=== PATIENT | female | born 1985 | race Caucasian/White ===

== ENCOUNTER 2018-04-07 15:03 | Emergency (ER) | END 2018-04-07 19:31 | disposition home or self-care (01) ==

== ENCOUNTER 2018-08-18 17:31 | Inpatient (IN) | payer MEDICAID ==
[~2018-08-18] VITALS: Ht 160 cm; Wt 130.1 kg
[~2018-08-18 17:31] MED LIST: ACET500C5 PO; CEPH-443 PO
[2018-08-18 17:46] VITALS: Ht 160 cm; Wt 130.1 kg
[2018-08-18 17:47] VITALS: BP 128/59; PULSE 72; RESP 18
--- NOTE | 2018-08-18 19:13 | TRIAGE ---
OB Triage Datetime Report Generated by CPN: 08/18/2018 19:13 Datetime: 08/18/2018 17:44 Assessment Type: Triage Maternal Assessment Level of Consciousness: Fully Conscious DTR's/Clonus: DTRs 2+; No Clonus Headache: Denies Blurred Vision: No Respiratory Effort: Unlabored; Regular Rhythm; Equal Expansion Breath Sounds, Left: Clear and Equal Breath Sounds, Right: Clear and Equal Nausea/Vomiting: Denies RUQ Epigastric Pain: Denies Lower Extremities Edema: None Degree: None Upper Extremities Edema: None Degree: None Facial Edema: None Fall Risk Assessment History of Falling: (0) No Secondary Diagnosis: (0) No Ambulatory Aid: (0) Bedrest/Nurse Assist IV Therapy: (0) No Gait: (0) Normal/Bedrest/Immobile Mental Status: (0) Oriented to Own Ability Fall Score: 0 Fall Risk Score Definition: No Risk: No action required Datetime: 08/18/2018 17:43 Time of Arrival: 08/18/2018 17:23 EGA: 26.2 Arrived By: Ambulatory Arrived From: Home Chief Complaint: pt here c/o ABD. PAIN Movement: Present Contractions: Denies/Absent Rupture of Membranes: Denies Vaginal Bleeding: None Vaginal Discharge: Denies Recent Sexual Intercouse: Denies Abdominal Trauma: Not Applicable Patient Complaints: None Time Provider Notified: 08/18/2018 18:00 Provider Notified: HADADIAN Initial Plan: UA/CVL/KAYCEE/FFN Datetime: 08/18/2018 17:40 Labor Evaluation Monitor Mode: External Heart Rate Monitor Mode: External US
[2018-08-18] MEDS ORDERED: ONDANSETRON 4 MG INJ IV PRN (19:30)
[2018-08-18] MEDS ORDERED: LACTATED RINGER'S 500 ML IV ONE (19:30)
[2018-08-18] MEDS ORDERED: MAGNESIUM SULFATE 4 GM/100 ML 100 ML IV ONE (19:30)
[2018-08-18] MEDS ORDERED: ACETAMINOPHEN 325 MG TAB PO PRN (19:30)
[2018-08-18] MEDS ORDERED: AMPICILLIN 2 GM/NS (PMX) 100 ML IV SCH (21:00)
[2018-08-18] MEDS: DOCUSATE SODIUM 100 MG CAP PO SCH (21:00)
[2018-08-18] MEDS: LACTATED RINGER'S 1,000 ML IV SCH (21:33)
[2018-08-18] MEDS: DEXAMETHASONE 4 MG/ML 5 ML INJ IM SCH (21:52)
[2018-08-18] MEDS: MAGNESIUM SULFATE 20 GM/500 ML 500 ML IV SCH (22:15)
[2018-08-19] MEDS: LACTATED RINGER'S 1,000 ML IV SCH ×2 (03:09→21:22)
[2018-08-19] MEDS: AMPICILLIN 2 GM/NS (PMX) 100 ML IVPB SCH ×2 (04:21→08:57)
[2018-08-19] MEDS: MAGNESIUM SULFATE 20 GM/500 ML 500 ML IV SCH ×3 (05:26→16:17)
[2018-08-19] MEDS: DOCUSATE SODIUM 100 MG CAP PO SCH ×2 (08:56→21:22)
[2018-08-19] MEDS: DEXAMETHASONE 4 MG/ML 5 ML INJ IM SCH ×2 (08:57→21:23)
[2018-08-20] MEDS: MAGNESIUM SULFATE 20 GM/500 ML 500 ML IV SCH ×2 (02:03→10:36)
[2018-08-20] MEDS: DOCUSATE SODIUM 100 MG CAP PO SCH ×2 (09:03→21:44)
[2018-08-20] MEDS: DEXAMETHASONE 4 MG/ML 5 ML INJ IM SCH (09:04)
[2018-08-20] MEDS: LACTATED RINGER'S 1,000 ML IV SCH ×2 (10:19→23:27)
--- NOTE | 2018-08-20 19:28 | HP ---
Date/Time of Note Date/Time of Note DATE: 08/20/18 TIME: 19:12 OB - History Hx of Present Free Text/Dictation Date of admission: 08/18/2018 Late Entry Note- Patient seen at 10:00 on 08/19/18 23 year-old 1 with single intrauterine at 26 weeks and 4 days with a ROXANN of 11/22/2018 admitted last night due to irregular uterine contractions and a cervical length of 1.4 cm. She states good movement. She denies nausea, vomiting, shortness of breath, chest pain, headache, visual changes, vaginal bleeding or LOF. Chief Complaint: Irregular uterine contractions Estimated Due Date: November 22, 2018 : 1 Care: Good Care Ultrasounds: Normal mid trimester US Obstetrical Complications: None Medical Complications: None Past Family/Social History * Past Medical, Surgical, Family and Obstetric Histories reviewed from chart. OB Admission Exam Vital Signs Vital Signs Vital Signs Date Temp Pulse Resp B/P (MAP) Pulse Ox O2 O2 Flow FiO2 Time Delivery Rate 08/18/18 98.2 72 18 128/59 Room Air 17:47 (82) Physical Exam HEENT: WNL Heart: Rhythm Normal Lungs: Clear Abdomen: WNL Extremities: Normal Membranes: Intact Heart Rate: 140's Accelerations: Accelerations Present Decelerations: No Decelerations Varibility: Moderate Contractions on Admission: >10 Minutes Apart Intensity: Mild Last 72 hours Lab Results CBC & BMP 08/18/18 20:34 Liver Function Test 08/18/18 20:34 Alanine Aminotransferase (ALT/SGPT) 26 Albumin 3.9 Alkaline Phosphatase 89 Aspartate Amino Transf (AST/SGOT) 22 Direct Bilirubin 0.00 Total Protein 7.5 Magnesium Level Test 08/19/18 00:30 08/19/18 08:06 08/19/18 12:13 08/19/18 18:35 Magnesium Level 3.9 H 4.8 H 5.2 *H 5.6 *H Test 08/20/18 00:43 08/20/18 06:30 Magnesium Level 5.7 *H 5.6 *H OB Assessment/Plan Other plan: 33-year-old 1 with single intrauterine at 26 weeks and 3 days with obesity and short cervix 1) care: - FHR: No sign of metabolic acidosis- Category I - Continuous EFM, toco - CBC, blood type and screen - vitamin, ferrous sulfate 325 mg daily p.o. - SCD - Weight on admission and then weekly - Per patient 1 hour GCT done which was abnormal, 3-hour GTT done at the clinic. Result is pending 2) Short cervix-1.4 cm - Dexamethasone 6 mg every 12 hours for 4 doses, she received first dose at 2200 on 08/18/2018 - Magnesium sulfate for 24 hours after 4thdose of dexamethasone - Ampicillin for GBS prophylaxis - Please see the orders - Perinatology and neonatology consult 3) obesity-III: Risks including but not limited to gestational diabetes, preeclampsia, macrosomia, stillbirth, complication with delivery and : infection, DVT, pulmonary edema discussed in detail with patient. She expressed understanding. Diet and exercise and significance of losing weight discussed. Consult with clinical geneticist MERA Nation Aug 20, 2018 19:27
--- NOTE | 2018-08-20 19:32 | PN ---
Date/Time of Note Date/Time of Note DATE: 08/20/18 TIME: 19:28 OB Subjective Subjective Subjective Patient seen and examined. She states good movement. She denies nausea, vomiting, shortness of breath, chest pain, abdominal pain, headache, visual changes, vaginal bleeding or LOF. OB Objective Objective Objective General: Patient appears well, alert and oriented, NAD, appropriate mood and affect ABD: gravid, soft, non-tender. Back: No CVA tenderness (B/L) LE: Mild edema. No clubbing, cyanosis, edema, thigh or calf tenderness bilaterally FHT: 130 bpm , moderate variability with acceleration, no deceleration-category I Contractions: None OB Assessment/Plan Other plan: 33-year-old 1 with single intrauterine at 26 weeks and 4 days with obesity and short cervix 1) care: - FHR: No sign of metabolic acidosis- Category I - Continuous EFM, toco - Cont vitamin, ferrous sulfate 325 mg daily p.o. - SCDs - Weekly weight - Per patient 1 hour GCT done which was abnormal, 3-hour GTT done at the clinic. Result is pending 2) Short cervix-1.4 cm - Dexamethasone 6 mg every 12 hours for 4 doses. Last dose was at 10 AM today - Magnesium sulfate for 12 hours after 4th dose of dexamethasone - She has no uterine contraction, ampicillin discontinued - Please see the orders - Perinatology and neonatology consult 3) obesity-III: Risks including but not limited to gestational diabetes, preeclampsia, macrosomia, stillbirth, complication with delivery and : infection, DVT, pulmonary edema discussed in detail with patient. She expressed understanding. Diet and exercise and significance of losing weight discussed. Consult with line repairer tower MERA Nation Aug 20, 2018 19:32
--- NOTE | 2018-08-21 01:03 | CONS ---
DATE OF ADMISSION: 08/18/2018 DATE OF CONSULTATION: 08/20/2018 TYPE OF CONSULTATION: Perinatology consult. HISTORY OF PRESENT ILLNESS: The patient is a 33-year-old G1 at currently 26 weeks and 4 days, presen zac with contraction. Her cervical length was found to be 1.4 cm, was placed on magnesium, given dex amethasone. Her medical history is not significant. The result of her glucose test that was done on Saturday came back and apparently it was normal. She does have her urinalysis showed 100,000 of mixed gram-positive. She received overall 24 hours of antibiotics. PHYSICAL EXAMINATION: VITAL SIGNS: Stable. PHYSICAL EXAMINATION: Deferred. HEART TONES: Reassuring. Currently, now reassuring for gestational age. No contraction. IMPRESSION: Intrauterine at 26 weeks and 4 days with labor and very short cervix, on magnesium sulfate, receiving dexamethasone. 100,000 of mixed gram-positive and organism which essentially is mentioned as contaminant. However, given the 100,000, it is concerning, but she did receive 24-hour ____ worth of ampicillin. RECOMMENDATIONS: I do recommend in-house management until 28 weeks. Please refrain from transvagina l cervical ____ unless it is necessary or at the time of discharge. Magnesium sulfate should be continued until 24 hours after the last dose of dexamethasone. At 28 weeks, if cervical length has not changed and she is not jocelyne, then we may consider send ing the patient home with labor precaution. In one week, I do recommend repeating a urinalys is with probably cast UA just to make sure that there is no evidence of urinary tract infection. Dictated By: SAKSHI ASHLEY MD ST/NTS Conf#: [id number] DID#: [id number] CC: MERA RICO MD;*EndCC*
[2018-08-21] MEDS: MAGNESIUM SULFATE 20 GM/500 ML 500 ML IV SCH (04:06)
--- NOTE | 2018-08-21 09:24 | PN ---
Date/Time of Note Date/Time of Note DATE: 08/21/18 TIME: 09:19 OB Subjective Subjective Subjective Patient denies any vaginal bleeding, contractions or decreased movement. Reports have small amounts of leaking with cough that she had a prior to admission to the hospital. Thinks that it is urine. Reports calf pain in the RT . Denies any chest pain shortness of breath OB Objective Objective Objective General: Patient appears well, alert and oriented, NAD, appropriate mood and affect ABD: gravid, soft, non-tender. Back: No CVA tenderness (B/L) LE: . No clubbing, cyanosis, + 2 symmetric edema, thigh or calf tenderness bilaterally FHT: 130 bpm , moderate variability with acceleration, no deceleration-category I Contractions: None Sterile speculum examination: Negative pooling, negative nitrazine, R OM test was obtained and is pending. KAYCEE requested VS - Last 72 Hours, by Label Date Temp Pulse Resp B/P (MAP) Pulse Ox O2 O2 Flow FiO2 Time Delivery Rate 08/18/18 98.2 72 18 128/59 Room Air 17:47 (82) Laboratory Tests Test 08/21/18 06:26 Lab Scanned Report REFERENCE LAB OB Assessment/Plan Other Assessment: Admitted for short cervix Stable, asymptomatic, Leaking of fluid, likely urine, sterile speculum examination negative, R OM test obtained and was sent KAYCEE requested Likely leaking of urine with coughing On magnesium, for neuroprophylaxis and for tocolysis no evidence of MAC toxicity Consider tapering magnesium, repeat CL and UA, if remain stable, might discharge per perinatologist recommendation with follow up in 2-3 days after DC home with her own OB office. Status post dexamethasone for lung maturity, more than 48 hours past last dose Follow-up with R OM test and KAYCEE Plan of care discussed with the patient and with PATSY CLARKE MD Aug 21, 2018 09:24
[2018-08-21] MEDS: DOCUSATE SODIUM 100 MG CAP PO SCH ×2 (10:55→21:07)
[2018-08-21] MEDS: LACTATED RINGER'S 1,000 ML IV SCH (13:53)
[2018-08-22] MEDS: DOCUSATE SODIUM 100 MG CAP PO SCH ×2 (09:00→21:47)
[2018-08-23] MEDS: DOCUSATE SODIUM 100 MG CAP PO SCH ×2 (08:53→21:10)
--- NOTE | 2018-08-23 12:50 | PN ---
Date/Time of Note Date/Time of Note DATE: 08/23/18 TIME: 12:45 OB Subjective Subjective Subjective Late entry note is seen on 08/22/2018 Patient seen and examined. She states good movement. She denies nausea, vomiting, shortness of breath, chest pain, abdominal pain, headache, visual changes, vaginal bleeding or LOF. OB Objective Objective Objective General: Patient appears well, alert and oriented, NAD, appropriate mood and affect ABD: gravid, soft, non-tender. Back: No CVA tenderness (B/L) LE: Mild edema. No clubbing, cyanosis, edema, thigh or calf tenderness bilaterally FHT: 125 bpm , moderate variability with acceleration, no deceleration-category I Contractions: None OB Assessment/Plan Other plan: 33-year-old 1 with single intrauterine at 26 weeks and 6 days with obesity and short cervix 1) care: - FHR: No sign of metabolic acidosis- Category I - NST every shift - Cont vitamin, ferrous sulfate 325 mg daily p.o. - SCDs - Weekly weight - She was complaining of possible leakage of fluid yesterday, speculum exam, Nitrazine test and ROM plus were negative. Ultrasound performed KAYCEE 12.4 - One of her GTT early in and at 24+ weeks was normal 2) Short cervix-1.4 cm - She is currently on rest with bathroom privileges - s/p receiving dexamethasone for 2 days, currently is steroid benefited - She received magnesium sulfate for neuro protection - She has no uterine contraction - Perinatology consult appreciated 3) obesity-III: Risks including but not limited to gestational diabetes, preeclampsia, macrosomia, stillbirth, complication with delivery and : infection, DVT, pulmonary edema discussed in detail with patient. She expressed understanding. Diet and exercise and significance of losing weight discussed. Consult with principal programmer done. MERA RICO Aug 23, 2018 12:50
--- NOTE | 2018-08-23 12:52 | PN ---
Date/Time of Note Date/Time of Note DATE: 08/23/18 TIME: 12:50 OB Subjective Subjective Subjective Patient seen and examined. She states good movement. She denies nausea, vomiting, shortness of breath, chest pain, abdominal pain, headache, visual changes, vaginal bleeding or LOF. OB Objective Objective Objective General: Patient appears well, alert and oriented, NAD, appropriate mood and affect ABD: gravid, soft, non-tender. Back: No CVA tenderness (B/L) LE: Mild edema. No clubbing, cyanosis, edema, thigh or calf tenderness bilaterally FHT: 130 bpm , moderate variability with acceleration, no deceleration-category I Contractions: None OB Assessment/Plan Other plan: 33-year-old 1 with single intrauterine at 26 weeks and 6 days with obesity and short cervix 1) care: - FHR: No sign of metabolic acidosis- Category I - NST every shift - Cont vitamin, ferrous sulfate 325 mg daily p.o. - SCDs - Weekly weight - One of her GTT early in and at 24+ weeks was normal 2) Short cervix-1.4 cm - She is currently on rest with bathroom privileges - s/p receiving dexamethasone for 2 days, currently is steroid benefited - She received magnesium sulfate for neuro protection - She has no uterine contraction - Perinatology consult appreciated - Bessy CL at 28 wks 3) obesity-III: Risks including but not limited to gestational diabetes, preeclampsia, macrosomia, stillbirth, complication with delivery and : infection, DVT, pulmonary edema discussed in detail with patient. She expressed understanding. Diet and exercise and significance of losing weight discussed. Consult with cyber security systems engineer done. MERA RICO Aug 23, 2018 12:52
[2018-08-24] MEDS: DOCUSATE SODIUM 100 MG CAP PO SCH ×2 (09:33→21:00)
--- NOTE | 2018-08-25 00:56 | PN ---
Date/Time of Note Date/Time of Note DATE: 08/25/18 TIME: 00:51 OB Subjective Subjective Subjective Patient seen and examined. She states good movement. She denies nausea, vomiting, shortness of breath, chest pain, abdominal pain, headache, visual changes, vaginal bleeding or LOF. OB Objective Objective Objective General: Patient appears well, alert and oriented, NAD, appropriate mood and affect ABD: gravid, soft, non-tender. Back: No CVA tenderness (B/L) LE: Mild edema. No clubbing, cyanosis, edema, thigh or calf tenderness bilaterally FHT: 135 bpm , moderate variability with acceleration, no deceleration-category I Contractions: None OB Assessment/Plan Other plan: 33-year-old 1 with single intrauterine at 27 weeks with obesity and short cervix 1) care: - FHR: No sign of metabolic acidosis- Category I - NST every shift - Cont vitamin, ferrous sulfate 325 mg daily p.o. - SCDs - Weekly weight - One of her GTT early in and at 24+ weeks was normal 2) Short cervix-1.4 cm - She is currently on rest with bathroom privileges - She has no uterine contraction - s/p receiving dexamethasone and magnesium sulfate - Perinatology consult appreciated - Repeat CL at 28 wks 3) obesity-III: Risks including but not limited to gestational diabetes, preeclampsia, macrosomia, stillbirth, complication with delivery and : infection, DVT, pulmonary edema discussed in detail with patient. She expressed understanding. Diet and exercise and significance of losing weight discussed. Consult with drywall mechanic done. 4) +U/C > 100,000 with mixed G+ due to contamination, repeat U/A tomorrow MERA RICO Aug 25, 2018 00:56
[2018-08-25] MEDS: DOCUSATE SODIUM 100 MG CAP PO SCH ×2 (09:42→21:00)
--- NOTE | 2018-08-26 01:22 | PN ---
Date/Time of Note Date/Time of Note DATE: 08/26/18 TIME: : OB Subjective Subjective Subjective Late entry note. Patient seen at 0 730 on 08/25/2018 Patient seen and examined. She states good movement. She denies nausea, vomiting, shortness of breath, chest pain, abdominal pain, headache, visual changes, vaginal bleeding or LOF. OB Objective Objective Objective General: Patient appears well, alert and oriented, NAD, appropriate mood and affect ABD: gravid, soft, non-tender. Back: No CVA tenderness (B/L) LE: Mild edema. No clubbing, cyanosis, edema, thigh or calf tenderness bilaterally FHT: 140 bpm , moderate variability with acceleration, no deceleration-category I Contractions: None OB Assessment/Plan Other plan: 33-year-old 1 with single intrauterine at 27 2/7 weeks with obesity and short cervix 1) care: - FHR: No sign of metabolic acidosis- Category I - NST every shift - Cont vitamin, ferrous sulfate 325 mg daily p.o. - SCDs - Weekly weight - One of her GTT early in and at 24+ weeks was normal 2) Short cervix-1.4 cm - She is currently on rest with bathroom privileges - She has no uterine contraction - s/p receiving dexamethasone and magnesium sulfate - Perinatology consult appreciated - Repeat CL at 28 wks 3) obesity-III: Risks including but not limited to gestational diabetes, preeclampsia, macrosomia, stillbirth, complication with delivery and : infection, DVT, pulmonary edema discussed in detail with patient. She expressed understanding. Diet and exercise and significance of losing weight discussed. Consult with field artillery crewmember done. 4) +U/C > 100,000 with mixed G+ due to contamination, repeat U/A tomorrow MERA RICO Aug 26, 2018 01:22
[2018-08-26] MEDS: DOCUSATE SODIUM 100 MG CAP PO SCH (08:48)
[2018-08-26] MEDS ORDERED: DIPHTH/TET/ACEL PERTUSS (ADULT) 0.5 ML VIAL IM* ONE (19:00)
--- NOTE | 2018-08-26 19:41 | PN ---
Date/Time of Note Date/Time of Note DATE: 08/26/18 TIME: 19:38 OB Subjective Subjective Subjective Patient seen and examined. She states good movement. She denies nausea, vomiting, shortness of breath, chest pain, abdominal pain, headache, visual changes, vaginal bleeding or LOF. OB Objective Objective Objective General: Patient appears well, alert and oriented, NAD, appropriate mood and affect ABD: gravid, soft, non-tender. Back: No CVA tenderness (B/L) LE: Mild edema. No clubbing, cyanosis, edema, thigh or calf tenderness bilaterally FHT: 130 bpm , moderate variability with acceleration, no deceleration-category I Contractions: None OB Assessment/Plan Other plan: 33-year-old 1 with single intrauterine at 27 2/7 weeks with obesity and short cervix 1) care: - FHR: No sign of metabolic acidosis- Category I - NST every shift - Cont vitamin, ferrous sulfate 325 mg daily p.o. - SCDs - Weekly weight - One of her GTT early in and at 24+ weeks was normal - Tdap vaccine tomorrow 2) Short cervix-1.4 cm - She is currently on rest with bathroom privileges - She has no uterine contraction - s/p receiving dexamethasone and magnesium sulfate - Perinatology consult appreciated - Repeat CL at 28 wks 3) obesity-III: Risks including but not limited to gestational diabetes, preeclampsia, macrosomia, stillbirth, complication with delivery and : infection, DVT, pulmonary edema discussed in detail with patient. She expressed understanding. Diet and exercise and significance of losing weight discussed. Consult with flower stripper done. MERA RICO Aug 26, 2018 19:41
[2018-08-27] MEDS: DOCUSATE SODIUM 100 MG CAP PO SCH ×2 (09:00→21:33)
--- NOTE | 2018-08-27 15:01 | PN ---
Date/Time of Note Date/Time of Note DATE: 08/27/18 TIME: 14:57 OB Subjective Subjective Subjective Patient seen and examined. She states good movement. She denies nausea, vomiting, shortness of breath, chest pain, abdominal pain, headache, visual changes, vaginal bleeding or LOF. OB Objective Objective Objective General: Patient appears well, alert and oriented, NAD, appropriate mood and affect ABD: gravid, soft, non-tender. Back: No CVA tenderness (B/L) LE: Mild edema. No clubbing, cyanosis, edema, thigh or calf tenderness bilaterally FHT: 135 bpm , moderate variability with acceleration, no deceleration-category I Contractions: None OB Assessment/Plan Other plan: 33-year-old 1 with single intrauterine at 27 4/7 weeks with obesity and short cervix 1) care: - FHR: No sign of metabolic acidosis- Category I - NST every shift - Cont vitamin, ferrous sulfate 325 mg daily p.o. - SCDs - Weekly weight - One of her GTT early in and at 24+ weeks was normal - She received Tdap vaccine today 2) Short cervix-1.4 cm - She is currently on rest with bathroom privileges - She has no uterine contraction - s/p receiving dexamethasone and magnesium sulfate - Perinatology consult appreciated - Repeat CL at 28 wks 3) obesity-III: Risks including but not limited to gestational diabetes, preeclampsia, macrosomia, stillbirth, complication with delivery and : infection, DVT, pulmonary edema discussed in detail with patient. She expressed understanding. Diet and exercise and significance of losing weight discussed. Consult with driver lifter of sanitation truck done. MERA RICO Aug 27, 2018 15:01
[2018-08-28] MEDS: DOCUSATE SODIUM 100 MG CAP PO SCH ×2 (09:41→21:10)
--- NOTE | 2018-08-28 16:51 | PN ---
Date/Time of Note Date/Time of Note DATE: 08/28/18 TIME: 16:49 OB Subjective Subjective Subjective Patient is comfortable. Denies any leaking of fluid, vaginal bleeding decreased movement. Denies any complaint. OB Objective Objective Objective General appearance: Alert and oriented x4 does not appear to be in any acute distress Abdomen: Soft, gravid, fundal height consider gestational age NST: No contraction of the monitor. heart tracing appropriate for gestational age Extremities: No calf tenderness, no click no cord palpable OB Assessment/Plan Other Assessment: 27 weeks and 5 days Admitted for short cervix. No evidence of labor. Status post a full course of steroid and magnesium about a week ago when she was admitted. Currently off of magnesium. She is a stable. No evidence of labor. No evidence of PPROM. Continue routine antepartum care Consider repeat cervical length tomorrow Follow-up with perinatologist PATSY DEVI MD Aug 28, 2018 16:51
[2018-08-28] MEDS ORDERED: DIPHTH/TET/ACEL PERTUSS (ADULT) 0.5 ML VIAL IM* ONE (19:00)
[2018-08-29] MEDS: DOCUSATE SODIUM 100 MG CAP PO SCH ×2 (09:35→21:00)
[2018-08-29] MEDS: PRENATAL VITAMIN PO SCH (21:50)
[2018-08-29] MEDS: FERROUS SULFATE (EC) 325 MG TAB PO SCH (21:50)
--- NOTE | 2018-08-29 22:45 | PN ---
Date/Time of Note Date/Time of Note DATE: 08/29/18 TIME: 22:42 OB Subjective Subjective Subjective Patient seen and examined. She states good movement. She denies nausea, vomiting, shortness of breath, chest pain, abdominal pain, headache, visual changes, vaginal bleeding or LOF. OB Objective Objective Objective General: Patient appears well, alert and oriented, NAD, appropriate mood and affect ABD: gravid, soft, non-tender. Back: No CVA tenderness (B/L) LE: Mild edema. No clubbing, cyanosis, edema, thigh or calf tenderness bilaterally FHT: 14 bpm , moderate variability with acceleration, no deceleration-category I Contractions: None OB Assessment/Plan Other plan: 33-year-old 1 with single intrauterine at 27 6/7 weeks with obesity and short cervix 1) care: - FHR: No sign of metabolic acidosis- Category I - NST every shift - Cont vitamin, ferrous sulfate 325 mg daily p.o. - SCDs - Weekly weight - One of her GTT early in and at 24+ weeks was normal - She received Tdap vaccine in current admission 2) Short cervix-1.4 cm - She is currently on rest with bathroom privileges - She has no uterine contraction - s/p receiving dexamethasone and magnesium sulfate - Repeat CL at 28 wks MERA RICO Aug 29, 2018 22:44
--- NOTE | 2018-08-30 09:30 | PN ---
Date/Time of Note Date/Time of Note DATE: 08/30/18 TIME: 09:24 OB Subjective Subjective Subjective Patient seen and examined. She states good movement. She denies nausea, vomiting, shortness of breath, chest pain, abdominal pain, headache, visual changes, vaginal bleeding or LOF. OB Objective Objective Objective General: Patient appears well, alert and oriented, NAD, appropriate mood and affect ABD: gravid, soft, non-tender. Back: No CVA tenderness (B/L) LE: Mild edema. No clubbing, cyanosis, edema, thigh or calf tenderness bilaterally FHT: 135 bpm , moderate variability with acceleration, no deceleration-category I Contractions: None OB Assessment/Plan Other plan: 33-year-old 1 with single intrauterine at 28 weeks with obesity and short cervix 1) care: - FHR: No sign of metabolic acidosis- Category I - NST every shift - Cont vitamin, ferrous sulfate 325 mg daily p.o. - SCDs - Weekly weight - One of her GTT early in and at 24+ weeks was normal - She received Tdap vaccine in current admission 2) Short cervix: - She is currently on rest with bathroom privileges - She has no uterine contraction - s/p receiving dexamethasone and magnesium sulfate - Repeat CL at 28 wks - 1.4 cm CL on admission, repeat us today 1.1 cm, int os is dilated to 3.6 cm. EFW: 951 gram, 5.9%, breech presentation - Cont current management MERA RICO Aug 30, 2018 09:30
[2018-08-30] MEDS: DOCUSATE SODIUM 100 MG CAP PO SCH ×2 (11:37→20:32)
[2018-08-30] MEDS: FERROUS SULFATE (EC) 325 MG TAB PO SCH (20:32)
[2018-08-30] MEDS: PRENATAL VITAMIN PO SCH (20:32)
[2018-08-31] MEDS: DOCUSATE SODIUM 100 MG CAP PO SCH ×2 (09:00→21:00)
[2018-08-31] MEDS: FERROUS SULFATE (EC) 325 MG TAB PO SCH (21:03)
[2018-08-31] MEDS: PRENATAL VITAMIN PO SCH (21:03)
[2018-09-01] MEDS: PRENATAL VITAMIN PO SCH (21:54)
[2018-09-01] MEDS: FERROUS SULFATE (EC) 325 MG TAB PO SCH (21:54)
[2018-09-01] MEDS: DOCUSATE SODIUM 100 MG CAP PO SCH (21:55)
--- NOTE | 2018-09-02 12:46 | CONS ---
DATE OF ADMISSION: 08/18/2018 DATE OF CONSULTATION: 09/01/2018 HISTORY OF PRESENT ILLNESS: The patient was originally admitted 2 weeks ago with cervical length of 1.1 cm. Cervical length was again done around 28 weeks, which was 2 days ago, it showed the internal os to be 3 cm dilated. Fetus to be Transverse position. RECOMMENDATIONS: I explained to her the changes and recommended lengthier stay, at least for 2 weeks . We can check the cervical length in 2 weeks. If there is no change, possibly she can go home. Ho wever, I would like her to stay longer, given the cervical internal os reported to be 3 cm open with the fetus in transverse position, which increases the risk of cord prolapse in case that internal os starts to open. Talked to her about 15 minutes in the presence of Yanni, the nurse. Dictated By: SAKSHI ASHLEY MD ST/NTS Conf#: [id number] DID#: [id number] CC: MERA RICO MD;*EndCC*
[2018-09-02] MEDS: PRENATAL VITAMIN PO SCH (21:12)
[2018-09-02] MEDS: FERROUS SULFATE (EC) 325 MG TAB PO SCH (21:12)
[2018-09-02] MEDS: DOCUSATE SODIUM 100 MG CAP PO SCH (21:13)
[2018-09-03] MEDS: PRENATAL VITAMIN PO SCH (20:57)
[2018-09-03] MEDS: FERROUS SULFATE (EC) 325 MG TAB PO SCH (20:57)
[2018-09-03] MEDS: DOCUSATE SODIUM 100 MG CAP PO SCH (20:57)
--- NOTE | 2018-09-03 23:31 | QN ---
Documentation Comment 33-year-old 1 with single intrauterine at 28 weeks 2/ with obesity and short cervix 1) care: - FHR: No sign of metabolic acidosis- Category I - NST every shift - Cont vitamin, ferrous sulfate 325 mg daily p.o. - SCDs - Weekly weight - One of her GTT early in and at 24+ weeks was normal - She received Tdap vaccine in current admission 2) Short cervix: - She is currently on rest with bathroom privileges - She has no uterine contraction - s/p receiving dexamethasone and magnesium sulfate - Repeat CL at 28 wks - 1.4 cm CL on admission, repeat us today CL 1.1 cm, int os is dilated to 3.6 cm. EFW: 951 gram, 5.9%, breech presentation - Cont current management until 30 weeks then reevaluate MERA RICO Sep 03, 2018 23:31
--- NOTE | 2018-09-04 14:42 | PN ---
Date/Time of Note Date/Time of Note DATE: 09/04/18 TIME: 14:40 OB Subjective Subjective Subjective Patient denies any contraction. Denies any vaginal bleeding leaking of fluid or uterine contraction. Denies any urinary symptoms. Denies any pelvic pressure. OB Objective Objective Objective Appearance: Alert and oriented x4 does not appear to be in any acute distress. Comfortable at bed Abdomen: Soft, gravid, fundal height consider gestational age NST: Category 1 [place] no contraction noted on the monitor Extremities: No calf tenderness, 1+ bilateral symmetric edema, negative Homans sign, no cord palpable CLINICAL INDICATION: Pain TECHNIQUE: Multiple transverse and longitudinal grayscale images of the pelvis were obtained transabdominally and transvaginally.. COMPARISON: US 08/29/2018 FINDINGS: The cervix is short with a length of 1.1 cm. The internal os is dilated to 3.6 cm. There is a single live intrauterine gestation. Cardiac activity is present with 148 beats per minute. There is a transverse maternal left presentation. The placenta is anterior. There is no evidence for an abruption or placenta previa. RPTAT: AA IMPRESSION: Incompetent cervix with the internal os dilated 3.6 cm. Cervix is short measuring 1.1 cm in length. OB Assessment/Plan Other Assessment: IUP at 28 weeks and 5 days Admitted for short cervix Status post full course of steroid, completed about 3 weeks ago Status post magnesium for neuro prophylaxis, about 3 weeks ago Recent cervical length 1.1 with funneling No active contraction, Consider starting progesterone vaginally , Continue bedrest DVT prophylaxis PATSY DEVI MD Sep 04, 2018 14:42
[2018-09-04] MEDS: DOCUSATE SODIUM 100 MG CAP PO SCH (22:00)
[2018-09-04] MEDS: FERROUS SULFATE (EC) 325 MG TAB PO SCH (22:00)
[2018-09-04] MEDS: PRENATAL VITAMIN PO SCH (22:00)
[2018-09-04] MEDS: PROGESTERONE 100 MG CAP VAG SCH (22:01)
[2018-09-05] MEDS: DOCUSATE SODIUM 100 MG CAP PO SCH (21:06)
[2018-09-05] MEDS: PRENATAL VITAMIN PO SCH (21:07)
[2018-09-05] MEDS: PROGESTERONE 100 MG CAP VAG SCH (21:07)
[2018-09-05] MEDS: FERROUS SULFATE (EC) 325 MG TAB PO SCH (21:07)
--- NOTE | 2018-09-06 | QN ---
Documentation Comment IUP at 28 weeks and 6 days Admitted for short cervix Status post full course of steroid, completed about 3 weeks ago Status post magnesium for neuro prophylaxis, about 3 weeks ago Recent cervical length 1.1 with funneling No active contraction, Consider starting progesterone vaginally , Continue bedrest DVT prophylaxis MERA RICO Sep 05, 2018 23:59
--- NOTE | 2018-09-06 08:23 | PN ---
Date/Time of Note Date/Time of Note DATE: 09/06/18 TIME: 08:16 OB Subjective Subjective Subjective Patient seen and examined. She states good movement. She denies nausea, vomiting, shortness of breath, chest pain, abdominal pain, headache, visual changes, vaginal bleeding or LOF. OB Objective Objective Objective General: Patient appears well, alert and oriented, NAD, appropriate mood and affect ABD: gravid, soft, non-tender. Back: No CVA tenderness (B/L) LE: Mild edema. No clubbing, cyanosis, edema, thigh or calf tenderness bilaterally FHT: 130 bpm , moderate variability with acceleration, no deceleration-category I Contractions: None OB Assessment/Plan Other plan: 33-year-old 1 with single intrauterine at 29 weeks with obesity and short cervix 1) care: - FHR: No sign of metabolic acidosis- Category I - NST every shift - Cont vitamin, ferrous sulfate 325 mg daily p.o. - SCDs - Weekly weight - She received Tdap vaccine in current admission 2) Short cervix: - She is currently on rest with bathroom privileges - She has no uterine contraction - s/p receiving dexamethasone and magnesium sulfate - Repeat CL at 30 wks - 1.4 cm CL on admission, repeat us at 28 wks: 1.1 cm, int os is dilated to 3.6 cm. EFW: 951 gram, 5.9%, breech presentation - She has an appointment with Dr. Rouse next week, recommended keep her appointment - Cont current management MERA RICO Sep 06, 2018 08:23
[2018-09-06] MEDS: DOCUSATE SODIUM 100 MG CAP PO SCH (21:20)
[2018-09-06] MEDS: FERROUS SULFATE (EC) 325 MG TAB PO SCH (21:20)
[2018-09-06] MEDS: PROGESTERONE 100 MG CAP VAG SCH (21:20)
[2018-09-06] MEDS: PRENATAL VITAMIN PO SCH (21:20)
--- NOTE | 2018-09-07 12:03 | PN ---
Date/Time of Note Date/Time of Note DATE: 09/07/18 TIME: 12:01 OB Subjective Subjective Subjective Patient seen and examined. She states good movement. She denies nausea, vomiting, shortness of breath, chest pain, abdominal pain, headache, visual changes, vaginal bleeding or LOF. OB Objective Objective Objective General: Patient appears well, alert and oriented, NAD, appropriate mood and affect ABD: gravid, soft, non-tender. Back: No CVA tenderness (B/L) LE: Mild edema. No clubbing, cyanosis, edema, thigh or calf tenderness bilaterally FHT: 140 bpm , moderate variability with acceleration, no deceleration-category I Contractions: None 33-year-old 1 with single intrauterine at 29 1/7 weeks with obesity and short cervix OB Assessment/Plan Other plan: 1) care: - FHR: No sign of metabolic acidosis- Category I - NST every shift - Cont vitamin, ferrous sulfate 325 mg daily p.o. - SCDs - Weekly weight - She received Tdap vaccine in current admission 2) Short cervix: - She is currently on rest with bathroom privileges - She has no uterine contraction - s/p receiving dexamethasone and magnesium sulfate - Repeat CL at 30 wks - 1.4 cm CL on admission, repeat us at 28 wks: 1.1 cm, int os is dilated to 3.6 cm. EFW: 951 gram, 5.9%, breech presentation - She has an appointment with Dr. Rouse on 09/11/18, recommended keep her appointment - Cont current management MERA RICO Sep 07, 2018 12:03
[2018-09-07] MEDS: FERROUS SULFATE (EC) 325 MG TAB PO SCH (20:58)
[2018-09-07] MEDS: PRENATAL VITAMIN PO SCH (20:58)
[2018-09-07] MEDS: DOCUSATE SODIUM 100 MG CAP PO SCH (20:58)
[2018-09-07] MEDS: PROGESTERONE 100 MG CAP VAG SCH (20:59)
[2018-09-08] MEDS: FERROUS SULFATE (EC) 325 MG TAB PO SCH (21:06)
[2018-09-08] MEDS: DOCUSATE SODIUM 100 MG CAP PO SCH (21:06)
[2018-09-08] MEDS: PROGESTERONE 100 MG CAP VAG SCH (21:06)
[2018-09-08] MEDS: PRENATAL VITAMIN PO SCH (21:06)
--- NOTE | 2018-09-08 23:07 | PN ---
Date/Time of Note Date/Time of Note DATE: 09/08/18 TIME: 23:03 OB Subjective Subjective Subjective Patient seen and examined. She states good movement. She denies nausea, vomiting, shortness of breath, chest pain, abdominal pain, headache, visual changes, vaginal bleeding or LOF. OB Objective Objective Objective General: Patient appears well, alert and oriented, NAD, appropriate mood and affect ABD: gravid, soft, non-tender. Back: No CVA tenderness (B/L) LE: Mild edema. No clubbing, cyanosis, edema, thigh or calf tenderness bilaterally FHT: 135 bpm , moderate variability with acceleration, no deceleration-category I Contractions: None OB Assessment/Plan Other plan: 33-year-old 1 with single intrauterine at 29 2/7 weeks with obesity and short cervix 1) care: - FHR: No sign of metabolic acidosis- Category I - NST every shift - Cont vitamin, ferrous sulfate 325 mg daily p.o. - SCDs - Weekly weight - She received Tdap vaccine in current admission 2) Short cervix: - She is currently on rest with bathroom privileges - She has no uterine contraction - s/p receiving dexamethasone and magnesium sulfate - Repeat CL at 30 wks - 1.4 cm CL on admission, repeat us at 28 wks: 1.1 cm, int os is dilated to 3.6 cm. EFW: 951 gram, 5.9%, breech presentation - She has an appointment with Dr. Rouse on 09/11/18, recommended keep her appointment - Cont current management MERA RICO Sep 08, 2018 23:07
--- NOTE | 2018-09-09 00:25 | QN ---
Documentation Comment 33-year-old 1 with single intrauterine at 29 3/7 weeks with obesity and short cervix. She is currently doing well and has no uterine contractions. heart rate is category 1. She has received the dexamethasone and magnesium sulfate early after admission. Cervical length on admission was 1.4 cm repeat ultrasound 28 with cervical length of 1.1 cm, int os is dilated to 3.6 cm. EFW: 951 gram, 5.9%, breech presentation Is currently on 200 mg vaginal progesterone. She has an appointment with Dr. Rouse on 09/11/18, recommended keep her appointment MERA RICO Sep 09, 2018 00:25
--- NOTE | 2018-09-09 15:44 | QN ---
Documentation Comment 29+3 wks GA with shor cervix No complaints Last NST reassuring [place] No CTXs --->management as per Perinatology DEACON SALINAS M.D. Sep 09, 2018 15:44
[2018-09-09] MEDS: DOCUSATE SODIUM 100 MG CAP PO SCH (21:09)
[2018-09-09] MEDS: PROGESTERONE 100 MG CAP VAG SCH (21:09)
[2018-09-09] MEDS: PRENATAL VITAMIN PO SCH (21:09)
[2018-09-09] MEDS: FERROUS SULFATE (EC) 325 MG TAB PO SCH (21:09)
--- NOTE | 2018-09-10 15:16 | PN ---
Date/Time of Note Date/Time of Note DATE: 09/10/18 TIME: 15:10 OB Subjective Subjective Subjective Date of admission: 08/18/2018 Patient seen and examined. She states good movement. She denies nausea, vomiting, shortness of breath, chest pain, abdominal pain, headache, visual changes, vaginal bleeding or LOF. OB Objective Objective Objective General: Patient appears well, alert and oriented, NAD, appropriate mood and affect ABD: gravid, soft, non-tender Back: No CVA tenderness (B/L) LE: Mild edema. No clubbing, cyanosis, edema, thigh or calf tenderness bilaterally FHT: 130 bpm , moderate variability with acceleration, no deceleration-category I Contractions: None OB Assessment/Plan Other plan: 33-year-old 1 with single intrauterine at 29 4/7 weeks with obesity and short cervix 1) care: - FHR: No sign of metabolic acidosis- Category I - NST every shift - Cont vitamin, ferrous sulfate 325 mg daily p.o. - SCDs - Weekly weight - She received Tdap vaccine in current admission 2) Short cervix: - She is currently on rest with bathroom privileges - She has no uterine contraction - s/p receiving dexamethasone (received on 08/18 and )and magnesium sulfate - US for growth and CL on this coming Saturday - 1.4 cm CL on admission, repeat us at 28 wks: 1.1 cm, int os is dilated to 3.6 cm. EFW: 951 gram, 5.9%, breech presentation - She is currently on vaginal progesterone 200 mg every night, continue same dose - Cont current management - I have discussed patient over the phone with Dr. Rouse who has agreed with above plan MERA RICO Sep 10, 2018 15:16
[2018-09-10] MEDS: DOCUSATE SODIUM 100 MG CAP PO SCH (20:50)
[2018-09-10] MEDS: FERROUS SULFATE (EC) 325 MG TAB PO SCH (20:50)
[2018-09-10] MEDS: PROGESTERONE 100 MG CAP VAG SCH (20:50)
[2018-09-10] MEDS: PRENATAL VITAMIN PO SCH (20:50)
--- NOTE | 2018-09-11 18:16 | PN ---
Date/Time of Note Date/Time of Note DATE: 09/11/18 TIME: 18:10 OB Subjective Subjective Subjective 09/11/2018 Denies any leaking of fluid, vaginal bleeding decreased movement or contractions OB Objective Objective Objective GA: A&O, NAD. Abdomen: soft, non tender, size consistent with date NST,.Appropraite for GA No contractions on the monitor on toco noted OB Assessment/Plan Other Assessment: IUP at 29 weeks and 5 days Admited for short cervix Asymptomatic s/p Steriods full course and Magnesium on admission Currently asymptomatic On vaginal progesterone suppository PLan to repeat TVCL tomorrow follow up with perinatologist. If stable might be able to discharge home at the discretion of primary OB attending and perinatologist Continue inpatient management DVT prophylaxis, has SCDs on PATSY DEVI MD Sep 11, 2018 18:16
[2018-09-11] MEDS: FERROUS SULFATE (EC) 325 MG TAB PO SCH (21:18)
[2018-09-11] MEDS: PRENATAL VITAMIN PO SCH (21:18)
[2018-09-11] MEDS: PROGESTERONE 100 MG CAP VAG SCH (21:18)
[2018-09-11] MEDS: DOCUSATE SODIUM 100 MG CAP PO SCH (21:18)
[2018-09-12] MEDS: DEXAMETHASONE 4 MG/ML 1 ML INJ IV SCH ×2 (01:47→13:46)
--- NOTE | 2018-09-12 15:15 | QN ---
Documentation Comment I was requested to discharge patient by her OB who spoke to MFM who rec to discharge patient 's been here since 08/18/18 ,who is anxious to go home and ready to leave even AMA when I arrived. because she was told she could be discharged by her OB if repeated CVL on u/s in stable U/s internal os open to 2.8cm with 0.9cm in length from CVL 1.4 cm with funneling on 08/18/18 patient only received one course of dexamethasone on admission no rescue dose been given explained to patient regarding condition she is and risk to PTB patient agree to stay at least for rescue dose of dexamethasone Tx REBEKAH POSADAS MD Sep 12, 2018 15:14
[2018-09-12] MEDS: FERROUS SULFATE (EC) 325 MG TAB PO SCH (21:17)
[2018-09-12] MEDS: DOCUSATE SODIUM 100 MG CAP PO SCH (21:17)
[2018-09-12] MEDS: PROGESTERONE 100 MG CAP VAG SCH (21:18)
[2018-09-12] MEDS: PRENATAL VITAMIN PO SCH (21:18)
[2018-09-13] MEDS: DEXAMETHASONE 4 MG/ML 1 ML INJ IV SCH ×2 (01:47→14:28)
--- NOTE | 2018-09-13 11:25 | PN ---
Date/Time of Note Date/Time of Note DATE: 09/13/18 TIME: 11:19 OB Subjective Subjective Subjective Denies any complaint, Denies any pelvic pain, pressure, abdominal pain. LOF, Decreased movemetn OB Objective Objective Objective GA: A&O, NAD Abdomen: Soft, non tender, Gravid. Size consistent with date NST: Cat 1 No contractions noted on the monitor PROCEDURE: US OB AND ULTRASOUND CERVIX. CLINICAL INDICATION: Size and dates , short cervix TECHNIQUE: Multiple sonographic images of the pelvis and gravid uterus were obtained. The images were reviewed on a PACS workstation. Transvaginal images of the cervix were also obtained. COMPARISON: US 08/30/2018 FINDINGS: Cervix: Length: 0.9 cm. Internal os dilated up to 2.8 cm. Gestation: Single live intrauterine gestation. Cardiac activity: 137 beats per minute. Presentation: Vertex. Placenta: Location: Anterior. Appearance: No previa or abruption. Measurements: BPD = 7.6 cm, 30 weeks and 3 days HC = 28.5 cm, 31 weeks and 2 days AC = 24.9 cm, 29 weeks and 1 day FL = 5.4 cm, 28 weeks and 4 days Gestational Age: AUA estimated gestational age: 29 weeks 6 days LMP estimated gestational age: 29 weeks 6 days AUA estimated date of delivery: 11/22/18 The EFW = 1360 g, 18.7%ile based on LMP age. RPTAT: AA IMPRESSION: Single live intrauterine gestation of approximately 29 weeks and 6 days based on ultrasound measurements. Short cervix measures 0.9 cm in length. Dilated internal os up to 2.8 cm. OB Assessment/Plan Other Assessment: IUP at 30 weeks and 4 days Admited for labor S/p one full course of steroid and Magnesum Cervix now shorter with internal os opened to 2. 6 cm On vaginal progesterone suppository Rescue steroid started Patient asymptomatic Continue Completion second course of steroid Discussed with the patient continue inpatient management Follow up with perinatologist PATSY DEVI MD Sep 13, 2018 11:25
[2018-09-13] MEDS: PRENATAL VITAMIN PO SCH (21:11)
[2018-09-13] MEDS: FERROUS SULFATE (EC) 325 MG TAB PO SCH (21:11)
[2018-09-13] MEDS: DOCUSATE SODIUM 100 MG CAP PO SCH (21:11)
[2018-09-13] MEDS: PROGESTERONE 100 MG CAP VAG SCH (21:13)
[2018-09-14] MEDS ORDERED: DEXAMETHASONE 10 MG/ML 1 ML INJ IM ONE (03:00)
--- NOTE | 2018-09-14 13:53 | DS ---
Date/Time of Note Date/Time of Note DATE: 09/14/18 TIME: 13:45 Obstetrical Discharge Record Final Diagnosis Final Diagnosis: not delivered Other Final Diagnosis Date of admission: 08/18/2018 33-year-old 1 with single intrauterine at 30 2/7 weeks with obesity and short cervix. She has received magnesium sulfate for neuro protection. She received dexamethasone for lung maturity on 08/18 and with rescue dose on 09/12 and now. Cervical length on admission was 1.4 cm, repeat at 28 weeks 1.1 cm with the 3.6 cm dilation of internal loss. Repeat ultrasound at 30 weeks again revealed short cervix.she was seen by Dr. Rouse at 30 weeks. The patient states is living 5 minutes for from hospital and would like to be discharged home. She signed AMA. She will have follow-up with Dr. Rouse and me in [facility] [place] weekly. Risk of labor discussed in detail with patient. She expressed understanding. All of her questions answered. Sign and symptom of labor, preeclampsia, kick count discussed with patient in detail. Strongly recommend come back to triage with any concern. Condition on Discharge Physical Assessment Voiding: Yes Bowel Movement: Yes Calf Tenderness: No Patient Condition: Stable MERA RICO Sep 14, 2018 13:53
== END 2018-09-14 12:53 | disposition left against medical advice (07) | DRG 833 ==
LOC: OBT 17:31 → L-D 17:33 → OBT 18:50 → PP1 18:57 → L-D 20:16 → PP1 08-19 03:28
PROVIDERS: ADMIT Obstetrics & Gynecology; ATTEND Obstetrics & Gynecology
DX: O26.873 Cervical shortening, third trimester (principal); O99.212 Obesity complicating pregnancy, second trimester
CPT/HCPCS: 76815; 76817; 76818; 80053; 81001; 81003; 82731; 83735; 84112; 85025; 85610; 85730; 86592; 86850; 86900; 86901; 87086; G0463; J0290; J1100; J3475; J7120

== ENCOUNTER 2018-10-21 15:51 | Inpatient (IN) | payer MEDICAID ==
[~2018-10-21] VITALS: Ht 160 cm; Wt 132.3 kg
[2018-10-21 16:02] VITALS: BP 150/80; PULSE 99; RESP 18
[2018-10-21 16:03] VITALS: Ht 160 cm; Wt 132.3 kg
--- NOTE | 2018-10-21 18:19 | TRIAGE ---
OB Triage Datetime Report Generated by CPN: 10/21/2018 18:09 Datetime: 10/21/2018 17:49 Labor Evaluation Frequency: occ Monitor Mode: External Duration (sec)2399: 50 Quality: Mild Pattern: Normal: <= 5 Contractions in 10 Minutes Resting Tone [place]: Relaxed Heart Rate FHR Baseline Rate: 135 Monitor Mode: External US Variability: Moderate 6-25 bpm Accelerations: 15X15 Decelerations: None Category: Category I Datetime: 10/21/2018 17:00 Labor Evaluation Frequency: OCC Monitor Mode: External Duration (sec)2399: 60-80 Quality: Mild Pattern: Normal: <= 5 Contractions in 10 Minutes Resting Tone [place]: Relaxed Heart Rate FHR Baseline Rate: 135 Monitor Mode: External US Variability: Moderate 6-25 bpm Accelerations: 15X15 Decelerations: None Category: Category I Pain Presence: None/Denies Pain Type: N/A Datetime: 10/21/2018 16:01 Assessment Type: Triage Maternal Assessment Level of Consciousness: Fully Conscious DTR's/Clonus: DTRs 2+; No Clonus Headache: Denies Blurred Vision: No Respiratory Effort: Unlabored; Regular Rhythm; Equal Expansion Breath Sounds, Left: Clear and Equal Breath Sounds, Right: Clear and Equal Nausea/Vomiting: Denies RUQ Epigastric Pain: Denies Lower Extremities Edema: None Degree: None Upper Extremities Edema: None Facial Edema: None Fall Risk Assessment History of Falling: (0) No Secondary Diagnosis: (0) No Ambulatory Aid: (0) Bedrest/Nurse Assist IV Therapy: (0) No Gait: (0) Normal/Bedrest/Immobile Mental Status: (0) Oriented to Own Ability Fall Score: 0 Fall Risk Score Definition: No Risk: No action required Datetime: 10/21/2018 15:59 Time of Arrival: 10/21/2018 15:42 EGA: 35.3 Arrived By: Ambulatory Arrived From: Dr. Byrd Chief Complaint: pt. to ob triage from md office with referral form for pi lab work due to bp 156/ 85 @ office Movement: Present Contractions: Denies/Absent Rupture of Membranes: Denies Vaginal Bleeding: None Vaginal Discharge: Denies Recent Sexual Intercouse: Denies Abdominal Trauma: Not Applicable Patient Complaints: None Time Provider Notified: 10/21/2018 17:34 Provider Notified: Initial Plan: cbc, cmp, ua, uric acid Datetime: 09/14/2018 11:32 Labor Evaluation Frequency: 0 Monitor Mode: External Pattern: Normal: <= 5 Contractions in 10 Minutes Resting Tone [place]: Relaxed Datetime: 09/14/2018 10:51 Labor Evaluation Frequency: 0 Monitor Mode: External Pattern: Normal: <= 5 Contractions in 10 Minutes Resting Tone [place]: Relaxed Contraction Comments: NO UCS NOTED OR FELT BY PT Heart Rate FHR Baseline Rate: 140 Monitor Mode: External US Variability: Moderate 6-25 bpm Accelerations: 15X15 Decelerations: None Category: Category I Comments: NST REACTIVE, U/S REMOVED Datetime: 09/14/2018 10:00 Labor Evaluation Frequency: 0 Monitor Mode: External Pattern: Normal: <= 5 Contractions in 10 Minutes Resting Tone [place]: Relaxed Datetime: 09/14/2018 09:59 Comments: NST STARTED Datetime: 09/14/2018 09:00 Maternal Assessment Level of Consciousness: Fully Conscious Labor Evaluation Frequency: 0 Monitor Mode: External Datetime: 09/14/2018 08:03 Assessment Type: Ongoing Assessment Maternal Assessment Level of Consciousness: Fully Conscious Maternal Assessment Level of Consciousness: Fully Conscious DTR's/Clonus: No Clonus DTR's/Clonus: DTRs 2+; No Clonus Headache: Denies Headache: Denies Blurred Vision: No Blurred Vision: No Respiratory Effort: Unlabored; Regular Rhythm; Equal Expansion Breath Sounds, Left: Clear and Equal Breath Sounds, Right: Clear and Equal Nausea/Vomiting: Denies Nausea/Vomiting: Denies RUQ Epigastric Pain: Denies RUQ Epigastric Pain: Denies Lower Extremities Edema: None Upper Extremities Edema: None Facial Edema: None Fall Risk Assessment History of Falling: (0) No Secondary Diagnosis: (0) No Ambulatory Aid: (0) Bedrest/Nurse Assist IV Therapy: (0) No Gait: (0) Normal/Bedrest/Immobile Mental Status: (0) Oriented to Own Ability Fall Score: 0 Fall Risk Score Definition: No Risk: No action required Labor Evaluation Frequency: 0 Monitor Mode: External Comments: pt states positive movement Pain Presence: None/Denies Pain Type: N/A Datetime: 09/14/2018 07:00 Labor Evaluation Frequency: NONE Monitor Mode: External Pattern: Normal: <= 5 Contractions in 10 Minutes Resting Tone [place]: Relaxed Datetime: 09/14/2018 06:00 Labor Evaluation Frequency: NONE Monitor Mode: External Pattern: Normal: <= 5 Contractions in 10 Minutes Resting Tone [place]: Relaxed Datetime: 09/14/2018 05:00 Labor Evaluation Frequency: NONE Monitor Mode: External Pattern: Normal: <= 5 Contractions in 10 Minutes Resting Tone [place]: Relaxed Datetime: 09/14/2018 04:00 Labor Evaluation Frequency: NONE Monitor Mode: External Pattern: Normal: <= 5 Contractions in 10 Minutes Resting Tone [place]: Relaxed Datetime: 09/14/2018 03:00 Labor Evaluation Frequency: NONE Monitor Mode: External Pattern: Normal: <= 5 Contractions in 10 Minutes Resting Tone [place]: Relaxed Datetime: 09/14/2018 02:00 Labor Evaluation Frequency: NONE Monitor Mode: External Pattern: Normal: <= 5 Contractions in 10 Minutes Resting Tone [place]: Relaxed Datetime: 09/14/2018 01:00 Labor Evaluation Frequency: NONE Monitor Mode: External Pattern: Normal: <= 5 Contractions in 10 Minutes Resting Tone [place]: Relaxed Datetime: 09/14/2018 00:00 Labor Evaluation Frequency: NONE Monitor Mode: External Pattern: Normal: <= 5 Contractions in 10 Minutes Resting Tone [place]: Relaxed Datetime: 09/13/2018 23:00 Labor Evaluation Frequency: 1/HR Monitor Mode: External Duration (sec)2399: 50 Quality: Mild Pattern: Normal: <= 5 Contractions in 10 Minutes Resting Tone [place]: Relaxed Datetime: 09/13/2018 21:57 Labor Evaluation Frequency: NONE Monitor Mode: External Pattern: Normal: <= 5 Contractions in 10 Minutes Resting Tone [place]: Relaxed Heart Rate FHR Baseline Rate: 140 Monitor Mode: External US FHR Baseline Changes: No Baseline Change Variability: Moderate 6-25 bpm Accelerations: 15X15 Decelerations: None Category: Category I Comments: NST COMPLETED. FHR TRANSDUCER OFF. TOCO ONLY CONTINUED. Datetime: 09/13/2018 21:22 Assessment Type: Ongoing Assessment Maternal Assessment Level of Consciousness: Fully Conscious DTR's/Clonus: DTRs 2+; No Clonus Headache: Denies Blurred Vision: No Respiratory Effort: Unlabored; Regular Rhythm; Equal Expansion Nausea/Vomiting: Denies RUQ Epigastric Pain: Denies Lower Extremities Edema: None Degree: None Upper Extremities Edema: None Degree: None Facial Edema: None Fall Risk Assessment History of Falling: (0) No Secondary Diagnosis: (0) No Ambulatory Aid: (0) Bedrest/Nurse Assist IV Therapy: (0) No Gait: (0) Normal/Bedrest/Immobile Mental Status: (0) Oriented to Own Ability Fall Score: 0 Fall Risk Score Definition: No Risk: No action required Pain Presence: None/Denies Datetime: 09/13/2018 21:20 Comments: FHR TRANSDUCER APPLIED FOR NST. Datetime: 09/13/2018 21:00 Labor Evaluation Frequency: NONE Monitor Mode: External Pattern: Normal: <= 5 Contractions in 10 Minutes Resting Tone [place]: Relaxed Datetime: 09/13/2018 20:00 Labor Evaluation Frequency: NONE Monitor Mode: External Pattern: Normal: <= 5 Contractions in 10 Minutes Resting Tone [place]: Relaxed Datetime: 09/13/2018 18:30 Labor Evaluation Frequency: 0 Monitor Mode: External Pattern: Normal: <= 5 Contractions in 10 Minutes Resting Tone [place]: Relaxed Comments: REMOVED PER ORDER Pain Assessment Pain Scale: 0 Pain Presence: None/Denies Pain Type: N/A Pain Goal: 3 Pain Relief Measures: Comfort Measures Datetime: 09/13/2018 17:28 Labor Evaluation Frequency: 0 Monitor Mode: External Pattern: Normal: <= 5 Contractions in 10 Minutes Resting Tone [place]: Relaxed Comments: REMOVED PER ORDER Pain Assessment Pain Scale: 0 Pain Presence: None/Denies Pain Type: N/A Pain Goal: 3 Pain Relief Measures: Comfort Measures Datetime: 09/13/2018 16:30 Labor Evaluation Frequency: 0 Monitor Mode: External Pattern: Normal: <= 5 Contractions in 10 Minutes Resting Tone [place]: Relaxed Comments: REMOVED PER ORDER Pain Assessment Pain Scale: 0 Pain Presence: None/Denies Pain Type: N/A Pain Goal: 3 Pain Relief Measures: Comfort Measures Datetime: 09/13/2018 15:32 Labor Evaluation Frequency: 0 Monitor Mode: External Pattern: Normal: <= 5 Contractions in 10 Minutes Resting Tone [place]: Relaxed Comments: REMOVED PER ORDER Pain Assessment Pain Scale: 0 Pain Presence: None/Denies Pain Type: N/A Pain Goal: 3 Pain Relief Measures: Comfort Measures Datetime: 09/13/2018 14:31 Labor Evaluation Frequency: 0 Monitor Mode: External Pattern: Normal: <= 5 Contractions in 10 Minutes Resting Tone [place]: Relaxed Comments: REMOVED PER ORDER Pain Assessment Pain Scale: 0 Pain Presence: None/Denies Pain Type: N/A Pain Goal: 3 Pain Relief Measures: Comfort Measures Datetime: 09/13/2018 13:28 Labor Evaluation Frequency: 0 Monitor Mode: External Pattern: Normal: <= 5 Contractions in 10 Minutes Resting Tone [place]: Relaxed Comments: REMOVED PER ORDER Pain Assessment Pain Scale: 0 Pain Presence: None/Denies Pain Type: N/A Pain Goal: 3 Pain Relief Measures: Comfort Measures Datetime: 09/13/2018 12:29 Labor Evaluation Frequency: 0 Monitor Mode: External Pattern: Normal: <= 5 Contractions in 10 Minutes Resting Tone [place]: Relaxed Comments: REMOVED PER ORDER Pain Assessment Pain Scale: 0 Pain Presence: None/Denies Pain Type: N/A Pain Goal: 3 Pain Relief Measures: Comfort Measures Datetime: 09/13/2018 11:30 Labor Evaluation Frequency: 0 Monitor Mode: External Pattern: Normal: <= 5 Contractions in 10 Minutes Resting Tone [place]: Relaxed Comments: REMOVED PER ORDER Pain Assessment Pain Scale: 0 Pain Presence: None/Denies Pain Type: N/A Pain Goal: 3 Pain Relief Measures: Comfort Measures Datetime: 09/13/2018 10:30 Labor Evaluation Frequency: 0 Monitor Mode: External Heart Rate FHR Baseline Rate: 125 Monitor Mode: External US FHR Baseline Changes: No Baseline Change Variability: Moderate 6-25 bpm Accelerations: 15X15 Decelerations: None Category: Category I Datetime: 09/13/2018 09:56 Stage of : Antepartum Datetime: 09/13/2018 09:30 Labor Evaluation Frequency: 0 Monitor Mode: External Interventions: Side to Side Heart Rate FHR Baseline Rate: 125 Monitor Mode: External US FHR Baseline Changes: No Baseline Change Variability: Moderate 6-25 bpm Accelerations: 15X15 Decelerations: None Category: Category I Comments: NST REACTIVE Pain Assessment Pain Scale: 0 Pain Presence: None/Denies Pain Type: N/A Datetime: 09/13/2018 09:11 Comments: PT ON MONITOR FOR NST Q SHIFT Datetime: 09/13/2018 08:32 Assessment Type: Ongoing Assessment Maternal Assessment Level of Consciousness: Fully Conscious DTR's/Clonus: DTRs 2+; No Clonus Headache: Denies Blurred Vision: No Respiratory Effort: Unlabored; Regular Rhythm; Equal Expansion Breath Sounds, Left: Clear and Equal Breath Sounds, Right: Clear and Equal Nausea/Vomiting: Denies RUQ Epigastric Pain: Denies Lower Extremities Edema: Bilateral Lower Extremities Degree: None Upper Extremities Edema: Bilateral Upper Extremities Degree: None Facial Edema: None Fall Risk Assessment History of Falling: (0) No Secondary Diagnosis: (0) No Ambulatory Aid: (0) Bedrest/Nurse Assist IV Therapy: (0) No Gait: (0) Normal/Bedrest/Immobile Mental Status: (0) Oriented to Own Ability Fall Score: 0 Fall Risk Score Definition: No Risk: No action required Datetime: 09/13/2018 08:30 Labor Evaluation Frequency: 0 Monitor Mode: External Pain Assessment Pain Scale: 0 Pain Presence: None/Denies Pain Type: N/A Datetime: 09/13/2018 07:41 Stage of : Antepartum Datetime: 09/13/2018 06:51 Stage of : Antepartum Maternal Assessment Level of Consciousness: Fully Conscious Labor Evaluation Frequency: 0/hr Monitor Mode: External Pain Assessment Pain Scale: 0 Pain Presence: None/Denies Vaginal Bleeding: None Datetime: 09/13/2018 05:56 Stage of : Antepartum Maternal Assessment Level of Consciousness: Fully Conscious Temperature Route: Oral Labor Evaluation Frequency: 0/hr Monitor Mode: External Pain Assessment Pain Scale: 0 Pain Presence: None/Denies Vaginal Bleeding: None Datetime: 09/13/2018 04:45 Stage of : Antepartum Maternal Assessment Level of Consciousness: Fully Conscious Labor Evaluation Frequency: 0/hr Monitor Mode: External Pain Assessment Pain Scale: 0 Pain Presence: None/Denies Vaginal Bleeding: None Datetime: 09/13/2018 03:45 Stage of : Antepartum Maternal Assessment Level of Consciousness: Fully Conscious Labor Evaluation Frequency: 0/hr Monitor Mode: External Pain Assessment Pain Scale: 0 Pain Presence: None/Denies Pain Assessment Comments: Pt sleeping moved slightly when I entered room but did not open eyes. Vaginal Bleeding: None Datetime: 09/13/2018 02:50 Stage of : Antepartum Maternal Assessment Level of Consciousness: Fully Conscious Labor Evaluation Frequency: 0/hr Monitor Mode: External Pain Assessment Pain Scale: 0 Pain Presence: None/Denies Pain Assessment Comments: Pt sleeping, did not awaken when entering room. Pt on right lateral side . Breathing unlabored, even bilateral. Vaginal Bleeding: None Datetime: 09/13/2018 01:47 Stage of : Antepartum Maternal Assessment Level of Consciousness: Fully Conscious Headache: Denies Nausea/Vomiting: Denies RUQ Epigastric Pain: Denies Labor Evaluation Frequency: 0/hr Monitor Mode: External Pain Assessment Pain Scale: 0 Pain Presence: None/Denies Vaginal Bleeding: None Datetime: 09/13/2018 00:50 Stage of : Antepartum Maternal Assessment Level of Consciousness: Fully Conscious Headache: Denies Nausea/Vomiting: Denies RUQ Epigastric Pain: Denies Labor Evaluation Frequency: 0/hr Monitor Mode: External Pain Assessment Pain Scale: 0 Pain Presence: None/Denies Vaginal Bleeding: None Datetime: 09/12/2018 23:50 Stage of : Antepartum Maternal Assessment Level of Consciousness: Fully Conscious DTR's/Clonus: DTRs 2+; No Clonus Headache: Denies Breath Sounds, Left: Clear and Equal Breath Sounds, Right: Clear and Equal Nausea/Vomiting: Denies RUQ Epigastric Pain: Denies Labor Evaluation Frequency: 0/hr Monitor Mode: External Comments: EFM off Pain Assessment Pain Scale: 0 Pain Presence: None/Denies Vaginal Bleeding: None Datetime: 09/12/2018 22:50 Stage of : Antepartum Maternal Assessment Level of Consciousness: Fully Conscious DTR's/Clonus: DTRs 2+; No Clonus Headache: Denies Breath Sounds, Left: Clear and Equal Breath Sounds, Right: Clear and Equal Nausea/Vomiting: Denies RUQ Epigastric Pain: Denies Labor Evaluation Frequency: 0/hr Monitor Mode: External Heart Rate FHR Baseline Rate: 125 Monitor Mode: External US FHR Baseline Changes: No Baseline Change Variability: Moderate 6-25 bpm Accelerations: 15X15 Pain Assessment Pain Scale: 0 Pain Presence: None/Denies Vaginal Bleeding: None Datetime: 09/12/2018 21:30 Stage of : Antepartum Maternal Assessment Level of Consciousness: Fully Conscious DTR's/Clonus: DTRs 2+; No Clonus Headache: Denies Breath Sounds, Left: Clear and Equal Breath Sounds, Right: Clear and Equal Nausea/Vomiting: Denies RUQ Epigastric Pain: Denies Labor Evaluation Frequency: 0/hr Monitor Mode: External Heart Rate FHR Baseline Rate: 125 Monitor Mode: External US FHR Baseline Changes: No Baseline Change Variability: Moderate 6-25 bpm Accelerations: 15X15 Category: Category I Comments: EFM on for NST Pain Assessment Pain Scale: 0 Pain Presence: None/Denies Vaginal Bleeding: None Datetime: 09/12/2018 20:30 Stage of : Antepartum Maternal Assessment Level of Consciousness: Fully Conscious DTR's/Clonus: DTRs 2+; No Clonus Headache: Denies Breath Sounds, Left: Clear and Equal Breath Sounds, Right: Clear and Equal Nausea/Vomiting: Denies RUQ Epigastric Pain: Denies Labor Evaluation Frequency: 0/hr Monitor Mode: External Pain Assessment Pain Scale: 0 Pain Presence: None/Denies Vaginal Bleeding: None Datetime: 09/12/2018 19:29 Stage of : Antepartum Assessment Type: Ongoing Assessment Maternal Assessment Level of Consciousness: Fully Conscious DTR's/Clonus: DTRs 2+; No Clonus Headache: Denies Blurred Vision: No Respiratory Effort: Unlabored; Regular Rhythm; Equal Expansion Breath Sounds, Left: Clear and Equal Breath Sounds, Right: Clear and Equal Nausea/Vomiting: Denies RUQ Epigastric Pain: Denies Lower Extremities Edema: None Degree: None Upper Extremities Edema: None Degree: None Facial Edema: None Temperature Route: Oral Fall Risk Assessment History of Falling: (0) No Secondary Diagnosis: (0) No Ambulatory Aid: (0) Bedrest/Nurse Assist IV Therapy: (0) No Gait: (0) Normal/Bedrest/Immobile Mental Status: (0) Oriented to Own Ability Fall Score: 0 Fall Risk Score Definition: No Risk: No action required Labor Evaluation Frequency: 0/hr Monitor Mode: External Pain Assessment Pain Scale: 0 Pain Presence: None/Denies Vaginal Bleeding: None Datetime: 09/12/2018 18:41 Pain Presence: None/Denies Datetime: 09/12/2018 18:00 Stage of : Antepartum Maternal Assessment Level of Consciousness: Fully Conscious Headache: Denies Nausea/Vomiting: Denies RUQ Epigastric Pain: Denies Labor Evaluation Frequency: 0/hr Monitor Mode: External Pain Assessment Pain Scale: 0 Pain Presence: None/Denies Vaginal Bleeding: None Datetime: 09/12/2018 17:00 Stage of : Antepartum Maternal Assessment Level of Consciousness: Fully Conscious Headache: Denies Nausea/Vomiting: Denies RUQ Epigastric Pain: Denies Labor Evaluation Frequency: 0/hr Monitor Mode: External Pain Assessment Pain Scale: 0 Pain Presence: None/Denies Vaginal Bleeding: None Datetime: 09/12/2018 16:49 Stage of : Antepartum Maternal Assessment Level of Consciousness: Fully Conscious Headache: Denies Nausea/Vomiting: Denies RUQ Epigastric Pain: Denies Resting Tone [place]: Relaxed Pain Assessment Pain Scale: 0 Pain Presence: None/Denies Vaginal Bleeding: None Datetime: 09/12/2018 16:48 Maternal Assessment Level of Consciousness: Fully Conscious Headache: Denies Blurred Vision: No Respiratory Effort: Unlabored Nausea/Vomiting: Denies Pain Presence: None/Denies Datetime: 09/12/2018 16:16 Stage of : Antepartum Maternal Assessment Level of Consciousness: Fully Conscious Headache: Denies Nausea/Vomiting: Denies RUQ Epigastric Pain: Denies Labor Evaluation Frequency: 0/hr Monitor Mode: External Pain Assessment Pain Scale: 0 Pain Presence: None/Denies Vaginal Bleeding: None Datetime: 09/12/2018 15:40 Respiratory Effort: Unlabored Datetime: 09/12/2018 15:00 Stage of : Antepartum Maternal Assessment Level of Consciousness: Fully Conscious Headache: Denies Nausea/Vomiting: Denies RUQ Epigastric Pain: Denies Labor Evaluation Frequency: 0/hr Monitor Mode: External Pain Assessment Pain Scale: 0 Pain Presence: None/Denies Vaginal Bleeding: None Datetime: 09/12/2018 13:46 Maternal Assessment Level of Consciousness: Fully Conscious Headache: Denies Blurred Vision: No Respiratory Effort: Unlabored Nausea/Vomiting: Denies RUQ Epigastric Pain: Denies Pain Presence: None/Denies Datetime: 09/12/2018 13:27 Stage of : Antepartum Maternal Assessment Level of Consciousness: Fully Conscious Headache: Denies Nausea/Vomiting: Denies RUQ Epigastric Pain: Denies Labor Evaluation Frequency: 0/hr Monitor Mode: External Pain Assessment Pain Scale: 0 Pain Presence: None/Denies Pain Type: N/A Datetime: 09/12/2018 12:38 Stage of : Antepartum Maternal Assessment Level of Consciousness: Fully Conscious Headache: Denies Nausea/Vomiting: Denies RUQ Epigastric Pain: Denies Labor Evaluation Frequency: 0/hr Monitor Mode: External Pain Assessment Pain Scale: 0 Pain Presence: None/Denies Pain Type: N/A Datetime: 09/12/2018 11:26 Stage of : Antepartum Maternal Assessment Level of Consciousness: Fully Conscious Headache: Denies Nausea/Vomiting: Denies RUQ Epigastric Pain: Denies Labor Evaluation Frequency: pt. denies uc's or cramping Monitor Mode: External Comments: fht's approp. for ega 29.6 Pain Assessment Pain Scale: 0 Pain Presence: None/Denies Pain Type: N/A Vaginal Exam Exam By: 0 Datetime: 09/12/2018 11:09 Labor Evaluation Frequency: 0/hr Monitor Mode: External Heart Rate FHR Baseline Rate: 140 Monitor Mode: External US Variability: Moderate 6-25 bpm Accelerations: 15X15 Decelerations: None Datetime: 09/12/2018 10:30 Labor Evaluation Frequency: 0/hr Monitor Mode: External Heart Rate FHR Baseline Rate: 145 Monitor Mode: External US Variability: Moderate 6-25 bpm Accelerations: 15X15 Decelerations: None Datetime: 09/12/2018 10:21 Monitor Mode: External Resting Tone [place]: Relaxed Monitor Mode: External US Pain Presence: None/Denies Datetime: 09/12/2018 09:33 Stage of : Antepartum Maternal Assessment Level of Consciousness: Fully Conscious Headache: Denies Nausea/Vomiting: Denies RUQ Epigastric Pain: Denies Resting Tone [place]: Relaxed Pain Assessment Pain Scale: 0 Pain Presence: None/Denies Vaginal Bleeding: None Datetime: 09/12/2018 08:15 Stage of : Antepartum Maternal Assessment Level of Consciousness: Fully Conscious Headache: Denies Nausea/Vomiting: Denies RUQ Epigastric Pain: Denies Temperature Route: Oral Resting Tone [place]: Relaxed Comments: ega 29.6 pt. acknowledgesfetal movements Pain Assessment Pain Scale: 0 Pain Presence: None/Denies Vaginal Bleeding: None Datetime: 09/12/2018 08:13 Maternal Assessment Level of Consciousness: Fully Conscious Headache: Denies Blurred Vision: No Respiratory Effort: Unlabored Nausea/Vomiting: Denies RUQ Epigastric Pain: Denies Pain Presence: None/Denies Datetime: 09/12/2018 07:17 Maternal Assessment Level of Consciousness: Fully Conscious Headache: Denies Blurred Vision: No Respiratory Effort: Unlabored Nausea/Vomiting: Denies RUQ Epigastric Pain: Denies Pain Presence: None/Denies Datetime: 09/12/2018 07:00 Stage of : Antepartum Labor Evaluation Frequency: NONE Monitor Mode: External Resting Tone [place]: Relaxed Pain Presence: None/Denies Pain Type: N/A Datetime: 09/12/2018 06:00 Labor Evaluation Frequency: NONE Monitor Mode: External Resting Tone [place]: Relaxed Pain Presence: None/Denies Pain Type: N/A Datetime: 09/12/2018 05:24 Stage of : Antepartum Temperature Route: Oral Contraction Comments: PT DENIES CRAMPNG Comments: PT STATES + FM Pain Presence: None/Denies Pain Type: N/A Membrane Status: Intact Vaginal Bleeding: None Datetime: 09/12/2018 05:00 Labor Evaluation Frequency: NONE Monitor Mode: External Resting Tone [place]: Relaxed Pain Presence: None/Denies Pain Type: N/A Pain Assessment Comments: PT SLEEPING BUT EASILY AROUSED Datetime: 09/12/2018 04:00 Labor Evaluation Frequency: NONE Monitor Mode: External Resting Tone [place]: Relaxed Pain Presence: None/Denies Pain Type: N/A Pain Assessment Comments: PT SLEEPING WITH EVEN UNLABORED BREATHING Datetime: 09/12/2018 03:00 Labor Evaluation Frequency: NONE Monitor Mode: External Resting Tone [place]: Relaxed Pain Presence: None/Denies Pain Type: N/A Pain Assessment Comments: PT SLEEPING WITH EVEN UNLABORED BREATHING Datetime: 09/12/2018 02:00 Labor Evaluation Frequency: NONE Monitor Mode: External Resting Tone [place]: Relaxed Pain Presence: None/Denies Pain Type: N/A Pain Assessment Comments: PT SLEEPING WITH EVEN UNLABORED BREATHING Datetime: 09/12/2018 01:00 Labor Evaluation Frequency: NONE Monitor Mode: External Resting Tone [place]: Relaxed Pain Presence: None/Denies Pain Type: N/A Datetime: 09/12/2018 00:00 Labor Evaluation Frequency: none Monitor Mode: External Resting Tone [place]: Relaxed Datetime: 09/11/2018 23:50 Stage of : Antepartum Datetime: 09/11/2018 23:00 Labor Evaluation Frequency: NONE Monitor Mode: External Resting Tone [place]: Relaxed Datetime: 09/11/2018 22:07 Labor Evaluation Frequency: NONE Monitor Mode: External Resting Tone [place]: Relaxed Heart Rate FHR Baseline Rate: 125 Monitor Mode: External US Variability: Moderate 6-25 bpm Accelerations: 15X15 Decelerations: None Category: Category I Pain Presence: None/Denies Pain Type: N/A Datetime: 09/11/2018 21:18 Stage of : Antepartum Datetime: 09/11/2018 21:00 Labor Evaluation Frequency: NONE Monitor Mode: External Resting Tone [place]: Relaxed Pain Presence: None/Denies Pain Type: N/A Datetime: 09/11/2018 20:09 Stage of : Antepartum Assessment Type: Ongoing Assessment Maternal Assessment Level of Consciousness: Fully Conscious DTR's/Clonus: DTRs 2+; No Clonus Headache: Denies Blurred Vision: No Respiratory Effort: Unlabored; Regular Rhythm; Equal Expansion Breath Sounds, Left: Clear and Equal Breath Sounds, Right: Clear and Equal Nausea/Vomiting: Denies RUQ Epigastric Pain: Denies Lower Extremities Edema: None Degree: None Upper Extremities Edema: None Degree: None Facial Edema: None Temperature Route: Oral Fall Risk Assessment History of Falling: (0) No Secondary Diagnosis: (0) No Ambulatory Aid: (0) Bedrest/Nurse Assist IV Therapy: (0) No Gait: (0) Normal/Bedrest/Immobile Mental Status: (0) Oriented to Own Ability Fall Score: 0 Fall Risk Score Definition: No Risk: No action required Monitor Mode: External Contraction Comments: PT STATES + FM Comments: PT STATES + FM Pain Presence: None/Denies Pain Type: N/A Membrane Status: Intact Vaginal Bleeding: None Datetime: 09/11/2018 20:00 Labor Evaluation Frequency: NONE Monitor Mode: External Resting Tone [place]: Relaxed Pain Presence: None/Denies Pain Type: N/A Datetime: 09/11/2018 18:00 Stage of : Antepartum Pain Assessment Pain Scale: 0 Pain Presence: None/Denies Pain Type: N/A Datetime: 09/11/2018 17:00 Stage of : Antepartum Pain Assessment Pain Scale: 0 Pain Presence: None/Denies Pain Type: N/A Datetime: 09/11/2018 16:40 Stage of : Antepartum Temperature Route: Oral Pain Assessment Pain Scale: 0 Pain Presence: None/Denies Pain Type: N/A Datetime: 09/11/2018 16:00 Stage of : Antepartum Pain Assessment Pain Scale: 0 Pain Presence: None/Denies Pain Type: N/A Datetime: 09/11/2018 15:00 Stage of : Antepartum Pain Assessment Pain Scale: 0 Pain Presence: None/Denies Pain Type: N/A Datetime: 09/11/2018 14:00 Stage of : Antepartum Pain Assessment Pain Scale: 0 Pain Presence: None/Denies Pain Type: N/A Datetime: 09/11/2018 13:00 Stage of : Antepartum Pain Assessment Pain Scale: 0 Pain Presence: None/Denies Pain Type: N/A Datetime: 09/11/2018 12:08 Stage of : Antepartum Datetime: 09/11/2018 12:05 Stage of : Antepartum Temperature Route: Oral Datetime: 09/11/2018 12:00 Stage of : Antepartum Pain Assessment Pain Scale: 0 Pain Presence: None/Denies Pain Type: N/A Datetime: 09/11/2018 11:22 Labor Evaluation Frequency: 0 Monitor Mode: External Resting Tone [place]: Relaxed Heart Rate FHR Baseline Rate: 135 Monitor Mode: External US FHR Baseline Changes: No Baseline Change Variability: Moderate 6-25 bpm Accelerations: 15X15 Decelerations: None Category: Category I Pain Assessment Pain Scale: 0 Pain Presence: None/Denies Pain Type: N/A Datetime: 09/11/2018 11:00 Stage of : Antepartum Pain Assessment Pain Scale: 0 Pain Presence: None/Denies Pain Type: N/A Datetime: 09/11/2018 10:56 Monitor Mode: External Monitor Mode: External US Comments: nst started Datetime: 09/11/2018 10:00 Stage of : Antepartum Pain Assessment Pain Scale: 0 Pain Presence: None/Denies Pain Type: N/A Datetime: 09/11/2018 09:14 Stage of : Antepartum Temperature Route: Oral Datetime: 09/11/2018 09:00 Stage of : Antepartum Labor Evaluation Frequency: none Monitor Mode: External Resting Tone [place]: Relaxed Datetime: 09/11/2018 08:45 Assessment Type: Ongoing Assessment Maternal Assessment Level of Consciousness: Fully Conscious DTR's/Clonus: DTRs 2+; No Clonus Headache: Denies Blurred Vision: No Respiratory Effort: Unlabored; Regular Rhythm; Equal Expansion Breath Sounds, Left: Clear and Equal Breath Sounds, Right: Clear and Equal Nausea/Vomiting: Denies RUQ Epigastric Pain: Denies Lower Extremities Edema: None Degree: None Upper Extremities Edema: None Degree: None Facial Edema: None Fall Risk Assessment History of Falling: (0) No Secondary Diagnosis: (0) No Ambulatory Aid: (0) Bedrest/Nurse Assist IV Therapy: (0) No Gait: (0) Normal/Bedrest/Immobile Mental Status: (0) Oriented to Own Ability Fall Score: 0 Fall Risk Score Definition: No Risk: No action required Datetime: 09/11/2018 08:00 Stage of : Antepartum Labor Evaluation Frequency: none Monitor Mode: External Resting Tone [place]: Relaxed Datetime: 09/11/2018 07:28 Stage of : Antepartum Datetime: 09/11/2018 07:00 Labor Evaluation Frequency: none Monitor Mode: External Resting Tone [place]: Relaxed Datetime: 09/11/2018 05:00 Labor Evaluation Frequency: none Monitor Mode: External Resting Tone [place]: Relaxed Datetime: 09/11/2018 04:00 Labor Evaluation Frequency: none Monitor Mode: External Resting Tone [place]: Relaxed Datetime: 09/11/2018 03:00 Labor Evaluation Frequency: none Monitor Mode: External Resting Tone [place]: Relaxed Datetime: 09/11/2018 02:00 Labor Evaluation Frequency: none Monitor Mode: External Resting Tone [place]: Relaxed Datetime: 09/11/2018 01:00 Labor Evaluation Frequency: none Monitor Mode: External Resting Tone [place]: Relaxed Datetime: 09/11/2018 00:31 Stage of : Antepartum Temperature Route: Oral Pain Assessment Pain Scale: 0 Pain Presence: None/Denies Pain Goal: 0 Datetime: 09/11/2018 00:00 Labor Evaluation Frequency: none Monitor Mode: External Resting Tone [place]: Relaxed Datetime: 09/10/2018 23:00 Labor Evaluation Frequency: none Monitor Mode: External Resting Tone [place]: Relaxed Datetime: 09/10/2018 22:28 Labor Evaluation Frequency: none Monitor Mode: External Resting Tone [place]: Relaxed Heart Rate FHR Baseline Rate: 135 Monitor Mode: External US FHR Baseline Changes: No Baseline Change Variability: Moderate 6-25 bpm Accelerations: 15X15 Decelerations: None Category: Category I Comments: NST reactive and reassuring. +FM noted per mom. EFM off. Datetime: 09/10/2018 22:00 Labor Evaluation Frequency: none Monitor Mode: External Resting Tone [place]: Relaxed Heart Rate FHR Baseline Rate: 140 Monitor Mode: External US FHR Baseline Changes: No Baseline Change Variability: Moderate 6-25 bpm Accelerations: 15X15 Decelerations: None Category: Category I Datetime: 09/10/2018 21:54 Comments: EFM on. +FM noted. Datetime: 09/10/2018 21:00 Labor Evaluation Frequency: none Monitor Mode: External Resting Tone [place]: Relaxed Datetime: 09/10/2018 20:38 Stage of : Antepartum Assessment Type: Ongoing Assessment Maternal Assessment Level of Consciousness: Fully Conscious DTR's/Clonus: DTRs 2+; No Clonus Headache: Denies Blurred Vision: No Respiratory Effort: Unlabored; Regular Rhythm; Equal Expansion Breath Sounds, Left: Clear and Equal Breath Sounds, Right: Clear and Equal Nausea/Vomiting: Denies RUQ Epigastric Pain: Denies Lower Extremities Edema: None Degree: None Upper Extremities Edema: None Degree: None Facial Edema: None Temperature Route: Oral Fall Risk Assessment History of Falling: (0) No Secondary Diagnosis: (0) No Ambulatory Aid: (0) Bedrest/Nurse Assist IV Therapy: (0) No Gait: (0) Normal/Bedrest/Immobile Mental Status: (0) Oriented to Own Ability Fall Score: 0 Fall Risk Score Definition: No Risk: No action required Pain Assessment Pain Scale: 0 Pain Presence: None/Denies Pain Goal: 0 Datetime: 09/10/2018 20:00 Labor Evaluation Frequency: none Monitor Mode: External Resting Tone [place]: Relaxed Datetime: 09/10/2018 17:06 Labor Evaluation Frequency: 0 Monitor Mode: External Datetime: 09/10/2018 17:04 Stage of : Antepartum Temperature Route: Oral Pain Assessment Pain Scale: 0 Pain Presence: None/Denies Pain Goal: 0 Datetime: 09/10/2018 17:00 Stage of : Antepartum Datetime: 09/10/2018 16:30 Labor Evaluation Frequency: 0 Monitor Mode: External Datetime: 09/10/2018 15:30 Labor Evaluation Frequency: 0 Monitor Mode: External Datetime: 09/10/2018 14:30 Labor Evaluation Frequency: 0 Monitor Mode: External Datetime: 09/10/2018 13:30 Labor Evaluation Frequency: 0 Monitor Mode: External Datetime: 09/10/2018 12:30 Stage of : Antepartum Labor Evaluation Frequency: 0 Monitor Mode: External Monitor Mode: PER PT BABY MOVING Datetime: 09/10/2018 11:38 Labor Evaluation Frequency: 0 Monitor Mode: External Datetime: 09/10/2018 11:35 Stage of : Antepartum Datetime: 09/10/2018 11:33 Stage of : Antepartum Datetime: 09/10/2018 10:30 Labor Evaluation Frequency: 0 Monitor Mode: External Datetime: 09/10/2018 09:30 Labor Evaluation Frequency: 0 Monitor Mode: External Datetime: 09/10/2018 08:30 Monitor Mode: External Pattern: Normal: <= 5 Contractions in 10 Minutes Resting Tone [place]: Relaxed Heart Rate FHR Baseline Rate: 130 Monitor Mode: External US FHR Baseline Changes: No Baseline Change Variability: Moderate 6-25 bpm Accelerations: 10X10 Decelerations: None Category: Category I Datetime: 09/10/2018 07:50 Labor Evaluation Frequency: 0 (Annotations: NONE PALPATED) Monitor Mode: External Resting Tone [place]: Relaxed Heart Rate FHR Baseline Rate: 135 Monitor Mode: External US FHR Baseline Changes: No Baseline Change Variability: Moderate 6-25 bpm Accelerations: 10X10 Decelerations: None Category: Category I Datetime: 09/10/2018 07:48 Stage of : Antepartum Temperature Route: Oral Pain Assessment Pain Scale: 0 Pain Presence: None/Denies Pain Goal: 0 Datetime: 09/10/2018 07:31 Stage of : Antepartum Datetime: 09/10/2018 06:10 Labor Evaluation Frequency: 0 Monitor Mode: External Resting Tone [place]: Relaxed Pain Presence: None/Denies Datetime: 09/10/2018 05:10 Labor Evaluation Frequency: 0 Monitor Mode: External Duration (sec)2399: DENIES Resting Tone [place]: Relaxed Pain Presence: None/Denies Datetime: 09/10/2018 04:10 Labor Evaluation Frequency: 0 Monitor Mode: External Resting Tone [place]: Relaxed Datetime: 09/10/2018 03:10 Labor Evaluation Frequency: 0 Monitor Mode: External Duration (sec)2399: denies Resting Tone [place]: Relaxed Datetime: 09/10/2018 02:10 Labor Evaluation Frequency: 0 Monitor Mode: External Resting Tone [place]: Relaxed Datetime: 09/10/2018 01:10 Labor Evaluation Frequency: 0 Monitor Mode: External Resting Tone [place]: Relaxed Pain Presence: None/Denies Datetime: 09/10/2018 00:10 Labor Evaluation Frequency: 0 Monitor Mode: External Resting Tone [place]: Relaxed Pain Presence: None/Denies Datetime: 09/09/2018 23:10 Labor Evaluation Frequency: 0 Monitor Mode: External Duration (sec)2399: denies Resting Tone [place]: Relaxed Pain Presence: None/Denies Datetime: 09/09/2018 22:13 Labor Evaluation Frequency: 0 Monitor Mode: External Resting Tone [place]: Relaxed Heart Rate FHR Baseline Rate: 135 Monitor Mode: External US Variability: Moderate 6-25 bpm Accelerations: 15X15 Decelerations: None Category: Category I Comments: nst done. Pain Presence: None/Denies Datetime: 09/09/2018 21:33 Monitor Mode: External US Comments: placed nst started. Datetime: 09/09/2018 21:00 Labor Evaluation Frequency: 0 Monitor Mode: External Duration (sec)2399: denies Resting Tone [place]: Relaxed Pain Presence: None/Denies Datetime: 09/09/2018 20:00 Labor Evaluation Frequency: 0 Monitor Mode: External Duration (sec)2399: denies Resting Tone [place]: Relaxed Pain Presence: None/Denies Datetime: 09/09/2018 19:43 Stage of : Antepartum Assessment Type: Ongoing Assessment Maternal Assessment Level of Consciousness: Fully Conscious DTR's/Clonus: DTRs 2+; No Clonus Headache: Denies Blurred Vision: No Respiratory Effort: Unlabored; Regular Rhythm; Equal Expansion Breath Sounds, Left: Clear and Equal Breath Sounds, Right: Clear and Equal Nausea/Vomiting: Denies RUQ Epigastric Pain: Denies Lower Extremities Edema: None Degree: None Upper Extremities Edema: None Degree: None Facial Edema: None Temperature Route: Oral Fall Risk Assessment History of Falling: (0) No Secondary Diagnosis: (0) No Ambulatory Aid: (0) Bedrest/Nurse Assist IV Therapy: (0) No Gait: (0) Normal/Bedrest/Immobile Mental Status: (0) Oriented to Own Ability Fall Score: 0 Fall Risk Score Definition: No Risk: No action required Pain Presence: None/Denies Datetime: 09/09/2018 19:00 Monitor Mode: External Datetime: 09/09/2018 18:00 Labor Evaluation Frequency: 0 Monitor Mode: External Pain Assessment Pain Scale: 0 Pain Presence: None/Denies Pain Type: N/A Pain Goal: 0 Datetime: 09/09/2018 17:00 Labor Evaluation Frequency: 0 Monitor Mode: External Pain Assessment Pain Scale: 0 Pain Presence: None/Denies Pain Type: N/A Pain Goal: 0 Datetime: 09/09/2018 16:00 Labor Evaluation Frequency: 0 Monitor Mode: External Pain Assessment Pain Scale: 0 Pain Presence: None/Denies Pain Type: N/A Pain Goal: 0 Datetime: 09/09/2018 15:00 Labor Evaluation Frequency: 0 Monitor Mode: External Pain Assessment Pain Scale: 0 Pain Presence: None/Denies Pain Type: N/A Pain Goal: 0 Membrane Status: Intact Datetime: 09/09/2018 14:00 Labor Evaluation Frequency: 0 Monitor Mode: External Pain Assessment Pain Scale: 0 Pain Presence: None/Denies Pain Type: N/A Pain Goal: 0 Datetime: 09/09/2018 13:00 Labor Evaluation Frequency: 0 Monitor Mode: External Pain Assessment Pain Scale: 0 Pain Presence: None/Denies Pain Type: N/A Pain Goal: 0 Datetime: 09/09/2018 12:07 Labor Evaluation Frequency: 0 Monitor Mode: External Pain Assessment Pain Scale: 0 Pain Presence: None/Denies Pain Type: N/A Pain Goal: 0 Datetime: 09/09/2018 11:00 Labor Evaluation Frequency: 0 Monitor Mode: External Pain Assessment Pain Scale: 0 Pain Presence: None/Denies Pain Type: N/A Pain Goal: 0 Datetime: 09/09/2018 10:27 Labor Evaluation Frequency: 0 Monitor Mode: External Heart Rate FHR Baseline Rate: 130 Monitor Mode: External US FHR Baseline Changes: No Baseline Change Variability: Moderate 6-25 bpm Accelerations: 15X15 Decelerations: None Category: Category I Pain Assessment Pain Scale: 0 Pain Presence: None/Denies Pain Type: N/A Pain Goal: 0 Datetime: 09/09/2018 09:39 Labor Evaluation Frequency: 0 Monitor Mode: External Pain Assessment Pain Scale: 0 Pain Presence: None/Denies Pain Type: N/A Pain Goal: 0 Membrane Status: Intact Datetime: 09/09/2018 08:47 Labor Evaluation Frequency: 0 Monitor Mode: External Pain Assessment Pain Scale: 0 Pain Presence: None/Denies Pain Type: N/A Pain Goal: 0 Membrane Status: Intact Datetime: 09/09/2018 08:00 Assessment Type: Ongoing Assessment Maternal Assessment Level of Consciousness: Fully Conscious DTR's/Clonus: DTRs 2+; No Clonus Headache: Denies Blurred Vision: No Respiratory Effort: Unlabored; Regular Rhythm; Equal Expansion Nausea/Vomiting: Denies RUQ Epigastric Pain: Denies Lower Extremities Edema: None Degree: None Upper Extremities Edema: None Degree: None Facial Edema: None Fall Risk Assessment History of Falling: (0) No Secondary Diagnosis: (0) No Ambulatory Aid: (0) Bedrest/Nurse Assist IV Therapy: (0) No Gait: (0) Normal/Bedrest/Immobile Mental Status: (0) Oriented to Own Ability Fall Score: 0 Fall Risk Score Definition: No Risk: No action required Labor Evaluation Frequency: 0 Monitor Mode: External Pain Assessment Pain Scale: 0 Pain Presence: None/Denies Pain Type: N/A Pain Goal: 0 Membrane Status: Intact Datetime: 09/09/2018 06:57 Labor Evaluation Frequency: NONE Monitor Mode: External Resting Tone [place]: Relaxed Comments: PT STATES + FM Datetime: 09/09/2018 06:00 Monitor Mode: Internal Resting Tone [place]: Relaxed Pain Presence: None/Denies Pain Type: N/A Datetime: 09/09/2018 04:58 Labor Evaluation Frequency: NONE Monitor Mode: External Resting Tone [place]: Relaxed Datetime: 09/09/2018 04:00 Labor Evaluation Frequency: NONE Monitor Mode: External Resting Tone [place]: Relaxed Pain Presence: None/Denies Pain Type: N/A Datetime: 09/09/2018 03:45 Stage of : Antepartum Temperature Route: Oral Pain Presence: None/Denies Pain Type: N/A Datetime: 09/09/2018 03:00 Labor Evaluation Frequency: NONE Monitor Mode: External Resting Tone [place]: Relaxed Pain Presence: None/Denies Pain Type: N/A Datetime: 09/09/2018 02:00 Labor Evaluation Frequency: NONE Monitor Mode: External Resting Tone [place]: Relaxed Pain Presence: None/Denies Pain Type: N/A Datetime: 09/09/2018 00:59 Labor Evaluation Frequency: NONE Monitor Mode: External Resting Tone [place]: Relaxed Pain Presence: None/Denies Pain Type: N/A Datetime: 09/09/2018 00:00 Labor Evaluation Frequency: NONE Monitor Mode: External Resting Tone [place]: Relaxed Pain Presence: None/Denies Pain Type: N/A Datetime: 09/08/2018 23:18 Stage of : Antepartum Temperature Route: Oral Datetime: 09/08/2018 23:15 Labor Evaluation Frequency: NONE Monitor Mode: External Resting Tone [place]: Relaxed Heart Rate FHR Baseline Rate: 130 Monitor Mode: External US Variability: Moderate 6-25 bpm Accelerations: 15X15 Decelerations: None Category: Category I Pain Presence: None/Denies Pain Type: N/A Datetime: 09/08/2018 21:55 Monitor Mode: External US Comments: APPLIED FOR NST Datetime: 09/08/2018 21:51 Labor Evaluation Frequency: NONE Monitor Mode: External Resting Tone [place]: Relaxed Pain Presence: None/Denies Pain Type: N/A Datetime: 09/08/2018 21:00 Labor Evaluation Frequency: NONE Monitor Mode: External Resting Tone [place]: Relaxed Pain Presence: None/Denies Pain Type: N/A Datetime: 09/08/2018 20:00 Labor Evaluation Frequency: NONE Monitor Mode: External Resting Tone [place]: Relaxed Datetime: 09/08/2018 19:33 Stage of : Antepartum Assessment Type: Ongoing Assessment Maternal Assessment Level of Consciousness: Fully Conscious DTR's/Clonus: DTRs 2+; No Clonus Headache: Denies Blurred Vision: No Respiratory Effort: Unlabored; Regular Rhythm; Equal Expansion Breath Sounds, Left: Clear and Equal Breath Sounds, Right: Clear and Equal Nausea/Vomiting: Denies RUQ Epigastric Pain: Denies Lower Extremities Edema: None Degree: None Upper Extremities Edema: None Degree: None Facial Edema: None Temperature Route: Oral Fall Risk Assessment History of Falling: (0) No Secondary Diagnosis: (0) No Ambulatory Aid: (0) Bedrest/Nurse Assist IV Therapy: (0) No Gait: (0) Normal/Bedrest/Immobile Mental Status: (0) Oriented to Own Ability Fall Score: 0 Fall Risk Score Definition: No Risk: No action required Monitor Mode: External Contraction Comments: PT DENIES CRAMPING Comments: PT STATES + FM Pain Presence: None/Denies Pain Type: N/A Membrane Status: Intact Vaginal Bleeding: None Datetime: 09/08/2018 18:07 Stage of : Antepartum Maternal Assessment Level of Consciousness: Fully Conscious Headache: Denies Nausea/Vomiting: Denies RUQ Epigastric Pain: Denies Resting Tone [place]: Relaxed Pain Assessment Pain Scale: 0 Pain Presence: None/Denies Vaginal Bleeding: None Datetime: 09/08/2018 17:57 Maternal Assessment Level of Consciousness: Fully Conscious Headache: Denies Blurred Vision: No Respiratory Effort: Unlabored Nausea/Vomiting: Denies RUQ Epigastric Pain: Denies Resting Tone [place]: Relaxed Pain Presence: None/Denies Datetime: 09/08/2018 16:02 Stage of : Antepartum Maternal Assessment Level of Consciousness: Fully Conscious Headache: Denies Nausea/Vomiting: Denies RUQ Epigastric Pain: Denies Resting Tone [place]: Relaxed Pain Assessment Pain Scale: 0 Pain Presence: None/Denies Vaginal Bleeding: None Datetime: 09/08/2018 15:14 Stage of : Antepartum Maternal Assessment Level of Consciousness: Fully Conscious Headache: Denies Nausea/Vomiting: Denies RUQ Epigastric Pain: Denies Resting Tone [place]: Relaxed Pain Assessment Pain Scale: 0 Pain Presence: None/Denies Vaginal Bleeding: None Datetime: 09/08/2018 14:00 Stage of : Antepartum Maternal Assessment Level of Consciousness: Fully Conscious Headache: Denies Nausea/Vomiting: Denies RUQ Epigastric Pain: Denies Resting Tone [place]: Relaxed Pain Assessment Pain Scale: 0 Pain Presence: None/Denies Vaginal Bleeding: None Datetime: 09/08/2018 13:15 Stage of : Antepartum Maternal Assessment Level of Consciousness: Fully Conscious Headache: Denies Nausea/Vomiting: Denies RUQ Epigastric Pain: Denies Resting Tone [place]: Relaxed Pain Assessment Pain Scale: 0 Pain Presence: None/Denies Vaginal Bleeding: None Datetime: 09/08/2018 12:32 Labor Evaluation Frequency: 0 Monitor Mode: External Resting Tone [place]: Relaxed Pain Presence: None/Denies Datetime: 09/08/2018 11:17 Stage of : Antepartum Maternal Assessment Level of Consciousness: Fully Conscious Headache: Denies Nausea/Vomiting: Denies RUQ Epigastric Pain: Denies Resting Tone [place]: Relaxed Pain Assessment Pain Scale: 0 Pain Presence: None/Denies Vaginal Bleeding: None Datetime: 09/08/2018 11:00 Stage of : Antepartum Maternal Assessment Level of Consciousness: Fully Conscious Headache: Denies Nausea/Vomiting: Denies RUQ Epigastric Pain: Denies Resting Tone [place]: Relaxed Pain Assessment Pain Scale: 0 Pain Presence: None/Denies Vaginal Bleeding: None Datetime: 09/08/2018 10:00 Stage of : Antepartum Maternal Assessment Level of Consciousness: Fully Conscious Headache: Denies Nausea/Vomiting: Denies RUQ Epigastric Pain: Denies Resting Tone [place]: Relaxed Pain Assessment Pain Scale: 0 Pain Presence: None/Denies Vaginal Bleeding: None Datetime: 09/08/2018 09:52 Labor Evaluation Frequency: 0/hr Monitor Mode: External Resting Tone [place]: Relaxed Heart Rate FHR Baseline Rate: 140 Monitor Mode: External US Variability: Moderate 6-25 bpm Comments: fht's approp. for ega of 29.2 Datetime: 09/08/2018 09:26 Maternal Assessment Level of Consciousness: Fully Conscious Headache: Denies Blurred Vision: No Respiratory Effort: Unlabored Nausea/Vomiting: Denies RUQ Epigastric Pain: Denies Monitor Mode: External Resting Tone [place]: Relaxed Monitor Mode: External US Comments: nst q shift. pt. reports movement Pain Presence: None/Denies Datetime: 09/08/2018 08:00 Stage of : Antepartum Maternal Assessment Level of Consciousness: Fully Conscious Headache: Denies Nausea/Vomiting: Denies RUQ Epigastric Pain: Denies Temperature Route: Oral Resting Tone [place]: Relaxed Pain Assessment Pain Scale: 0 Pain Presence: None/Denies Membrane Status: Intact (Annotations: pt. denies leaking or srom) Vaginal Bleeding: None (Annotations: pt. denies) Datetime: 09/08/2018 07:24 Assessment Type: Ongoing Assessment Datetime: 09/08/2018 07:06 Stage of : Antepartum Resting Tone [place]: Relaxed Contraction Comments: pt. denies any S_S of ptl Pain Presence: None/Denies Datetime: 09/08/2018 07:00 Labor Evaluation Frequency: 0 Monitor Mode: External Datetime: 09/08/2018 06:00 Labor Evaluation Frequency: 0 Monitor Mode: External Datetime: 09/08/2018 05:00 Labor Evaluation Frequency: 0 Monitor Mode: External Datetime: 09/08/2018 04:00 Labor Evaluation Frequency: 0 Monitor Mode: External Datetime: 09/08/2018 03:00 Labor Evaluation Frequency: 0 Monitor Mode: External Datetime: 09/08/2018 02:00 Labor Evaluation Frequency: 0 Monitor Mode: External Datetime: 09/08/2018 01:00 Labor Evaluation Frequency: 0 Monitor Mode: External Datetime: 09/08/2018 00:00 Labor Evaluation Frequency: 0 Monitor Mode: External Datetime: 09/07/2018 23:27 Temperature Route: Oral Pain Assessment Pain Scale: 0 Datetime: 09/07/2018 23:00 Labor Evaluation Frequency: 0 Monitor Mode: External Datetime: 09/07/2018 22:00 Labor Evaluation Frequency: 0 Monitor Mode: External Datetime: 09/07/2018 21:00 Labor Evaluation Frequency: 0 Monitor Mode: External Datetime: 09/07/2018 20:29 Contraction Comments: TOCO ONLY NOW Datetime: 09/07/2018 20:28 Labor Evaluation Frequency: 0 Monitor Mode: External Heart Rate FHR Baseline Rate: 130 Monitor Mode: External US FHR Baseline Changes: No Baseline Change Variability: Moderate 6-25 bpm Accelerations: 15X15 Decelerations: None Category: Category I Datetime: 09/07/2018 19:50 Assessment Type: Ongoing Assessment Maternal Assessment Level of Consciousness: Fully Conscious Headache: Denies Blurred Vision: No Respiratory Effort: Unlabored; Regular Rhythm; Equal Expansion Nausea/Vomiting: Denies RUQ Epigastric Pain: Denies Lower Extremities Edema: None Upper Extremities Edema: None Facial Edema: None Fall Risk Assessment History of Falling: (0) No Secondary Diagnosis: (0) No Ambulatory Aid: (0) Bedrest/Nurse Assist IV Therapy: (0) No Gait: (0) Normal/Bedrest/Immobile Mental Status: (0) Oriented to Own Ability Fall Score: 0 Fall Risk Score Definition: No Risk: No action required Comments: NST STARTED Datetime: 09/07/2018 19:47 Temperature Route: Oral Pain Assessment Pain Scale: 0 Pain Presence: None/Denies Datetime: 09/07/2018 18:00 Stage of : Antepartum Labor Evaluation Frequency: 0 Monitor Mode: External Resting Tone [place]: Relaxed Datetime: 09/07/2018 17:02 Stage of : Antepartum Labor Evaluation Frequency: 0 Monitor Mode: External Resting Tone [place]: Relaxed Datetime: 09/07/2018 16:39 Headache: Denies Blurred Vision: No Nausea/Vomiting: Denies RUQ Epigastric Pain: Denies Pain Presence: None/Denies Datetime: 09/07/2018 16:00 Stage of : Antepartum Labor Evaluation Frequency: 0 Monitor Mode: External Resting Tone [place]: Relaxed Datetime: 09/07/2018 15:39 Stage of : Antepartum Maternal Assessment Level of Consciousness: Fully Conscious Headache: Denies Blurred Vision: No Nausea/Vomiting: Denies RUQ Epigastric Pain: Denies Labor Evaluation Frequency: 0 Monitor Mode: External Resting Tone [place]: Relaxed Contraction Comments: pt. denies any S_S of ptl Pain Presence: None/Denies Membrane Status: Intact Vaginal Bleeding: None Datetime: 09/07/2018 15:00 Stage of : Antepartum Labor Evaluation Frequency: 0 Monitor Mode: External Pattern: Normal: <= 5 Contractions in 10 Minutes Resting Tone [place]: Relaxed Datetime: 09/07/2018 14:35 Stage of : Antepartum Datetime: 09/07/2018 14:00 Stage of : Antepartum Labor Evaluation Frequency: 0 Monitor Mode: External Pattern: Normal: <= 5 Contractions in 10 Minutes Resting Tone [place]: Relaxed Datetime: 09/07/2018 13:00 Stage of : Antepartum Labor Evaluation Frequency: 0 Monitor Mode: External Pattern: Normal: <= 5 Contractions in 10 Minutes Resting Tone [place]: Relaxed Datetime: 09/07/2018 12:05 Stage of : Antepartum Temperature Route: Oral Pain Assessment Pain Scale: 0 Pain Presence: None/Denies Pain Type: N/A Datetime: 09/07/2018 12:00 Stage of : Antepartum Labor Evaluation Frequency: 0 Monitor Mode: External Pattern: Normal: <= 5 Contractions in 10 Minutes Resting Tone [place]: Relaxed Datetime: 09/07/2018 11:00 Stage of : Antepartum Labor Evaluation Frequency: 0 Monitor Mode: External Pattern: Normal: <= 5 Contractions in 10 Minutes Resting Tone [place]: Relaxed Datetime: 09/07/2018 10:00 Stage of : Antepartum Labor Evaluation Frequency: 0 Monitor Mode: External Pattern: Normal: <= 5 Contractions in 10 Minutes Resting Tone [place]: Relaxed Datetime: 09/07/2018 09:00 Stage of : Antepartum Labor Evaluation Frequency: 0 Monitor Mode: External Pattern: Normal: <= 5 Contractions in 10 Minutes Resting Tone [place]: Relaxed Datetime: 09/07/2018 08:31 Stage of : Antepartum Labor Evaluation Frequency: 0 Monitor Mode: External Pattern: Normal: <= 5 Contractions in 10 Minutes Resting Tone [place]: Relaxed Heart Rate FHR Baseline Rate: 125 Monitor Mode: External US FHR Baseline Changes: No Baseline Change Variability: Moderate 6-25 bpm Accelerations: 10X10 Decelerations: None Datetime: 09/07/2018 08:08 Monitor Mode: External US Comments: NST started Datetime: 09/07/2018 08:06 Stage of : Antepartum Temperature Route: Oral Pain Assessment Pain Scale: 0 Pain Presence: None/Denies Pain Type: N/A Datetime: 09/07/2018 08:00 Stage of : Antepartum Assessment Type: Ongoing Assessment Maternal Assessment Level of Consciousness: Fully Conscious DTR's/Clonus: DTRs 2+; No Clonus Headache: Denies Blurred Vision: No Respiratory Effort: Unlabored; Regular Rhythm; Equal Expansion Breath Sounds, Left: Clear and Equal Breath Sounds, Right: Clear and Equal Nausea/Vomiting: Denies RUQ Epigastric Pain: Denies Lower Extremities Edema: None Degree: None Upper Extremities Edema: None Degree: None Facial Edema: None Fall Risk Assessment History of Falling: (0) No Secondary Diagnosis: (0) No Ambulatory Aid: (0) Bedrest/Nurse Assist IV Therapy: (0) No Gait: (0) Normal/Bedrest/Immobile Mental Status: (0) Oriented to Own Ability Fall Score: 0 Fall Risk Score Definition: No Risk: No action required Labor Evaluation Frequency: none Monitor Mode: External Resting Tone [place]: Relaxed Pain Assessment Pain Scale: 0 Pain Presence: None/Denies Pain Type: N/A Datetime: 09/07/2018 07:21 Stage of : Antepartum Datetime: 09/07/2018 07:00 Labor Evaluation Frequency: none Monitor Mode: External Resting Tone [place]: Relaxed Datetime: 09/07/2018 06:00 Labor Evaluation Frequency: none Monitor Mode: External Resting Tone [place]: Relaxed Datetime: 09/07/2018 05:00 Labor Evaluation Frequency: none Monitor Mode: External Resting Tone [place]: Relaxed Datetime: 09/07/2018 04:05 Stage of : Antepartum Temperature Route: Oral Pain Assessment Pain Scale: 0 Pain Presence: None/Denies Pain Goal: 0 Datetime: 09/07/2018 04:00 Labor Evaluation Frequency: none Monitor Mode: External Resting Tone [place]: Relaxed Datetime: 09/07/2018 03:00 Labor Evaluation Frequency: none Monitor Mode: External Resting Tone [place]: Relaxed Contraction Comments: time forward Datetime: 09/07/2018 01:59 Labor Evaluation Frequency: none Monitor Mode: External Resting Tone [place]: Relaxed Datetime: 09/07/2018 01:00 Labor Evaluation Frequency: none Monitor Mode: External Resting Tone [place]: Relaxed Datetime: 09/07/2018 00:00 Labor Evaluation Frequency: none Monitor Mode: External Resting Tone [place]: Relaxed Datetime: 09/06/2018 23:35 Stage of : Antepartum Temperature Route: Oral Pain Assessment Pain Scale: 0 Pain Presence: None/Denies Pain Goal: 0 Datetime: 09/06/2018 23:00 Labor Evaluation Frequency: none Monitor Mode: External Resting Tone [place]: Relaxed Datetime: 09/06/2018 22:00 Labor Evaluation Frequency: none Monitor Mode: External Resting Tone [place]: Relaxed Datetime: 09/06/2018 21:00 Labor Evaluation Frequency: none Monitor Mode: External Resting Tone [place]: Relaxed Datetime: 09/06/2018 20:18 Labor Evaluation Frequency: none Monitor Mode: External Resting Tone [place]: Relaxed Heart Rate FHR Baseline Rate: 140 Monitor Mode: External US FHR Baseline Changes: No Baseline Change Variability: Moderate 6-25 bpm Accelerations: 15X15 Decelerations: Variable Category: Category II Comments: NST reactive and reassuring. +FM per mom Datetime: 09/06/2018 20:00 Labor Evaluation Frequency: none Monitor Mode: External Resting Tone [place]: Relaxed Heart Rate FHR Baseline Rate: 140 Monitor Mode: External US FHR Baseline Changes: No Baseline Change Variability: Moderate 6-25 bpm Accelerations: 15X15 Decelerations: Variable Category: Category II Comments: NST continues. Datetime: 09/06/2018 19:53 Comments: EFM on. +FM noted per mom. Datetime: 09/06/2018 19:44 Stage of : Antepartum Assessment Type: Ongoing Assessment Maternal Assessment Level of Consciousness: Fully Conscious DTR's/Clonus: DTRs 2+; No Clonus Headache: Denies Blurred Vision: No Respiratory Effort: Unlabored; Regular Rhythm; Equal Expansion Breath Sounds, Left: Clear and Equal Breath Sounds, Right: Clear and Equal Nausea/Vomiting: Denies RUQ Epigastric Pain: Denies Lower Extremities Edema: None Degree: None Upper Extremities Edema: None Degree: None Facial Edema: None Temperature Route: Oral Fall Risk Assessment History of Falling: (0) No Secondary Diagnosis: (0) No Ambulatory Aid: (0) Bedrest/Nurse Assist IV Therapy: (0) No Gait: (0) Normal/Bedrest/Immobile Mental Status: (0) Oriented to Own Ability Fall Score: 0 Fall Risk Score Definition: No Risk: No action required Pain Assessment Pain Scale: 0 Pain Presence: None/Denies Pain Goal: 0 Datetime: 09/06/2018 18:07 Labor Evaluation Frequency: 0 Monitor Mode: External Monitor Mode: PT MOVING PER PT Datetime: 09/06/2018 17:00 Monitor Mode: External Datetime: 09/06/2018 16:59 Stage of : Antepartum Temperature Route: Oral Pain Assessment Pain Scale: 0 Pain Presence: None/Denies Pain Goal: 0 Datetime: 09/06/2018 16:00 Labor Evaluation Frequency: 0 Monitor Mode: External Monitor Mode: FELT FM PER PT Datetime: 09/06/2018 15:00 Labor Evaluation Frequency: 0 Monitor Mode: External Datetime: 09/06/2018 14:21 Labor Evaluation Frequency: 0 Monitor Mode: External Datetime: 09/06/2018 13:46 Stage of : Antepartum Temperature Route: Oral Pain Assessment Pain Scale: 0 Pain Presence: None/Denies Pain Goal: 0 Datetime: 09/06/2018 13:45 Stage of : Antepartum Pain Assessment Pain Scale: 0 Pain Presence: None/Denies Pain Goal: 0 Datetime: 09/06/2018 13:00 Labor Evaluation Frequency: 0 Monitor Mode: External Datetime: 09/06/2018 11:50 Labor Evaluation Frequency: 0 Monitor Mode: External Pattern: Normal: <= 5 Contractions in 10 Minutes Resting Tone [place]: Relaxed Heart Rate FHR Baseline Rate: 140 Monitor Mode: External US FHR Baseline Changes: No Baseline Change Variability: Moderate 6-25 bpm Accelerations: 10X10 Decelerations: None Category: Category I Datetime: 09/06/2018 11:45 Stage of : Antepartum Datetime: 09/06/2018 11:00 Labor Evaluation Frequency: 0 Monitor Mode: External Datetime: 09/06/2018 10:00 Stage of : Antepartum Labor Evaluation Frequency: 0 Monitor Mode: External Datetime: 09/06/2018 09:12 Assessment Type: Ongoing Assessment Maternal Assessment Level of Consciousness: Fully Conscious DTR's/Clonus: DTRs 2+; No Clonus Headache: Denies Blurred Vision: No Respiratory Effort: Unlabored; Regular Rhythm; Equal Expansion Breath Sounds, Left: Clear and Equal Breath Sounds, Right: Clear and Equal Nausea/Vomiting: Denies RUQ Epigastric Pain: Denies Lower Extremities Edema: None Degree: None Upper Extremities Edema: None Degree: None Facial Edema: None Temperature Route: Oral Fall Risk Assessment History of Falling: (0) No Secondary Diagnosis: (0) No Ambulatory Aid: (0) Bedrest/Nurse Assist IV Therapy: (0) No Gait: (0) Normal/Bedrest/Immobile Mental Status: (0) Oriented to Own Ability Fall Score: 0 Fall Risk Score Definition: No Risk: No action required Pain Assessment Pain Scale: 0 Pain Presence: None/Denies Pain Goal: 0 Datetime: 09/06/2018 09:10 Stage of : Antepartum Datetime: 09/06/2018 09:00 Monitor Mode: External (Annotations: NONE PALPATED) Monitor Mode: External US Datetime: 09/06/2018 08:02 Labor Evaluation Frequency: 0 Monitor Mode: External Datetime: 09/06/2018 07:20 Stage of : Antepartum Datetime: 09/06/2018 07:00 Monitor Mode: External Datetime: 09/06/2018 06:00 Labor Evaluation Frequency: 0 Monitor Mode: External Datetime: 09/06/2018 05:00 Labor Evaluation Frequency: 0 Monitor Mode: External Datetime: 09/06/2018 04:00 Labor Evaluation Frequency: 0 Monitor Mode: External Datetime: 09/06/2018 03:00 Labor Evaluation Frequency: 0 Monitor Mode: External Datetime: 09/06/2018 02:00 Labor Evaluation Frequency: 0 Monitor Mode: External Datetime: 09/06/2018 01:00 Labor Evaluation Frequency: 0 Monitor Mode: External Datetime: 09/06/2018 00:00 Labor Evaluation Frequency: X1 Monitor Mode: External Duration (sec)2399: 60 Quality: Mild Datetime: 09/05/2018 23:28 Temperature Route: Oral Pain Assessment Pain Scale: 0 Pain Presence: None/Denies Datetime: 09/05/2018 23:00 Labor Evaluation Frequency: 0 Monitor Mode: External Datetime: 09/05/2018 22:24 Comments: toco only now Datetime: 09/05/2018 22:23 Labor Evaluation Frequency: 0 Monitor Mode: External Heart Rate FHR Baseline Rate: 130 Monitor Mode: External US FHR Baseline Changes: No Baseline Change Variability: Moderate 6-25 bpm Accelerations: 15X15 Decelerations: None Category: Category I Datetime: 09/05/2018 21:41 Comments: NST STARTED Datetime: 09/05/2018 21:00 Labor Evaluation Frequency: 0 Monitor Mode: External Datetime: 09/05/2018 20:00 Labor Evaluation Frequency: 0 Monitor Mode: External Datetime: 09/05/2018 19:30 Assessment Type: Ongoing Assessment Maternal Assessment Level of Consciousness: Fully Conscious Headache: Denies Blurred Vision: No Respiratory Effort: Unlabored; Regular Rhythm; Equal Expansion Nausea/Vomiting: Denies RUQ Epigastric Pain: Denies Lower Extremities Edema: None Upper Extremities Edema: None Facial Edema: None Fall Risk Assessment History of Falling: (0) No Secondary Diagnosis: (0) No Ambulatory Aid: (0) Bedrest/Nurse Assist IV Therapy: (0) No Gait: (0) Normal/Bedrest/Immobile Mental Status: (0) Oriented to Own Ability Fall Score: 0 Fall Risk Score Definition: No Risk: No action required Datetime: 09/05/2018 19:27 Temperature Route: Oral Pain Assessment Pain Scale: 0 Pain Presence: None/Denies Datetime: 09/05/2018 18:30 Stage of : Antepartum Labor Evaluation Frequency: 0 Monitor Mode: External Resting Tone [place]: Relaxed Datetime: 09/05/2018 17:30 Stage of : Antepartum Labor Evaluation Frequency: 0 Monitor Mode: External Resting Tone [place]: Relaxed Datetime: 09/05/2018 16:30 Stage of : Antepartum Labor Evaluation Frequency: 0 Monitor Mode: External Resting Tone [place]: Relaxed Datetime: 09/05/2018 15:41 Stage of : Antepartum Temperature Route: Oral Datetime: 09/05/2018 15:30 Stage of : Antepartum Labor Evaluation Frequency: 0 Monitor Mode: External Resting Tone [place]: Relaxed Datetime: 09/05/2018 14:43 Labor Evaluation Frequency: 0 Monitor Mode: External Contraction Comments: DENIES FELING CONTRACTIONS Monitor Mode: External US Comments: NST COMPLETED Pain Assessment Pain Scale: 0 Pain Presence: None/Denies Pain Type: N/A Pain Goal: 0 Datetime: 09/05/2018 14:30 Stage of : Antepartum Labor Evaluation Frequency: 0 Monitor Mode: External Resting Tone [place]: Relaxed Datetime: 09/05/2018 14:14 Monitor Mode: External Monitor Mode: External US Comments: NST started Datetime: 09/05/2018 13:30 Stage of : Antepartum Labor Evaluation Frequency: 0 Monitor Mode: External Resting Tone [place]: Relaxed Datetime: 09/05/2018 12:30 Stage of : Antepartum Labor Evaluation Frequency: 0 Monitor Mode: External Resting Tone [place]: Relaxed Datetime: 09/05/2018 11:46 Stage of : Antepartum Temperature Route: Oral Pain Assessment Pain Scale: 0 Pain Presence: None/Denies Pain Type: N/A Datetime: 09/05/2018 11:30 Stage of : Antepartum Labor Evaluation Frequency: 0 Monitor Mode: External Resting Tone [place]: Relaxed Datetime: 09/05/2018 10:30 Stage of : Antepartum Labor Evaluation Frequency: 0 Monitor Mode: External Resting Tone [place]: Relaxed Datetime: 09/05/2018 09:30 Stage of : Antepartum Labor Evaluation Frequency: 0 Monitor Mode: External Resting Tone [place]: Relaxed Datetime: 09/05/2018 08:30 Stage of : Antepartum Labor Evaluation Frequency: 0 Monitor Mode: External Resting Tone [place]: Relaxed Datetime: 09/05/2018 07:43 Stage of : Antepartum Assessment Type: Ongoing Assessment Maternal Assessment Level of Consciousness: Fully Conscious DTR's/Clonus: DTRs 2+; No Clonus Headache: Denies Blurred Vision: No Respiratory Effort: Unlabored; Regular Rhythm; Equal Expansion Breath Sounds, Left: Clear and Equal Breath Sounds, Right: Clear and Equal Nausea/Vomiting: Denies RUQ Epigastric Pain: Denies Lower Extremities Edema: None Degree: None Upper Extremities Edema: None Degree: None Facial Edema: None Temperature Route: Oral Fall Risk Assessment History of Falling: (0) No Secondary Diagnosis: (0) No Ambulatory Aid: (0) Bedrest/Nurse Assist IV Therapy: (0) No Gait: (0) Normal/Bedrest/Immobile Mental Status: (0) Oriented to Own Ability Fall Score: 0 Fall Risk Score Definition: No Risk: No action required Pain Assessment Pain Scale: 0 Pain Presence: None/Denies Pain Type: N/A Datetime: 09/05/2018 07:30 Labor Evaluation Frequency: 0 Monitor Mode: External Resting Tone [place]: Relaxed Datetime: 09/05/2018 06:20 Labor Evaluation Frequency: 0 Monitor Mode: External Duration (sec)2399: DENIES Resting Tone [place]: Relaxed Pain Presence: None/Denies Datetime: 09/05/2018 05:20 Labor Evaluation Frequency: 0 Monitor Mode: External Duration (sec)2399: DENIES Resting Tone [place]: Relaxed Pain Presence: None/Denies Datetime: 09/05/2018 04:20 Labor Evaluation Frequency: 0 Monitor Mode: External Resting Tone [place]: Relaxed Datetime: 09/05/2018 03:20 Labor Evaluation Frequency: 0 Monitor Mode: External Resting Tone [place]: Relaxed Datetime: 09/05/2018 02:20 Labor Evaluation Frequency: 0 Monitor Mode: External Resting Tone [place]: Relaxed Datetime: 09/05/2018 01:20 Labor Evaluation Frequency: 0 Monitor Mode: External Duration (sec)2399: DENIES Resting Tone [place]: Relaxed Pain Presence: None/Denies Datetime: 09/05/2018 00:20 Labor Evaluation Frequency: 0 Monitor Mode: External Resting Tone [place]: Relaxed Pain Presence: None/Denies Datetime: 09/04/2018 23:22 Labor Evaluation Frequency: 0 Monitor Mode: External Resting Tone [place]: Relaxed Heart Rate FHR Baseline Rate: 140 Monitor Mode: External US Variability: Moderate 6-25 bpm Accelerations: 15X15 Decelerations: None Category: Category I Comments: NST DONE. Pain Presence: None/Denies Datetime: 09/04/2018 22:50 Labor Evaluation Frequency: 0 Monitor Mode: External Duration (sec)2399: DENIES Resting Tone [place]: Relaxed Monitor Mode: External US Comments: PLACED NST STARTED. Pain Presence: None/Denies Datetime: 09/04/2018 22:00 Labor Evaluation Frequency: 0 Monitor Mode: External Duration (sec)2399: DENIES Resting Tone [place]: Relaxed Pain Presence: None/Denies Datetime: 09/04/2018 21:00 Labor Evaluation Frequency: 0 Monitor Mode: External Duration (sec)2399: DENIES Resting Tone [place]: Relaxed Pain Presence: None/Denies Datetime: 09/04/2018 20:00 Labor Evaluation Frequency: 0 Monitor Mode: External Duration (sec)2399: DENIES Resting Tone [place]: Relaxed Pain Presence: None/Denies Datetime: 09/04/2018 19:21 Stage of : Antepartum Assessment Type: Ongoing Assessment Maternal Assessment Level of Consciousness: Fully Conscious DTR's/Clonus: DTRs 2+; No Clonus Headache: Denies Blurred Vision: No Respiratory Effort: Unlabored; Regular Rhythm; Equal Expansion Breath Sounds, Left: Clear and Equal Breath Sounds, Right: Clear and Equal Nausea/Vomiting: Denies RUQ Epigastric Pain: Denies Lower Extremities Edema: None Degree: None Upper Extremities Edema: None Degree: None Facial Edema: None Temperature Route: Oral Fall Risk Assessment History of Falling: (0) No Secondary Diagnosis: (0) No Ambulatory Aid: (0) Bedrest/Nurse Assist IV Therapy: (0) No Gait: (0) Normal/Bedrest/Immobile Mental Status: (0) Oriented to Own Ability Fall Score: 0 Fall Risk Score Definition: No Risk: No action required Pain Presence: None/Denies Membrane Status: Intact Datetime: 09/04/2018 19:00 Comments: ASSUMED CARE OF PT. Datetime: 09/04/2018 18:52 Labor Evaluation Frequency: 0 Monitor Mode: External Datetime: 09/04/2018 17:58 Labor Evaluation Frequency: 0 Monitor Mode: External Datetime: 09/04/2018 17:57 Labor Evaluation Frequency: 0 Monitor Mode: External Datetime: 09/04/2018 17:00 Labor Evaluation Frequency: 0 Monitor Mode: External Datetime: 09/04/2018 16:10 Stage of : Antepartum Temperature Route: Oral Pain Assessment Pain Scale: 0 Pain Presence: None/Denies Pain Goal: 0 Datetime: 09/04/2018 16:00 Labor Evaluation Frequency: 0 Monitor Mode: External Datetime: 09/04/2018 14:56 Labor Evaluation Frequency: 0 Monitor Mode: External Datetime: 09/04/2018 13:00 Monitor Mode: PT SITTIN BY THE WINDOW,MONITOR OFF Datetime: 09/04/2018 12:00 Labor Evaluation Frequency: 0 Monitor Mode: External Datetime: 09/04/2018 11:00 Labor Evaluation Frequency: 0 Monitor Mode: External Datetime: 09/04/2018 10:19 Labor Evaluation Frequency: 0 Monitor Mode: External Datetime: 09/04/2018 10:16 Stage of : Antepartum Datetime: 09/04/2018 09:00 Labor Evaluation Frequency: 0 Monitor Mode: External Datetime: 09/04/2018 08:12 Labor Evaluation Frequency: 0 Monitor Mode: External Resting Tone [place]: Relaxed Heart Rate FHR Baseline Rate: 140 Monitor Mode: External US FHR Baseline Changes: No Baseline Change Variability: Moderate 6-25 bpm Accelerations: 10X10 Decelerations: None Category: Category I Datetime: 09/04/2018 08:09 Assessment Type: Ongoing Assessment Maternal Assessment Level of Consciousness: Fully Conscious DTR's/Clonus: DTRs 2+; No Clonus Headache: Denies Blurred Vision: No Respiratory Effort: Unlabored; Regular Rhythm; Equal Expansion Breath Sounds, Left: Clear and Equal Breath Sounds, Right: Clear and Equal Nausea/Vomiting: Denies RUQ Epigastric Pain: Denies Lower Extremities Edema: None Degree: None Upper Extremities Edema: None Degree: None Facial Edema: None Fall Risk Assessment History of Falling: (0) No Secondary Diagnosis: (0) No Ambulatory Aid: (0) Bedrest/Nurse Assist IV Therapy: (0) No Gait: (0) Normal/Bedrest/Immobile Mental Status: (0) Oriented to Own Ability Fall Score: 0 Fall Risk Score Definition: No Risk: No action required Datetime: 09/04/2018 08:07 Stage of : Antepartum Datetime: 09/04/2018 08:01 Stage of : Antepartum Datetime: 09/04/2018 07:00 Labor Evaluation Frequency: NONE Monitor Mode: External Resting Tone [place]: Relaxed Pain Presence: None/Denies Pain Type: N/A Datetime: 09/04/2018 06:26 Stage of : Antepartum Temperature Route: Oral Monitor Mode: External Contraction Comments: PT DENIES CRAMPING Comments: PT STATES + FM Pain Presence: None/Denies Pain Type: N/A Membrane Status: Intact Vaginal Bleeding: None Datetime: 09/04/2018 06:00 Labor Evaluation Frequency: NNONE Monitor Mode: External Resting Tone [place]: Relaxed Pain Presence: None/Denies Pain Type: N/A Pain Assessment Comments: PT SLEEPING BUT EASILY AROUSED Datetime: 09/04/2018 04:00 Labor Evaluation Frequency: NONE Monitor Mode: External Resting Tone [place]: Relaxed Pain Presence: None/Denies Pain Type: N/A Datetime: 09/04/2018 03:00 Labor Evaluation Frequency: NONE Monitor Mode: External Resting Tone [place]: Relaxed Pain Presence: None/Denies Pain Type: N/A Datetime: 09/04/2018 02:00 Labor Evaluation Frequency: NONE Resting Tone [place]: Relaxed Pain Presence: None/Denies Pain Type: N/A Datetime: 09/04/2018 01:00 Labor Evaluation Frequency: NONE Monitor Mode: External Resting Tone [place]: Relaxed Pain Presence: None/Denies Pain Type: N/A Datetime: 09/04/2018 00:00 Labor Evaluation Frequency: NONE Monitor Mode: External Resting Tone [place]: Relaxed Pain Presence: None/Denies Pain Type: N/A Datetime: 09/03/2018 22:49 Labor Evaluation Frequency: NONE Monitor Mode: External Resting Tone [place]: Relaxed Heart Rate FHR Baseline Rate: 135 Monitor Mode: External US Variability: Moderate 6-25 bpm Accelerations: 15X15 Decelerations: None Category: Category I Pain Presence: None/Denies Pain Type: N/A Datetime: 09/03/2018 21:33 Monitor Mode: External US Comments: APPLIED FOR NST Datetime: 09/03/2018 21:00 Labor Evaluation Frequency: NONE Monitor Mode: External Resting Tone [place]: Relaxed Pain Presence: None/Denies Pain Type: N/A Datetime: 09/03/2018 20:57 Stage of : Antepartum Datetime: 09/03/2018 20:00 Labor Evaluation Frequency: NONE Monitor Mode: External Resting Tone [place]: Relaxed Pain Presence: None/Denies Pain Type: N/A Datetime: 09/03/2018 19:31 Stage of : Antepartum Datetime: 09/03/2018 19:15 Stage of : Antepartum Assessment Type: Ongoing Assessment Maternal Assessment Level of Consciousness: Fully Conscious DTR's/Clonus: DTRs 2+; No Clonus Headache: Denies Blurred Vision: No Respiratory Effort: Unlabored; Regular Rhythm; Equal Expansion Breath Sounds, Left: Clear and Equal Breath Sounds, Right: Clear and Equal Nausea/Vomiting: Denies RUQ Epigastric Pain: Denies Lower Extremities Edema: None Degree: None Upper Extremities Edema: None Degree: None Facial Edema: None Temperature Route: Oral Fall Risk Assessment History of Falling: (0) No Secondary Diagnosis: (0) No Ambulatory Aid: (0) Bedrest/Nurse Assist IV Therapy: (0) No Gait: (0) Normal/Bedrest/Immobile Mental Status: (0) Oriented to Own Ability Fall Score: 0 Fall Risk Score Definition: No Risk: No action required Monitor Mode: External Contraction Comments: PT STATES + FM Monitor Mode: External US Comments: PT STATES + FM Pain Presence: None/Denies Pain Type: N/A Membrane Status: Intact Vaginal Bleeding: None Datetime: 09/03/2018 19:00 Labor Evaluation Frequency: IRRITABILIT NOTED Monitor Mode: External Pattern: Normal: <= 5 Contractions in 10 Minutes Resting Tone [place]: Relaxed Datetime: 09/03/2018 18:00 Labor Evaluation Frequency: X1 Monitor Mode: External Duration (sec)2399: 70-80 Quality: Mild Pattern: Normal: <= 5 Contractions in 10 Minutes Resting Tone [place]: Relaxed Datetime: 09/03/2018 17:00 Labor Evaluation Frequency: NONE Monitor Mode: External Pattern: Normal: <= 5 Contractions in 10 Minutes Resting Tone [place]: Relaxed Datetime: 09/03/2018 16:18 Temperature Route: Oral Datetime: 09/03/2018 16:00 Labor Evaluation Frequency: NONE Monitor Mode: External Pattern: Normal: <= 5 Contractions in 10 Minutes Resting Tone [place]: Relaxed Datetime: 09/03/2018 15:00 Labor Evaluation Frequency: NONE Monitor Mode: External Pattern: Normal: <= 5 Contractions in 10 Minutes Resting Tone [place]: Relaxed Datetime: 09/03/2018 14:00 Labor Evaluation Frequency: NONE Monitor Mode: External Pattern: Normal: <= 5 Contractions in 10 Minutes Resting Tone [place]: Relaxed Datetime: 09/03/2018 13:00 Labor Evaluation Frequency: NONE Monitor Mode: External Pattern: Normal: <= 5 Contractions in 10 Minutes Resting Tone [place]: Relaxed Datetime: 09/03/2018 12:00 Labor Evaluation Frequency: NONE Monitor Mode: External Pattern: Normal: <= 5 Contractions in 10 Minutes Resting Tone [place]: Relaxed Datetime: 09/03/2018 11:49 Labor Evaluation Frequency: NONE Monitor Mode: External Pattern: Normal: <= 5 Contractions in 10 Minutes Resting Tone [place]: Relaxed Heart Rate FHR Baseline Rate: 145 Monitor Mode: External US FHR Baseline Changes: No Baseline Change Variability: Moderate 6-25 bpm Accelerations: 15X15 Decelerations: None Category: Category I Datetime: 09/03/2018 11:28 Monitor Mode: External Monitor Mode: External US Datetime: 09/03/2018 11:00 Labor Evaluation Frequency: NONE Monitor Mode: External Pattern: Normal: <= 5 Contractions in 10 Minutes Resting Tone [place]: Relaxed Datetime: 09/03/2018 10:00 Labor Evaluation Frequency: NONE Monitor Mode: External Pattern: Normal: <= 5 Contractions in 10 Minutes Resting Tone [place]: Relaxed Datetime: 09/03/2018 09:00 Labor Evaluation Frequency: NONE Monitor Mode: External Pattern: Normal: <= 5 Contractions in 10 Minutes Resting Tone [place]: Relaxed Datetime: 09/03/2018 08:17 Assessment Type: Ongoing Assessment Maternal Assessment Level of Consciousness: Fully Conscious DTR's/Clonus: DTRs 2+; No Clonus Headache: Denies Blurred Vision: No Respiratory Effort: Unlabored; Regular Rhythm; Equal Expansion Breath Sounds, Left: Clear and Equal Breath Sounds, Right: Clear and Equal Nausea/Vomiting: Denies RUQ Epigastric Pain: Denies Lower Extremities Edema: None Upper Extremities Edema: None Facial Edema: None Fall Risk Assessment History of Falling: (0) No Secondary Diagnosis: (0) No Ambulatory Aid: (0) Bedrest/Nurse Assist Gait: (0) Normal/Bedrest/Immobile Mental Status: (0) Oriented to Own Ability Datetime: 09/03/2018 08:00 Labor Evaluation Frequency: NONE Monitor Mode: External Pattern: Normal: <= 5 Contractions in 10 Minutes Resting Tone [place]: Relaxed Datetime: 09/03/2018 07:32 Temperature Route: Oral Pain Assessment Pain Scale: 0 Pain Presence: None/Denies Pain Goal: 2 Datetime: 09/03/2018 05:40 Labor Evaluation Frequency: 0 Monitor Mode: External Resting Tone [place]: Relaxed Datetime: 09/03/2018 05:23 Maternal Assessment Level of Consciousness: Fully Conscious Headache: Denies Blurred Vision: No Datetime: 09/03/2018 04:40 Labor Evaluation Frequency: 0 Monitor Mode: External Resting Tone [place]: Relaxed Datetime: 09/03/2018 03:40 Labor Evaluation Frequency: 0 Monitor Mode: External Duration (sec)2399: DENIES Resting Tone [place]: Relaxed Pain Presence: None/Denies Datetime: 09/03/2018 02:40 Labor Evaluation Frequency: 0 Monitor Mode: External Resting Tone [place]: Relaxed Pain Presence: None/Denies Datetime: 09/03/2018 01:40 Labor Evaluation Frequency: 0 Monitor Mode: External Resting Tone [place]: Relaxed Pain Presence: None/Denies Datetime: 09/03/2018 00:40 Labor Evaluation Frequency: 0 Monitor Mode: External Resting Tone [place]: Relaxed Datetime: 09/02/2018 23:40 Labor Evaluation Frequency: 0 Monitor Mode: External Duration (sec)2399: DENIES Resting Tone [place]: Relaxed Pain Presence: None/Denies Datetime: 09/02/2018 22:41 Labor Evaluation Frequency: 0 Monitor Mode: External Resting Tone [place]: Relaxed Heart Rate FHR Baseline Rate: 140 Monitor Mode: External US Variability: Moderate 6-25 bpm Accelerations: 15X15 Decelerations: None Category: Category I Comments: nst done. Datetime: 09/02/2018 22:08 Monitor Mode: External US Comments: placed nst started. Datetime: 09/02/2018 22:00 Labor Evaluation Frequency: 0 Monitor Mode: External Resting Tone [place]: Relaxed Datetime: 09/02/2018 21:00 Labor Evaluation Frequency: 0 Monitor Mode: External Duration (sec)2399: denies Resting Tone [place]: Relaxed Pain Presence: None/Denies Datetime: 09/02/2018 20:00 Labor Evaluation Frequency: 0 Monitor Mode: External Duration (sec)2399: denies Resting Tone [place]: Relaxed Pain Presence: None/Denies Datetime: 09/02/2018 19:20 Stage of : Antepartum Assessment Type: Ongoing Assessment Maternal Assessment Level of Consciousness: Fully Conscious DTR's/Clonus: DTRs 2+; No Clonus Headache: Denies Blurred Vision: No Respiratory Effort: Unlabored; Regular Rhythm; Equal Expansion Breath Sounds, Left: Clear and Equal Breath Sounds, Right: Clear and Equal Nausea/Vomiting: Denies RUQ Epigastric Pain: Denies Lower Extremities Edema: None Degree: None Upper Extremities Edema: None Degree: None Facial Edema: None Temperature Route: Oral Fall Risk Assessment History of Falling: (0) No Secondary Diagnosis: (0) No Ambulatory Aid: (0) Bedrest/Nurse Assist IV Therapy: (0) No Gait: (0) Normal/Bedrest/Immobile Mental Status: (0) Oriented to Own Ability Fall Score: 0 Fall Risk Score Definition: No Risk: No action required Pain Presence: None/Denies Datetime: 09/02/2018 18:00 Stage of : Antepartum Maternal Assessment Level of Consciousness: Fully Conscious Headache: Denies Nausea/Vomiting: Denies RUQ Epigastric Pain: Denies Pain Presence: None/Denies Datetime: 09/02/2018 17:00 Stage of : Antepartum Maternal Assessment Level of Consciousness: Fully Conscious Headache: Denies Nausea/Vomiting: Denies RUQ Epigastric Pain: Denies Pain Presence: None/Denies Datetime: 09/02/2018 16:12 Maternal Assessment Level of Consciousness: Fully Conscious Headache: Denies Blurred Vision: No Respiratory Effort: Unlabored Nausea/Vomiting: Denies RUQ Epigastric Pain: Denies Labor Evaluation Frequency: 0 Resting Tone [place]: Relaxed Datetime: 09/02/2018 16:00 Stage of : Antepartum Maternal Assessment Level of Consciousness: Fully Conscious Headache: Denies Nausea/Vomiting: Denies RUQ Epigastric Pain: Denies Pain Presence: None/Denies Datetime: 09/02/2018 15:00 Stage of : Antepartum Maternal Assessment Level of Consciousness: Fully Conscious Headache: Denies Nausea/Vomiting: Denies RUQ Epigastric Pain: Denies Pain Presence: None/Denies Datetime: 09/02/2018 14:04 Stage of : Antepartum Maternal Assessment Level of Consciousness: Fully Conscious Headache: Denies Nausea/Vomiting: Denies RUQ Epigastric Pain: Denies Pain Presence: None/Denies Datetime: 09/02/2018 13:06 Stage of : Antepartum Maternal Assessment Level of Consciousness: Fully Conscious Headache: Denies Blurred Vision: No Respiratory Effort: Unlabored Nausea/Vomiting: Denies RUQ Epigastric Pain: Denies Pain Presence: None/Denies Datetime: 09/02/2018 11:21 Stage of : Antepartum Labor Evaluation Frequency: 0/hr Monitor Mode: External Contraction Comments: pt. denies uc's, cramping, or back pain or vaginal pressure Datetime: 09/02/2018 09:48 Pain Presence: None/Denies Datetime: 09/02/2018 09:43 Stage of : Antepartum Labor Evaluation Frequency: 0/hr Monitor Mode: External Heart Rate FHR Baseline Rate: 135 Monitor Mode: External US Variability: Moderate 6-25 bpm Accelerations: 15X15 Decelerations: None Comments: approp. for ega 28.3 Datetime: 09/02/2018 09:23 Maternal Assessment Level of Consciousness: Fully Conscious Headache: Denies Blurred Vision: No Respiratory Effort: Unlabored Nausea/Vomiting: Denies RUQ Epigastric Pain: Denies Monitor Mode: External Resting Tone [place]: Relaxed Comments: nst q shift ega 28.3 today Pain Presence: Intermittent Datetime: 09/02/2018 09:03 Stage of : Antepartum Maternal Assessment Level of Consciousness: Fully Conscious Headache: Denies Nausea/Vomiting: Denies RUQ Epigastric Pain: Denies Pain Presence: None/Denies Datetime: 09/02/2018 08:12 Stage of : Antepartum Maternal Assessment Level of Consciousness: Fully Conscious Headache: Denies Nausea/Vomiting: Denies RUQ Epigastric Pain: Denies Pain Presence: None/Denies Datetime: 09/02/2018 07:20 Stage of : Antepartum Assessment Type: Ongoing Assessment Maternal Assessment Level of Consciousness: Fully Conscious Maternal Assessment Level of Consciousness: Fully Conscious DTR's/Clonus: DTRs 2+; No Clonus Headache: Denies Headache: Denies Blurred Vision: No Blurred Vision: No Respiratory Effort: Unlabored; Regular Rhythm; Equal Expansion Respiratory Effort: Unlabored Breath Sounds, Left: Clear and Equal Breath Sounds, Right: Clear and Equal Nausea/Vomiting: Denies Nausea/Vomiting: Denies RUQ Epigastric Pain: Denies RUQ Epigastric Pain: Denies Lower Extremities Edema: None Degree: None Facial Edema: None Fall Risk Assessment History of Falling: (0) No Secondary Diagnosis: (0) No Ambulatory Aid: (0) Bedrest/Nurse Assist IV Therapy: (0) No Gait: (0) Normal/Bedrest/Immobile Mental Status: (0) Oriented to Own Ability Fall Score: 0 Fall Risk Score Definition: No Risk: No action required Pain Presence: None/Denies Datetime: 09/02/2018 06:00 Labor Evaluation Frequency: 0 Monitor Mode: External Resting Tone [place]: Relaxed Pain Presence: None/Denies Datetime: 09/02/2018 05:00 Labor Evaluation Frequency: 0 Monitor Mode: External Duration (sec)2399: DENIES Resting Tone [place]: Relaxed Pain Presence: None/Denies Datetime: 09/02/2018 04:50 Maternal Assessment Level of Consciousness: Fully Conscious Headache: Denies Blurred Vision: No Datetime: 09/02/2018 04:00 Labor Evaluation Frequency: 0 Monitor Mode: External Duration (sec)2399: denies Resting Tone [place]: Relaxed Pain Presence: None/Denies Datetime: 09/02/2018 03:00 Labor Evaluation Frequency: 0 Monitor Mode: External Duration (sec)2399: denies Resting Tone [place]: Relaxed Pain Presence: None/Denies Datetime: 09/02/2018 02:10 Labor Evaluation Frequency: 0 Monitor Mode: External Duration (sec)2399: denies Resting Tone [place]: Relaxed Pain Presence: None/Denies Datetime: 09/02/2018 01:10 Labor Evaluation Frequency: 0 Monitor Mode: External Duration (sec)2399: denies Resting Tone [place]: Relaxed Pain Presence: None/Denies Datetime: 09/02/2018 00:11 Labor Evaluation Frequency: 0 Monitor Mode: External Resting Tone [place]: Relaxed Heart Rate FHR Baseline Rate: 135 Monitor Mode: External US Variability: Moderate 6-25 bpm Accelerations: 15X15 Decelerations: None Comments: nst done. appropriate for ga. Pain Presence: None/Denies Datetime: 09/01/2018 23:38 Monitor Mode: External US Comments: nst started. Datetime: 09/01/2018 23:00 Labor Evaluation Frequency: 0 Monitor Mode: External Duration (sec)2399: denies Resting Tone [place]: Relaxed Datetime: 09/01/2018 22:00 Labor Evaluation Frequency: 0 Monitor Mode: External Duration (sec)2399: denies Resting Tone [place]: Relaxed Pain Presence: None/Denies Datetime: 09/01/2018 21:00 Labor Evaluation Frequency: 0 Monitor Mode: External Duration (sec)2399: DENIES Resting Tone [place]: Relaxed Comments: NST Q SHIFT,PT STATED FEELING BABY MOVING. Pain Presence: None/Denies Datetime: 09/01/2018 20:00 Labor Evaluation Frequency: 0 Monitor Mode: External Duration (sec)2399: DENIES Resting Tone [place]: Relaxed Datetime: 09/01/2018 19:33 Stage of : Antepartum Assessment Type: Ongoing Assessment Maternal Assessment Level of Consciousness: Fully Conscious DTR's/Clonus: DTRs 2+; No Clonus Headache: Denies Blurred Vision: No Respiratory Effort: Unlabored; Regular Rhythm; Equal Expansion Breath Sounds, Left: Clear and Equal Breath Sounds, Right: Clear and Equal Nausea/Vomiting: Denies RUQ Epigastric Pain: Denies Lower Extremities Edema: None Degree: None Upper Extremities Edema: None Degree: None Facial Edema: None Temperature Route: Oral Fall Risk Assessment History of Falling: (0) No Secondary Diagnosis: (0) No Ambulatory Aid: (0) Bedrest/Nurse Assist IV Therapy: (0) No Gait: (0) Normal/Bedrest/Immobile Mental Status: (0) Oriented to Own Ability Fall Score: 0 Fall Risk Score Definition: No Risk: No action required Pain Presence: None/Denies Datetime: 09/01/2018 18:25 Stage of : Antepartum Maternal Assessment Level of Consciousness: Fully Conscious Headache: Denies Nausea/Vomiting: Denies RUQ Epigastric Pain: Denies Labor Evaluation Frequency: 0/hr Monitor Mode: External Pain Presence: None/Denies Datetime: 09/01/2018 18:18 Pain Presence: None/Denies Datetime: 09/01/2018 17:06 Stage of : Antepartum Maternal Assessment Level of Consciousness: Fully Conscious Headache: Denies Nausea/Vomiting: Denies RUQ Epigastric Pain: Denies Labor Evaluation Frequency: 0/hr Monitor Mode: External Pain Presence: None/Denies Datetime: 09/01/2018 16:07 Stage of : Antepartum Maternal Assessment Level of Consciousness: Fully Conscious Headache: Denies Nausea/Vomiting: Denies RUQ Epigastric Pain: Denies Temperature Route: Oral Resting Tone [place]: Relaxed Pain Assessment Pain Scale: 0 Pain Presence: None/Denies Vaginal Bleeding: None Datetime: 09/01/2018 16:00 Stage of : Antepartum Maternal Assessment Level of Consciousness: Fully Conscious Headache: Denies Nausea/Vomiting: Denies RUQ Epigastric Pain: Denies Labor Evaluation Frequency: 0/hr Monitor Mode: External Pain Presence: None/Denies Datetime: 09/01/2018 15:00 Stage of : Antepartum Maternal Assessment Level of Consciousness: Fully Conscious Headache: Denies Nausea/Vomiting: Denies RUQ Epigastric Pain: Denies Labor Evaluation Frequency: 0/hr Monitor Mode: External Pain Presence: None/Denies Datetime: 09/01/2018 14:50 Maternal Assessment Level of Consciousness: Fully Conscious Headache: Denies Blurred Vision: No Nausea/Vomiting: Denies RUQ Epigastric Pain: Denies Resting Tone [place]: Relaxed Contraction Comments: pt. denies uc's or cramping Pain Presence: None/Denies Datetime: 09/01/2018 14:00 Stage of : Antepartum Maternal Assessment Level of Consciousness: Fully Conscious Headache: Denies Nausea/Vomiting: Denies RUQ Epigastric Pain: Denies Labor Evaluation Frequency: 0/hr Monitor Mode: External Pain Presence: None/Denies Datetime: 09/01/2018 13:00 Stage of : Antepartum Maternal Assessment Level of Consciousness: Fully Conscious Headache: Denies Nausea/Vomiting: Denies RUQ Epigastric Pain: Denies Labor Evaluation Frequency: 0/hr Monitor Mode: External Pain Presence: None/Denies Datetime: 09/01/2018 12:13 Stage of : Antepartum Maternal Assessment Level of Consciousness: Fully Conscious Headache: Denies Nausea/Vomiting: Denies RUQ Epigastric Pain: Denies Labor Evaluation Frequency: 0/hr Monitor Mode: External Pain Presence: None/Denies Datetime: 09/01/2018 11:47 Maternal Assessment Level of Consciousness: Fully Conscious Headache: Denies Blurred Vision: No Respiratory Effort: Unlabored Nausea/Vomiting: Denies RUQ Epigastric Pain: Denies Monitor Mode: External Resting Tone [place]: Relaxed Pain Presence: None/Denies Datetime: 09/01/2018 11:04 Stage of : Antepartum Maternal Assessment Level of Consciousness: Fully Conscious Headache: Denies Nausea/Vomiting: Denies RUQ Epigastric Pain: Denies Labor Evaluation Frequency: 0/hr Monitor Mode: External Comments: nst q shift. pt. acknowledges movements Pain Presence: None/Denies Datetime: 09/01/2018 10:15 Monitor Mode: External Resting Tone [place]: Relaxed Datetime: 09/01/2018 10:06 Heart Rate FHR Baseline Rate: 145 Variability: Moderate 6-25 bpm Accelerations: 10X10 Comments: ega 28.2 Datetime: 09/01/2018 09:38 Maternal Assessment Level of Consciousness: Fully Conscious Headache: Denies Blurred Vision: No Respiratory Effort: Unlabored Nausea/Vomiting: Denies Monitor Mode: External Resting Tone [place]: Relaxed Datetime: 09/01/2018 08:52 Pain Presence: None/Denies Datetime: 09/01/2018 07:15 Stage of : Antepartum Maternal Assessment Level of Consciousness: Fully Conscious Headache: Denies Blurred Vision: No Respiratory Effort: Unlabored Nausea/Vomiting: Denies RUQ Epigastric Pain: Denies Temperature Route: Oral Resting Tone [place]: Relaxed Pain Presence: None/Denies Datetime: 09/01/2018 07:00 Labor Evaluation Frequency: 0 Monitor Mode: External Datetime: 09/01/2018 06:00 Labor Evaluation Frequency: 0 Monitor Mode: External Datetime: 09/01/2018 05:00 Labor Evaluation Frequency: 0 Monitor Mode: External Datetime: 09/01/2018 04:00 Labor Evaluation Frequency: 0 Monitor Mode: External Datetime: 09/01/2018 03:00 Labor Evaluation Frequency: 0 Monitor Mode: External Datetime: 09/01/2018 02:00 Labor Evaluation Frequency: 0 Monitor Mode: External Datetime: 09/01/2018 01:00 Labor Evaluation Frequency: 0 Monitor Mode: External Datetime: 09/01/2018 00:00 Labor Evaluation Frequency: 0 Monitor Mode: External Datetime: 08/31/2018 23:00 Labor Evaluation Frequency: 0 Monitor Mode: External Datetime: 08/31/2018 22:00 Labor Evaluation Frequency: 0 Monitor Mode: External Datetime: 08/31/2018 21:00 Labor Evaluation Frequency: 0 Monitor Mode: External Datetime: 08/31/2018 20:10 Assessment Type: Ongoing Assessment Maternal Assessment Level of Consciousness: Fully Conscious Headache: Denies Blurred Vision: No Respiratory Effort: Unlabored; Regular Rhythm; Equal Expansion Nausea/Vomiting: Denies RUQ Epigastric Pain: Denies Lower Extremities Edema: None Upper Extremities Edema: None Facial Edema: None Fall Risk Assessment History of Falling: (0) No Secondary Diagnosis: (0) No Ambulatory Aid: (0) Bedrest/Nurse Assist IV Therapy: (0) No Gait: (0) Normal/Bedrest/Immobile Mental Status: (0) Oriented to Own Ability Fall Score: 0 Fall Risk Score Definition: No Risk: No action required Labor Evaluation Frequency: 0 Monitor Mode: External Heart Rate FHR Baseline Rate: 140 Monitor Mode: External US FHR Baseline Changes: No Baseline Change Variability: Moderate 6-25 bpm Accelerations: 15X15 Decelerations: None Category: Category I Datetime: 08/31/2018 20:09 Temperature Route: Oral Pain Assessment Pain Scale: 0 Pain Presence: None/Denies Datetime: 08/31/2018 20:00 Labor Evaluation Frequency: 0 Monitor Mode: External Datetime: 08/31/2018 19:00 Stage of : Antepartum Maternal Assessment Level of Consciousness: Fully Conscious Headache: Denies Nausea/Vomiting: Denies RUQ Epigastric Pain: Denies Labor Evaluation Frequency: 0/hr Monitor Mode: External Pain Presence: None/Denies Datetime: 08/31/2018 18:00 Stage of : Antepartum Maternal Assessment Level of Consciousness: Fully Conscious Headache: Denies Nausea/Vomiting: Denies RUQ Epigastric Pain: Denies Labor Evaluation Frequency: 0/hr Monitor Mode: External Pain Presence: None/Denies Datetime: 08/31/2018 17:00 Stage of : Antepartum Maternal Assessment Level of Consciousness: Fully Conscious Headache: Denies Nausea/Vomiting: Denies RUQ Epigastric Pain: Denies Labor Evaluation Frequency: 0/hr Monitor Mode: External Pain Presence: None/Denies Datetime: 08/31/2018 16:00 Stage of : Antepartum Maternal Assessment Level of Consciousness: Fully Conscious Headache: Denies Nausea/Vomiting: Denies RUQ Epigastric Pain: Denies Labor Evaluation Frequency: 0/hr Monitor Mode: External Pain Presence: None/Denies Datetime: 08/31/2018 15:38 Maternal Assessment Level of Consciousness: Fully Conscious Headache: Denies Blurred Vision: No Respiratory Effort: Unlabored Nausea/Vomiting: Denies RUQ Epigastric Pain: Denies Pain Presence: None/Denies Datetime: 08/31/2018 14:00 Stage of : Antepartum Maternal Assessment Level of Consciousness: Fully Conscious Headache: Denies Nausea/Vomiting: Denies RUQ Epigastric Pain: Denies Labor Evaluation Frequency: 0/hr Monitor Mode: External Pain Presence: None/Denies Datetime: 08/31/2018 13:52 Maternal Assessment Level of Consciousness: Fully Conscious Headache: Denies Blurred Vision: No Respiratory Effort: Unlabored Nausea/Vomiting: Denies RUQ Epigastric Pain: Denies Pain Presence: None/Denies Datetime: 08/31/2018 13:08 Heart Rate FHR Baseline Rate: 140 Monitor Mode: External US Variability: Moderate 6-25 bpm Accelerations: 15X15 Decelerations: None Comments: fht's approp. for ega of 28.1 today Datetime: 08/31/2018 10:08 Stage of : Antepartum Maternal Assessment Level of Consciousness: Fully Conscious Headache: Denies Nausea/Vomiting: Denies RUQ Epigastric Pain: Denies Labor Evaluation Frequency: 0/hr Monitor Mode: External Pain Presence: None/Denies Datetime: 08/31/2018 08:48 Maternal Assessment Level of Consciousness: Fully Conscious Headache: Denies Blurred Vision: No Respiratory Effort: Unlabored Nausea/Vomiting: Denies RUQ Epigastric Pain: Denies Pain Presence: None/Denies Datetime: 08/31/2018 07:56 Pain Presence: None/Denies Datetime: 08/31/2018 07:28 Maternal Assessment Level of Consciousness: Fully Conscious Headache: Denies Blurred Vision: No Respiratory Effort: Unlabored Breath Sounds, Left: Clear and Equal Breath Sounds, Right: Clear and Equal Nausea/Vomiting: Denies RUQ Epigastric Pain: Denies Resting Tone [place]: Relaxed Pain Presence: None/Denies Datetime: 08/31/2018 07:00 Stage of : Antepartum Labor Evaluation Frequency: 0 Monitor Mode: External Pattern: Normal: <= 5 Contractions in 10 Minutes Resting Tone [place]: Relaxed Datetime: 08/31/2018 06:30 Assessment Type: Ongoing Assessment Datetime: 08/31/2018 06:00 Stage of : Antepartum Labor Evaluation Frequency: 0 Monitor Mode: External Pattern: Normal: <= 5 Contractions in 10 Minutes Resting Tone [place]: Relaxed Datetime: 08/31/2018 05:48 Stage of : Antepartum Temperature Route: Oral Datetime: 08/31/2018 05:00 Stage of : Antepartum Labor Evaluation Frequency: 0 Monitor Mode: External Pattern: Normal: <= 5 Contractions in 10 Minutes Resting Tone [place]: Relaxed Datetime: 08/31/2018 04:00 Stage of : Antepartum Labor Evaluation Frequency: 0 Monitor Mode: External Pattern: Normal: <= 5 Contractions in 10 Minutes Resting Tone [place]: Relaxed Datetime: 08/31/2018 03:00 Stage of : Antepartum Labor Evaluation Frequency: 0 Monitor Mode: External Pattern: Normal: <= 5 Contractions in 10 Minutes Resting Tone [place]: Relaxed Datetime: 08/31/2018 02:00 Stage of : Antepartum Labor Evaluation Frequency: 0 Monitor Mode: External Pattern: Normal: <= 5 Contractions in 10 Minutes Resting Tone [place]: Relaxed Datetime: 08/31/2018 01:00 Stage of : Antepartum Labor Evaluation Frequency: 0 Monitor Mode: External Pattern: Normal: <= 5 Contractions in 10 Minutes Resting Tone [place]: Relaxed Datetime: 08/31/2018 00:00 Stage of : Antepartum Labor Evaluation Frequency: 0 Monitor Mode: External Pattern: Normal: <= 5 Contractions in 10 Minutes Resting Tone [place]: Relaxed Datetime: 08/30/2018 23:00 Stage of : Antepartum Labor Evaluation Frequency: 0 Monitor Mode: External Pattern: Normal: <= 5 Contractions in 10 Minutes Resting Tone [place]: Relaxed Datetime: 08/30/2018 22:22 Stage of : Antepartum Temperature Route: Oral Datetime: 08/30/2018 22:00 Stage of : Antepartum Labor Evaluation Frequency: 0 Monitor Mode: External Pattern: Normal: <= 5 Contractions in 10 Minutes Resting Tone [place]: Relaxed Heart Rate FHR Baseline Rate: 130 Monitor Mode: External US Variability: Moderate 6-25 bpm Accelerations: 15X15 Decelerations: None Category: Category I Datetime: 08/30/2018 21:15 Monitor Mode: External Monitor Mode: External US Datetime: 08/30/2018 21:03 Monitor Mode: External Monitor Mode: External US Datetime: 08/30/2018 21:00 Stage of : Antepartum Labor Evaluation Frequency: 0 Monitor Mode: External Pattern: Normal: <= 5 Contractions in 10 Minutes Resting Tone [place]: Relaxed Datetime: 08/30/2018 20:47 Monitor Mode: External Monitor Mode: External US Datetime: 08/30/2018 20:00 Stage of : Antepartum Labor Evaluation Frequency: 0 Monitor Mode: External Pattern: Normal: <= 5 Contractions in 10 Minutes Resting Tone [place]: Relaxed Datetime: 08/30/2018 19:43 Stage of : Antepartum Assessment Type: Ongoing Assessment Maternal Assessment Level of Consciousness: Fully Conscious DTR's/Clonus: DTRs 2+; No Clonus Headache: Denies Blurred Vision: No Respiratory Effort: Unlabored; Regular Rhythm; Equal Expansion Breath Sounds, Left: Clear and Equal Breath Sounds, Right: Clear and Equal Nausea/Vomiting: Denies RUQ Epigastric Pain: Denies Facial Edema: None Temperature Route: Oral Fall Risk Assessment History of Falling: (0) No Secondary Diagnosis: (0) No Ambulatory Aid: (0) Bedrest/Nurse Assist IV Therapy: (0) No Gait: (0) Normal/Bedrest/Immobile Mental Status: (0) Oriented to Own Ability Fall Score: 0 Fall Risk Score Definition: No Risk: No action required Datetime: 08/30/2018 19:20 Stage of : Antepartum Datetime: 08/30/2018 18:16 Labor Evaluation Frequency: 0 Monitor Mode: External Resting Tone [place]: Relaxed Datetime: 08/30/2018 17:40 Labor Evaluation Frequency: 0 Monitor Mode: External Resting Tone [place]: Relaxed Datetime: 08/30/2018 16:42 Labor Evaluation Frequency: 0 Monitor Mode: External Resting Tone [place]: Relaxed Datetime: 08/30/2018 15:43 Labor Evaluation Frequency: 0 Monitor Mode: External Resting Tone [place]: Relaxed Datetime: 08/30/2018 15:02 Labor Evaluation Frequency: 0 Monitor Mode: External Resting Tone [place]: Relaxed Datetime: 08/30/2018 13:55 Labor Evaluation Frequency: 0 Monitor Mode: External Resting Tone [place]: Relaxed Datetime: 08/30/2018 12:51 Labor Evaluation Frequency: 0 Monitor Mode: External Resting Tone [place]: Relaxed Datetime: 08/30/2018 10:30 Labor Evaluation Frequency: 0 Monitor Mode: External Resting Tone [place]: Relaxed Datetime: 08/30/2018 09:37 Labor Evaluation Frequency: 0 Monitor Mode: External Resting Tone [place]: Relaxed Heart Rate FHR Baseline Rate: 135 Monitor Mode: External US FHR Baseline Changes: No Baseline Change Variability: Moderate 6-25 bpm Accelerations: 15X15 Decelerations: None Category: Category I Datetime: 08/30/2018 09:07 Assessment Type: Ongoing Assessment Maternal Assessment Level of Consciousness: Fully Conscious DTR's/Clonus: DTRs 2+; No Clonus Headache: Denies Blurred Vision: No Respiratory Effort: Unlabored; Regular Rhythm; Equal Expansion Breath Sounds, Left: Clear and Equal Breath Sounds, Right: Clear and Equal Nausea/Vomiting: Denies RUQ Epigastric Pain: Denies Facial Edema: None Fall Risk Assessment History of Falling: (0) No Secondary Diagnosis: (0) No Ambulatory Aid: (0) Bedrest/Nurse Assist IV Therapy: (0) No Gait: (0) Normal/Bedrest/Immobile Mental Status: (0) Oriented to Own Ability Fall Score: 0 Fall Risk Score Definition: No Risk: No action required Datetime: 08/30/2018 09:06 Pain Presence: None/Denies Datetime: 08/30/2018 09:04 Labor Evaluation Frequency: 0 Monitor Mode: External Resting Tone [place]: Relaxed Datetime: 08/30/2018 06:45 Labor Evaluation Frequency: 0 Monitor Mode: External Duration (sec)2399: denies Resting Tone [place]: Relaxed Pain Presence: None/Denies Datetime: 08/30/2018 05:50 Labor Evaluation Frequency: 0 Monitor Mode: External Resting Tone [place]: Relaxed Datetime: 08/30/2018 05:32 Stage of : Antepartum Maternal Assessment Level of Consciousness: Fully Conscious DTR's/Clonus: DTRs 2+ Headache: Denies Blurred Vision: No Temperature Route: Oral Pain Presence: None/Denies Datetime: 08/30/2018 04:50 Labor Evaluation Frequency: 0 Monitor Mode: External Duration (sec)2399: denies Resting Tone [place]: Relaxed Pain Presence: None/Denies Datetime: 08/30/2018 03:50 Labor Evaluation Frequency: 0 Monitor Mode: External Resting Tone [place]: Relaxed Datetime: 08/30/2018 02:45 Labor Evaluation Frequency: 0 Monitor Mode: External Duration (sec)2399: denies Resting Tone [place]: Relaxed Datetime: 08/30/2018 01:45 Labor Evaluation Frequency: 0 Monitor Mode: External Resting Tone [place]: Relaxed Datetime: 08/30/2018 00:45 Labor Evaluation Frequency: 0 Monitor Mode: External Resting Tone [place]: Relaxed Datetime: 08/29/2018 23:45 Labor Evaluation Frequency: 0 Monitor Mode: External Duration (sec)2399: DENIES Resting Tone [place]: Relaxed Pain Presence: None/Denies Datetime: 08/29/2018 22:44 Labor Evaluation Frequency: 0 Monitor Mode: External Resting Tone [place]: Relaxed Heart Rate FHR Baseline Rate: 140 Monitor Mode: External US Variability: Moderate 6-25 bpm Accelerations: 15X15 Decelerations: None Comments: NST DONE APPROPRIATE FOR GA,27 WEEKS AND 6 DAYS. Pain Presence: None/Denies Datetime: 08/29/2018 21:58 Labor Evaluation Frequency: 0 Monitor Mode: External Duration (sec)2399: denies Resting Tone [place]: Relaxed Monitor Mode: External US Comments: placed nst started. Datetime: 08/29/2018 21:00 Labor Evaluation Frequency: 0 Monitor Mode: External Duration (sec)2399: denies Resting Tone [place]: Relaxed Pain Presence: None/Denies Datetime: 08/29/2018 20:00 Labor Evaluation Frequency: 0 Monitor Mode: External Duration (sec)2399: denies Resting Tone [place]: Relaxed Pain Presence: None/Denies Datetime: 08/29/2018 19:27 Stage of : Antepartum Assessment Type: Ongoing Assessment Maternal Assessment Level of Consciousness: Fully Conscious DTR's/Clonus: DTRs 2+; No Clonus Headache: Denies Blurred Vision: No Respiratory Effort: Unlabored; Regular Rhythm; Equal Expansion Breath Sounds, Left: Clear and Equal Breath Sounds, Right: Clear and Equal Nausea/Vomiting: Denies RUQ Epigastric Pain: Denies Lower Extremities Edema: None Degree: None Upper Extremities Edema: None Degree: None Facial Edema: None Temperature Route: Oral Fall Risk Assessment History of Falling: (0) No Secondary Diagnosis: (0) No Ambulatory Aid: (0) Bedrest/Nurse Assist IV Therapy: (0) No Gait: (0) Normal/Bedrest/Immobile Mental Status: (0) Oriented to Own Ability Fall Score: 0 Fall Risk Score Definition: No Risk: No action required Pain Presence: None/Denies Datetime: 08/29/2018 18:14 Labor Evaluation Frequency: 0 Monitor Mode: External Resting Tone [place]: Relaxed Datetime: 08/29/2018 16:09 Labor Evaluation Frequency: 0 Monitor Mode: External Resting Tone [place]: Relaxed Datetime: 08/29/2018 14:45 Labor Evaluation Frequency: 0 Monitor Mode: External Resting Tone [place]: Relaxed Pain Presence: None/Denies Pain Assessment Comments: pt denies feeling contrtactions, leaking or bleeding vaginally. has visit ors and states she is hopeful that she will get to go home tomorrow Datetime: 08/29/2018 12:54 Labor Evaluation Frequency: 0 Monitor Mode: External Resting Tone [place]: Relaxed Datetime: 08/29/2018 11:23 Labor Evaluation Frequency: 0 Monitor Mode: External Resting Tone [place]: Relaxed Datetime: 08/29/2018 10:29 Labor Evaluation Frequency: 0 Monitor Mode: External Resting Tone [place]: Relaxed Datetime: 08/29/2018 10:03 Labor Evaluation Frequency: 0 Monitor Mode: External Resting Tone [place]: Relaxed Datetime: 08/29/2018 09:50 Labor Evaluation Frequency: 0 Monitor Mode: External Resting Tone [place]: Relaxed Heart Rate FHR Baseline Rate: 140 Monitor Mode: External US FHR Baseline Changes: No Baseline Change Variability: Moderate 6-25 bpm Accelerations: 15X15 Decelerations: None Category: Category I Datetime: 08/29/2018 09:22 Labor Evaluation Frequency: 0 Monitor Mode: External Resting Tone [place]: Relaxed Heart Rate FHR Baseline Rate: 140 Monitor Mode: External US FHR Baseline Changes: No Baseline Change Variability: Moderate 6-25 bpm Accelerations: 15X15 Decelerations: None Category: Category I Datetime: 08/29/2018 09:20 Stage of : Antepartum Assessment Type: Ongoing Assessment Maternal Assessment Level of Consciousness: Fully Conscious DTR's/Clonus: DTRs 2+; No Clonus Headache: Denies Blurred Vision: No Respiratory Effort: Unlabored; Regular Rhythm; Equal Expansion Breath Sounds, Left: Clear and Equal Breath Sounds, Right: Clear and Equal Nausea/Vomiting: Denies RUQ Epigastric Pain: Denies Facial Edema: None Temperature Route: Axillary Fall Risk Assessment History of Falling: (0) No Secondary Diagnosis: (0) No Ambulatory Aid: (0) Bedrest/Nurse Assist IV Therapy: (0) No Gait: (0) Normal/Bedrest/Immobile Mental Status: (0) Oriented to Own Ability Fall Score: 0 Fall Risk Score Definition: No Risk: No action required Datetime: 08/29/2018 09:16 Pain Presence: None/Denies Datetime: 08/29/2018 08:46 Labor Evaluation Frequency: 0 Monitor Mode: External Resting Tone [place]: Relaxed Datetime: 08/29/2018 07:29 Stage of : Antepartum Datetime: 08/29/2018 06:57 Labor Evaluation Frequency: NONE Monitor Mode: External Resting Tone [place]: Relaxed Pain Presence: None/Denies Pain Type: N/A Datetime: 08/29/2018 06:00 Labor Evaluation Frequency: NONE Monitor Mode: External Resting Tone [place]: Relaxed Contraction Comments: PT DENIES CRAMPING Comments: PT STATES + FM Membrane Status: Intact Vaginal Bleeding: None Datetime: 08/29/2018 05:00 Monitor Mode: External Resting Tone [place]: Relaxed Contraction Comments: NONE Pain Presence: None/Denies Pain Type: N/A Pain Assessment Comments: PT SLEEPING BUT ESILY AROUSED Datetime: 08/29/2018 04:00 Labor Evaluation Frequency: NONE Monitor Mode: External Resting Tone [place]: Relaxed Pain Presence: None/Denies Pain Type: N/A Pain Assessment Comments: PT SLEEPING BUT EASILY AROUSED Datetime: 08/29/2018 03:00 Stage of : Antepartum Labor Evaluation Frequency: NONE Monitor Mode: External Resting Tone [place]: Relaxed Pain Presence: None/Denies Pain Type: N/A Pain Assessment Comments: PT SLEEPING BUT EASILY AROUSED Datetime: 08/29/2018 02:00 Labor Evaluation Frequency: NONE Monitor Mode: External Resting Tone [place]: Relaxed Pain Presence: None/Denies Pain Type: N/A Pain Assessment Comments: PT SLEEPING WITH EVEN UNLABORED BREATHING Datetime: 08/29/2018 00:57 Labor Evaluation Frequency: NONE Monitor Mode: External Resting Tone [place]: Relaxed Pain Presence: None/Denies Pain Type: N/A Datetime: 08/29/2018 00:00 Labor Evaluation Frequency: NONE Monitor Mode: External Resting Tone [place]: Relaxed Datetime: 08/28/2018 23:50 Temperature Route: Oral Contraction Comments: PT DENIES CRAMPING Comments: PT STATES + FM Pain Type: N/A Pain Location: Abdomen Membrane Status: Intact Vaginal Bleeding: None Datetime: 08/28/2018 23:00 Labor Evaluation Frequency: NONE Monitor Mode: External Resting Tone [place]: Relaxed Pain Presence: None/Denies Pain Type: N/A Datetime: 08/28/2018 22:08 Labor Evaluation Frequency: NONE Monitor Mode: External Resting Tone [place]: Relaxed Heart Rate FHR Baseline Rate: 130 Monitor Mode: External US Variability: Moderate 6-25 bpm Accelerations: 15X15 Decelerations: None Category: Category I Comments: EXT REMOVED. EFM COMPLETED. Pain Presence: None/Denies Pain Type: N/A Datetime: 08/28/2018 21:13 Monitor Mode: External Resting Tone [place]: Relaxed Contraction Comments: NONE Monitor Mode: External US Comments: APPLIED FOR NST Pain Presence: None/Denies Pain Type: N/A Datetime: 08/28/2018 19:58 Stage of : Antepartum Assessment Type: Ongoing Assessment Maternal Assessment Level of Consciousness: Fully Conscious DTR's/Clonus: DTRs 2+; No Clonus Headache: Denies Blurred Vision: No Respiratory Effort: Unlabored; Regular Rhythm; Equal Expansion Breath Sounds, Left: Clear and Equal Breath Sounds, Right: Clear and Equal Nausea/Vomiting: Denies RUQ Epigastric Pain: Denies Lower Extremities Edema: None Degree: None Upper Extremities Edema: None Degree: None Facial Edema: None Temperature Route: Oral Fall Risk Assessment History of Falling: (0) No Secondary Diagnosis: (0) No Ambulatory Aid: (0) Bedrest/Nurse Assist IV Therapy: (0) No Gait: (0) Normal/Bedrest/Immobile Mental Status: (0) Oriented to Own Ability Fall Score: 0 Fall Risk Score Definition: No Risk: No action required Labor Evaluation Frequency: NONE Monitor Mode: External Contraction Comments: PT DENIES CRAMPING Comments: PT STATES + FM Pain Presence: None/Denies Pain Type: N/A Membrane Status: Intact Vaginal Bleeding: None Datetime: 08/28/2018 19:23 Comments: 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 Datetime: 08/28/2018 19:00 Labor Evaluation Frequency: 0 Monitor Mode: External Duration (sec)2399: 0 Resting Tone [place]: Relaxed Pain Presence: None/Denies Pain Type: N/A Pain Goal: 3 Datetime: 08/28/2018 18:00 Labor Evaluation Frequency: 0 Monitor Mode: External Duration (sec)2399: 0 Resting Tone [place]: Relaxed Pain Assessment Pain Scale: 0 Pain Presence: None/Denies Pain Type: N/A Pain Goal: 3 Datetime: 08/28/2018 17:00 Labor Evaluation Frequency: 0 Monitor Mode: External Duration (sec)2399: 3 Resting Tone [place]: Relaxed Pain Assessment Pain Scale: 0 Pain Presence: None/Denies Pain Type: N/A Pain Goal: 3 Datetime: 08/28/2018 16:35 Stage of : Antepartum Temperature Route: Oral Datetime: 08/28/2018 16:00 Labor Evaluation Frequency: 0 Monitor Mode: External Duration (sec)2399: 0 Resting Tone [place]: Relaxed Pain Assessment Pain Scale: 0 Pain Presence: None/Denies Pain Type: N/A Pain Goal: 3 Datetime: 08/28/2018 15:00 Labor Evaluation Frequency: 0 Monitor Mode: External Duration (sec)2399: 0 Resting Tone [place]: Relaxed Pain Assessment Pain Scale: 0 Pain Presence: None/Denies Pain Type: N/A Pain Goal: 3 Datetime: 08/28/2018 14:01 Labor Evaluation Frequency: 0 Monitor Mode: External Duration (sec)2399: 0 Resting Tone [place]: Relaxed Heart Rate FHR Baseline Rate: 140 Monitor Mode: External US FHR Baseline Changes: No Baseline Change Variability: Moderate 6-25 bpm Accelerations: 15X15 Decelerations: None Category: Category I Comments: U/S REMOVED Pain Assessment Pain Scale: 0 Pain Presence: None/Denies Pain Type: N/A Pain Goal: 3 Datetime: 08/28/2018 13:04 Comments: u/s placed Datetime: 08/28/2018 12:59 Stage of : Labor Temperature Route: Oral Datetime: 08/28/2018 12:55 Labor Evaluation Frequency: 0 Monitor Mode: External Duration (sec)2399: 0 Resting Tone [place]: Relaxed Pain Assessment Pain Scale: 0 Pain Presence: None/Denies Pain Type: N/A Pain Goal: 3 Datetime: 08/28/2018 12:00 Labor Evaluation Frequency: 0 Monitor Mode: External Duration (sec)2399: 0 Resting Tone [place]: Relaxed Pain Assessment Pain Scale: 0 Pain Presence: None/Denies Pain Type: N/A Pain Goal: 3 Datetime: 08/28/2018 11:52 Comments: Dr. Ardala at bedside rounding on pt. MD review pt's strip. No new orders received Datetime: 08/28/2018 11:00 Labor Evaluation Frequency: 0 Monitor Mode: External Duration (sec)2399: 0 Resting Tone [place]: Relaxed Pain Assessment Pain Scale: 0 Pain Presence: None/Denies Pain Type: N/A Pain Goal: 3 Datetime: 08/28/2018 10:00 Labor Evaluation Frequency: 0 Monitor Mode: External Duration (sec)2399: 0 Resting Tone [place]: Relaxed Pain Assessment Pain Scale: 0 Pain Presence: None/Denies Pain Type: N/A Pain Goal: 3 Datetime: 08/28/2018 09:00 Labor Evaluation Frequency: 0 Monitor Mode: External Duration (sec)2399: 0 Resting Tone [place]: Relaxed Pain Assessment Pain Scale: 0 Pain Presence: None/Denies Pain Type: N/A Pain Goal: 3 Datetime: 08/28/2018 08:10 Stage of : Antepartum Temperature Route: Oral Pain Assessment Pain Scale: 0 Pain Presence: None/Denies Pain Goal: 3 Datetime: 08/28/2018 08:01 Labor Evaluation Frequency: 0 Monitor Mode: External Duration (sec)2399: 0 Resting Tone [place]: Relaxed Pain Assessment Pain Scale: 0 Pain Presence: None/Denies Pain Type: N/A Pain Goal: 3 Datetime: 08/28/2018 08:00 Assessment Type: Ongoing Assessment Maternal Assessment Level of Consciousness: Fully Conscious DTR's/Clonus: DTRs 2+; No Clonus Headache: Denies Blurred Vision: No Respiratory Effort: Unlabored; Regular Rhythm; Equal Expansion Breath Sounds, Left: Clear and Equal Breath Sounds, Right: Clear and Equal Nausea/Vomiting: Denies RUQ Epigastric Pain: Denies Lower Extremities Edema: None Upper Extremities Edema: None Facial Edema: None Fall Risk Assessment History of Falling: (0) No Secondary Diagnosis: (0) No Ambulatory Aid: (0) Bedrest/Nurse Assist IV Therapy: (0) No Gait: (0) Normal/Bedrest/Immobile Mental Status: (0) Oriented to Own Ability Fall Score: 0 Fall Risk Score Definition: No Risk: No action required Datetime: 08/28/2018 07:29 Stage of : Antepartum Datetime: 08/28/2018 07:08 Stage of : Antepartum Datetime: 08/28/2018 07:07 Stage of : Antepartum Labor Evaluation Frequency: NONE Monitor Mode: External Datetime: 08/28/2018 07:00 Stage of : Antepartum Labor Evaluation Frequency: NONE Monitor Mode: External Pain Presence: None/Denies Datetime: 08/28/2018 06:10 Stage of : Antepartum Pain Presence: None/Denies Pain Type: N/A Pain Assessment Comments: PT SLEEPING WITH EVN UNLABORED BREATHING. Datetime: 08/28/2018 06:00 Stage of : Antepartum Labor Evaluation Frequency: NONE Monitor Mode: External Datetime: 08/28/2018 05:07 Stage of : Antepartum Datetime: 08/28/2018 05:00 Stage of : Antepartum Labor Evaluation Frequency: NONE Monitor Mode: External Datetime: 08/28/2018 04:00 Stage of : Antepartum Labor Evaluation Frequency: NONE Monitor Mode: External Datetime: 08/28/2018 03:30 Stage of : Antepartum Pain Presence: None/Denies Pain Type: N/A Pain Assessment Comments: PT SLEEPING WITH EVEN UNLABORED BREATHING. Datetime: 08/28/2018 03:00 Stage of : Antepartum Labor Evaluation Frequency: NONE Monitor Mode: External Datetime: 08/28/2018 02:05 Stage of : Antepartum Pain Presence: None/Denies Pain Type: N/A Pain Assessment Comments: PT SLEEPING WITH EVEN UNLABORED BREATHING. Datetime: 08/28/2018 01:30 Stage of : Antepartum Datetime: 08/28/2018 01:00 Stage of : Antepartum Labor Evaluation Frequency: NONE Monitor Mode: External Datetime: 08/28/2018 00:00 Stage of : Antepartum Labor Evaluation Frequency: NONE Monitor Mode: External Pain Presence: None/Denies Pain Type: N/A Datetime: 08/27/2018 23:25 Stage of : Antepartum Temperature Route: Oral Pain Presence: None/Denies Pain Type: N/A Datetime: 08/27/2018 23:00 Labor Evaluation Frequency: NONE Monitor Mode: External Resting Tone [place]: Relaxed Datetime: 08/27/2018 22:00 Labor Evaluation Frequency: NONE Monitor Mode: External Resting Tone [place]: Relaxed Pain Presence: None/Denies Pain Type: N/A Datetime: 08/27/2018 21:33 Stage of : Antepartum Datetime: 08/27/2018 20:38 Labor Evaluation Frequency: NONE Monitor Mode: External Resting Tone [place]: Relaxed Heart Rate FHR Baseline Rate: 140 Monitor Mode: External US Variability: Moderate 6-25 bpm Accelerations: 15X15 Decelerations: None Category: Category I Pain Presence: None/Denies Pain Type: N/A Datetime: 08/27/2018 19:36 Contraction Comments: PT DENIES CRAMPING Monitor Mode: External US Comments: APPLIED FOR NST Datetime: 08/27/2018 19:17 Stage of : Antepartum Assessment Type: Ongoing Assessment Maternal Assessment Level of Consciousness: Fully Conscious DTR's/Clonus: DTRs 2+; No Clonus Headache: Denies Blurred Vision: No Respiratory Effort: Unlabored; Regular Rhythm; Equal Expansion Breath Sounds, Left: Clear and Equal Breath Sounds, Right: Clear and Equal Nausea/Vomiting: Denies RUQ Epigastric Pain: Denies Lower Extremities Edema: None Degree: None Upper Extremities Edema: None Degree: None Facial Edema: None Temperature Route: Oral Fall Risk Assessment History of Falling: (0) No Secondary Diagnosis: (0) No Ambulatory Aid: (0) Bedrest/Nurse Assist IV Therapy: (0) No Gait: (0) Normal/Bedrest/Immobile Mental Status: (0) Oriented to Own Ability Fall Score: 0 Fall Risk Score Definition: No Risk: No action required Monitor Mode: External Contraction Comments: PT DENIES CRAMPING Comments: PT STATES + FM Pain Presence: None/Denies Pain Type: N/A Membrane Status: Intact Vaginal Bleeding: None Datetime: 08/27/2018 18:45 Pain Presence: None/Denies Datetime: 08/27/2018 18:00 Stage of : Antepartum Maternal Assessment Level of Consciousness: Fully Conscious Headache: Denies Nausea/Vomiting: Denies RUQ Epigastric Pain: Denies Resting Tone [place]: Relaxed Pain Assessment Pain Scale: 0 Pain Presence: None/Denies Vaginal Bleeding: None Datetime: 08/27/2018 17:00 Stage of : Antepartum Maternal Assessment Level of Consciousness: Fully Conscious Headache: Denies Nausea/Vomiting: Denies RUQ Epigastric Pain: Denies Resting Tone [place]: Relaxed Pain Assessment Pain Scale: 0 Pain Presence: None/Denies Vaginal Bleeding: None Datetime: 08/27/2018 16:14 Maternal Assessment Level of Consciousness: Fully Conscious Headache: Denies Blurred Vision: No Respiratory Effort: Unlabored Nausea/Vomiting: Denies RUQ Epigastric Pain: Denies Pain Presence: None/Denies Datetime: 08/27/2018 15:00 Stage of : Antepartum Maternal Assessment Level of Consciousness: Fully Conscious Headache: Denies Nausea/Vomiting: Denies RUQ Epigastric Pain: Denies Resting Tone [place]: Relaxed Pain Assessment Pain Scale: 0 Pain Presence: None/Denies Vaginal Bleeding: None Datetime: 08/27/2018 14:21 Pain Presence: None/Denies Datetime: 08/27/2018 14:00 Stage of : Antepartum Maternal Assessment Level of Consciousness: Fully Conscious Headache: Denies Nausea/Vomiting: Denies RUQ Epigastric Pain: Denies Resting Tone [place]: Relaxed Pain Assessment Pain Scale: 0 Pain Presence: None/Denies Vaginal Bleeding: None Datetime: 08/27/2018 13:33 Stage of : Antepartum Maternal Assessment Level of Consciousness: Fully Conscious Headache: Denies Blurred Vision: No Respiratory Effort: Unlabored Nausea/Vomiting: Denies RUQ Epigastric Pain: Denies Labor Evaluation Frequency: 0/hr Monitor Mode: External Pain Presence: None/Denies Datetime: 08/27/2018 12:10 Stage of : Antepartum Maternal Assessment Level of Consciousness: Fully Conscious Headache: Denies Nausea/Vomiting: Denies RUQ Epigastric Pain: Denies Labor Evaluation Frequency: 0/hr Monitor Mode: External Pain Presence: None/Denies Datetime: 08/27/2018 11:16 Stage of : Antepartum Maternal Assessment Level of Consciousness: Fully Conscious Headache: Denies Nausea/Vomiting: Denies RUQ Epigastric Pain: Denies Temperature Route: Oral Resting Tone [place]: Relaxed Pain Assessment Pain Scale: 0 Pain Presence: None/Denies Membrane Status: Intact Vaginal Bleeding: None Datetime: 08/27/2018 10:30 Pain Presence: None/Denies Datetime: 08/27/2018 10:15 Stage of : Antepartum Maternal Assessment Level of Consciousness: Fully Conscious Headache: Denies Nausea/Vomiting: Denies RUQ Epigastric Pain: Denies Labor Evaluation Frequency: 0/hr Monitor Mode: External Pain Presence: None/Denies Datetime: 08/27/2018 09:15 Stage of : Antepartum Maternal Assessment Level of Consciousness: Fully Conscious Headache: Denies Nausea/Vomiting: Denies RUQ Epigastric Pain: Denies Labor Evaluation Frequency: 0/hr Monitor Mode: External Pain Presence: None/Denies Datetime: 08/27/2018 08:44 Pain Presence: None/Denies Datetime: 08/27/2018 07:13 Stage of : Antepartum Maternal Assessment Level of Consciousness: Fully Conscious Headache: Denies Blurred Vision: No Respiratory Effort: Unlabored Nausea/Vomiting: Denies RUQ Epigastric Pain: Denies Pain Presence: None/Denies Datetime: 08/27/2018 06:05 Maternal Assessment Level of Consciousness: Fully Conscious Headache: Denies Blurred Vision: No Respiratory Effort: Unlabored; Regular Rhythm; Equal Expansion Breath Sounds, Left: Clear and Equal Breath Sounds, Right: Clear and Equal Datetime: 08/27/2018 06:00 Labor Evaluation Frequency: 0 Monitor Mode: External Duration (sec)2399: denies Resting Tone [place]: Relaxed Pain Presence: None/Denies Datetime: 08/27/2018 05:00 Labor Evaluation Frequency: 0 Monitor Mode: External Duration (sec)2399: denies Resting Tone [place]: Relaxed Pain Presence: None/Denies Datetime: 08/27/2018 04:00 Labor Evaluation Frequency: 0 Monitor Mode: External Duration (sec)2399: denies Resting Tone [place]: Relaxed Pain Presence: None/Denies Datetime: 08/27/2018 03:00 Labor Evaluation Frequency: 0 Monitor Mode: External Resting Tone [place]: Relaxed Datetime: 08/27/2018 02:00 Labor Evaluation Frequency: 0 Monitor Mode: External Resting Tone [place]: Relaxed Datetime: 08/27/2018 01:00 Labor Evaluation Frequency: 0 Monitor Mode: External Resting Tone [place]: Relaxed Pain Presence: None/Denies Datetime: 08/27/2018 00:00 Labor Evaluation Frequency: 0 Monitor Mode: External Resting Tone [place]: Relaxed Pain Presence: None/Denies Datetime: 08/26/2018 23:02 Labor Evaluation Frequency: 0 Monitor Mode: External Resting Tone [place]: Relaxed Heart Rate FHR Baseline Rate: 140 Monitor Mode: External US Variability: Moderate 6-25 bpm Accelerations: 15X15 Decelerations: None Category: Category I Comments: nst done. Pain Presence: None/Denies Datetime: 08/26/2018 22:12 Monitor Mode: External US Comments: PLACED NST STARTED. Datetime: 08/26/2018 22:00 Labor Evaluation Frequency: 0 Monitor Mode: External Duration (sec)2399: DENIES Resting Tone [place]: Relaxed Pain Presence: None/Denies Datetime: 08/26/2018 21:00 Labor Evaluation Frequency: 0 Monitor Mode: External Duration (sec)2399: DENIES Resting Tone [place]: Relaxed Pain Presence: None/Denies Datetime: 08/26/2018 20:00 Labor Evaluation Frequency: 0 Monitor Mode: External Duration (sec)2399: denies Resting Tone [place]: Relaxed Pain Presence: None/Denies Datetime: 08/26/2018 19:22 Stage of : Antepartum Assessment Type: Ongoing Assessment Maternal Assessment Level of Consciousness: Fully Conscious DTR's/Clonus: DTRs 2+; No Clonus Headache: Denies Blurred Vision: No Respiratory Effort: Unlabored; Regular Rhythm; Equal Expansion Breath Sounds, Left: Clear and Equal Breath Sounds, Right: Clear and Equal Nausea/Vomiting: Denies RUQ Epigastric Pain: Denies Lower Extremities Edema: None Degree: None Upper Extremities Edema: None Degree: None Facial Edema: None Temperature Route: Oral Fall Risk Assessment History of Falling: (0) No Secondary Diagnosis: (0) No Ambulatory Aid: (0) Bedrest/Nurse Assist IV Therapy: (0) No Gait: (0) Normal/Bedrest/Immobile Mental Status: (0) Oriented to Own Ability Fall Score: 0 Fall Risk Score Definition: No Risk: No action required Pain Presence: None/Denies Datetime: 08/26/2018 19:05 Stage of : Antepartum Maternal Assessment Level of Consciousness: Fully Conscious Headache: Denies Nausea/Vomiting: Denies RUQ Epigastric Pain: Denies Labor Evaluation Frequency: 0/hr Monitor Mode: External Pain Assessment Pain Scale: 0 Pain Presence: None/Denies Vaginal Bleeding: None Datetime: 08/26/2018 18:00 Stage of : Antepartum Maternal Assessment Level of Consciousness: Fully Conscious Headache: Denies Nausea/Vomiting: Denies RUQ Epigastric Pain: Denies Labor Evaluation Frequency: 0/hr Monitor Mode: External Pain Assessment Pain Scale: 0 Pain Presence: None/Denies Vaginal Bleeding: None Datetime: 08/26/2018 17:53 Pain Presence: None/Denies Datetime: 08/26/2018 17:01 Stage of : Antepartum Maternal Assessment Level of Consciousness: Fully Conscious Headache: Denies Nausea/Vomiting: Denies RUQ Epigastric Pain: Denies Labor Evaluation Frequency: 0/hr Monitor Mode: External Pain Assessment Pain Scale: 0 Pain Presence: None/Denies Vaginal Bleeding: None Datetime: 08/26/2018 16:00 Stage of : Antepartum Maternal Assessment Level of Consciousness: Fully Conscious Headache: Denies Nausea/Vomiting: Denies RUQ Epigastric Pain: Denies Labor Evaluation Frequency: 0/hr Monitor Mode: External Pain Assessment Pain Scale: 0 Pain Presence: None/Denies Vaginal Bleeding: None Datetime: 08/26/2018 15:50 Maternal Assessment Level of Consciousness: Fully Conscious Headache: Denies Blurred Vision: No Respiratory Effort: Unlabored Nausea/Vomiting: Denies RUQ Epigastric Pain: Denies Pain Presence: None/Denies Datetime: 08/26/2018 14:59 Maternal Assessment Level of Consciousness: Fully Conscious Headache: Denies Blurred Vision: No Respiratory Effort: Unlabored Nausea/Vomiting: Denies RUQ Epigastric Pain: Denies Pain Presence: None/Denies Datetime: 08/26/2018 14:38 Time of Arrival: 08/26/2018 14:00 EGA: 27.3 Datetime: 08/26/2018 14:31 Stage of : Antepartum Maternal Assessment Level of Consciousness: Fully Conscious Headache: Denies Nausea/Vomiting: Denies RUQ Epigastric Pain: Denies Labor Evaluation Frequency: 0/hr Monitor Mode: External Pain Assessment Pain Scale: 0 Pain Presence: None/Denies Vaginal Bleeding: None Datetime: 08/26/2018 13:18 Monitor Mode: External Resting Tone [place]: Relaxed Pain Presence: None/Denies Datetime: 08/26/2018 13:00 Stage of : Antepartum Maternal Assessment Level of Consciousness: Fully Conscious Headache: Denies Nausea/Vomiting: Denies RUQ Epigastric Pain: Denies Labor Evaluation Frequency: 0/hr Monitor Mode: External Pain Assessment Pain Scale: 0 Pain Presence: None/Denies Vaginal Bleeding: None Datetime: 08/26/2018 12:52 Monitor Mode: External Resting Tone [place]: Relaxed Contraction Comments: pt. lft. lat. and denies any S_S of ptl Pain Presence: None/Denies Datetime: 08/26/2018 12:00 Stage of : Antepartum Maternal Assessment Level of Consciousness: Fully Conscious Headache: Denies Nausea/Vomiting: Denies RUQ Epigastric Pain: Denies Labor Evaluation Frequency: 0/hr Monitor Mode: External Heart Rate FHR Baseline Rate: 140 Monitor Mode: External US Variability: Moderate 6-25 bpm Accelerations: 15X15 Decelerations: None Comments: fht's q shift and approp. for ega of 27.3 Pain Assessment Pain Scale: 0 Pain Presence: None/Denies Vaginal Bleeding: None Datetime: 08/26/2018 11:48 Pain Presence: None/Denies Datetime: 08/26/2018 11:30 Stage of : Antepartum Maternal Assessment Level of Consciousness: Fully Conscious Headache: Denies Nausea/Vomiting: Denies RUQ Epigastric Pain: Denies Labor Evaluation Frequency: 0/hr Monitor Mode: External Heart Rate FHR Baseline Rate: 140 Monitor Mode: External US Variability: Moderate 6-25 bpm Accelerations: 15X15 Decelerations: None Pain Assessment Pain Scale: 0 Pain Presence: None/Denies Vaginal Bleeding: None Datetime: 08/26/2018 11:14 Resting Tone [place]: Relaxed Monitor Mode: External US Datetime: 08/26/2018 10:02 Pain Presence: None/Denies Datetime: 08/26/2018 10:00 Stage of : Antepartum Labor Evaluation Frequency: 0/hr Monitor Mode: External Pain Presence: None/Denies Datetime: 08/26/2018 09:00 Stage of : Antepartum Labor Evaluation Frequency: 0/hr Monitor Mode: External Pain Presence: None/Denies Datetime: 08/26/2018 08:30 Maternal Assessment Level of Consciousness: Fully Conscious Headache: Denies Respiratory Effort: Unlabored Nausea/Vomiting: Denies Pain Presence: None/Denies Datetime: 08/26/2018 08:00 Stage of : Antepartum Labor Evaluation Frequency: 0/hr Monitor Mode: External Pain Presence: None/Denies Datetime: 08/26/2018 07:16 Assessment Type: Ongoing Assessment Maternal Assessment Level of Consciousness: Fully Conscious Maternal Assessment Level of Consciousness: Fully Conscious DTR's/Clonus: DTRs 2+; No Clonus Headache: Denies Headache: Denies Blurred Vision: No Blurred Vision: No Respiratory Effort: Unlabored; Regular Rhythm; Equal Expansion Breath Sounds, Left: Clear and Equal Breath Sounds, Right: Clear and Equal Nausea/Vomiting: Denies Nausea/Vomiting: Denies RUQ Epigastric Pain: Denies RUQ Epigastric Pain: Denies Lower Extremities Edema: None Upper Extremities Edema: None Facial Edema: None Fall Risk Assessment History of Falling: (0) No Secondary Diagnosis: (0) No Ambulatory Aid: (0) Bedrest/Nurse Assist IV Therapy: (0) No Gait: (0) Normal/Bedrest/Immobile Mental Status: (0) Oriented to Own Ability Fall Score: 0 Fall Risk Score Definition: No Risk: No action required Resting Tone [place]: Relaxed Contraction Comments: pt. denies any S_S of ptl Pain Presence: None/Denies Datetime: 08/26/2018 06:30 Labor Evaluation Frequency: 0 Monitor Mode: External Duration (sec)2399: DENIES Resting Tone [place]: Relaxed Pain Presence: None/Denies Datetime: 08/26/2018 05:30 Labor Evaluation Frequency: 0 Monitor Mode: External Duration (sec)2399: denies Resting Tone [place]: Relaxed Pain Presence: None/Denies Datetime: 08/26/2018 05:08 Temperature Route: Oral Pain Presence: None/Denies Datetime: 08/26/2018 04:30 Labor Evaluation Frequency: 0 Monitor Mode: External Duration (sec)2399: denies Resting Tone [place]: Relaxed Pain Presence: None/Denies Datetime: 08/26/2018 03:30 Labor Evaluation Frequency: 0 Monitor Mode: External Duration (sec)2399: denies Resting Tone [place]: Relaxed Pain Presence: None/Denies Datetime: 08/26/2018 02:30 Labor Evaluation Frequency: 0 Monitor Mode: External Duration (sec)2399: denies Resting Tone [place]: Relaxed Pain Presence: None/Denies Datetime: 08/26/2018 01:30 Labor Evaluation Frequency: 0 Monitor Mode: External Resting Tone [place]: Relaxed Pain Presence: None/Denies Datetime: 08/26/2018 00:30 Labor Evaluation Frequency: 0 Monitor Mode: External Duration (sec)2399: denies Resting Tone [place]: Relaxed Pain Presence: None/Denies Datetime: 08/25/2018 23:30 Labor Evaluation Frequency: 0 Monitor Mode: External Duration (sec)2399: denies Resting Tone [place]: Relaxed Heart Rate FHR Baseline Rate: 140 Monitor Mode: External US Variability: Moderate 6-25 bpm Accelerations: 15X15 Decelerations: None Comments: nst done,appropriated for ga. Pain Presence: None/Denies Datetime: 08/25/2018 22:48 Monitor Mode: External US Comments: placed nst started. Datetime: 08/25/2018 22:30 Labor Evaluation Frequency: 0 Monitor Mode: External Duration (sec)2399: denies Resting Tone [place]: Relaxed Pain Presence: None/Denies Datetime: 08/25/2018 21:30 Labor Evaluation Frequency: 0 Monitor Mode: External Duration (sec)2399: DENIES Resting Tone [place]: Relaxed Pain Presence: None/Denies Datetime: 08/25/2018 20:30 Labor Evaluation Frequency: 0 Monitor Mode: External Duration (sec)2399: DENIES Resting Tone [place]: Relaxed Pain Presence: None/Denies Datetime: 08/25/2018 19:30 Labor Evaluation Frequency: 0 Monitor Mode: External Duration (sec)2399: DENIES Resting Tone [place]: Relaxed Pain Presence: None/Denies Datetime: 08/25/2018 19:23 Stage of : Antepartum Assessment Type: Ongoing Assessment Maternal Assessment Level of Consciousness: Fully Conscious DTR's/Clonus: DTRs 2+; No Clonus Headache: Denies Blurred Vision: No Respiratory Effort: Unlabored; Regular Rhythm; Equal Expansion Breath Sounds, Left: Clear and Equal Breath Sounds, Right: Clear and Equal Nausea/Vomiting: Denies RUQ Epigastric Pain: Denies Lower Extremities Edema: None Degree: None Upper Extremities Edema: None Degree: None Facial Edema: None Temperature Route: Oral Fall Risk Assessment History of Falling: (0) No Secondary Diagnosis: (0) No Ambulatory Aid: (0) Bedrest/Nurse Assist IV Therapy: (0) No Gait: (0) Normal/Bedrest/Immobile Mental Status: (0) Oriented to Own Ability Fall Score: 0 Fall Risk Score Definition: No Risk: No action required Datetime: 08/25/2018 18:29 Labor Evaluation Frequency: 0 Monitor Mode: External Pattern: Normal: <= 5 Contractions in 10 Minutes Resting Tone [place]: Relaxed Comments: REMOVED DUE TO ORDER Pain Assessment Pain Scale: 0 Pain Presence: None/Denies Pain Type: N/A Pain Goal: 3 Pain Relief Measures: Comfort Measures Datetime: 08/25/2018 17:27 Labor Evaluation Frequency: 0 Monitor Mode: External Pattern: Normal: <= 5 Contractions in 10 Minutes Resting Tone [place]: Relaxed Comments: removed per order Pain Assessment Pain Scale: 0 Pain Presence: None/Denies Pain Type: N/A Pain Goal: 3 Pain Relief Measures: Comfort Measures Datetime: 08/25/2018 16:28 Labor Evaluation Frequency: 0 Monitor Mode: External Pattern: Normal: <= 5 Contractions in 10 Minutes Resting Tone [place]: Relaxed Comments: REMOVED PER ORDER Pain Assessment Pain Scale: 0 Pain Presence: None/Denies Pain Type: N/A Pain Goal: 3 Pain Relief Measures: Comfort Measures Datetime: 08/25/2018 15:30 Labor Evaluation Frequency: 0 Monitor Mode: External Pattern: Normal: <= 5 Contractions in 10 Minutes Resting Tone [place]: Relaxed Pain Assessment Pain Scale: 0 Pain Presence: None/Denies Pain Type: N/A Pain Goal: 3 Pain Relief Measures: Comfort Measures Datetime: 08/25/2018 14:30 Labor Evaluation Frequency: 0 Monitor Mode: External Pattern: Normal: <= 5 Contractions in 10 Minutes Resting Tone [place]: Relaxed Comments: removed per order Pain Assessment Pain Scale: 0 Pain Presence: None/Denies Pain Type: N/A Pain Goal: 3 Pain Relief Measures: Comfort Measures Datetime: 08/25/2018 13:33 Labor Evaluation Frequency: 0 Monitor Mode: External Pattern: Normal: <= 5 Contractions in 10 Minutes Resting Tone [place]: Relaxed Comments: removed per order Pain Assessment Pain Scale: 0 Pain Presence: None/Denies Pain Type: N/A Pain Goal: 3 Pain Relief Measures: Comfort Measures Datetime: 08/25/2018 12:29 Labor Evaluation Frequency: 0 Monitor Mode: External Pattern: Normal: <= 5 Contractions in 10 Minutes Resting Tone [place]: Relaxed Comments: REMOVED PER ORDER Pain Assessment Pain Scale: 0 Pain Presence: None/Denies Pain Type: N/A Pain Goal: 3 Pain Relief Measures: Comfort Measures Datetime: 08/25/2018 11:22 Labor Evaluation Frequency: 0 Monitor Mode: External Resting Tone [place]: Relaxed Comments: REMOVED PER ORDER Pain Assessment Pain Scale: 0 Pain Goal: 3 Datetime: 08/25/2018 10:21 Labor Evaluation Frequency: 0 Monitor Mode: External Resting Tone [place]: Relaxed Comments: REMOVED PER ORDER Pain Assessment Pain Scale: 0 Pain Presence: None/Denies Pain Type: N/A Pain Goal: 3 Pain Relief Measures: Comfort Measures Datetime: 08/25/2018 09:17 Labor Evaluation Frequency: 0 Monitor Mode: External Pattern: Normal: <= 5 Contractions in 10 Minutes Resting Tone [place]: Relaxed Comments: REMOVED PER ORDER Pain Assessment Pain Scale: 0 Pain Presence: None/Denies Pain Type: N/A Pain Goal: 3 Pain Relief Measures: Comfort Measures Datetime: 08/25/2018 08:50 Comments: REMOVED AFTER NST OBTAINED, TOCO REMAINS Datetime: 08/25/2018 08:36 Stage of : Antepartum Datetime: 08/25/2018 08:20 Maternal Assessment Level of Consciousness: Fully Conscious DTR's/Clonus: DTRs Absent Headache: Denies Breath Sounds, Left: Clear and Equal Breath Sounds, Right: Clear and Equal Nausea/Vomiting: Denies RUQ Epigastric Pain: Denies Labor Evaluation Frequency: 0 Monitor Mode: External Pattern: Normal: <= 5 Contractions in 10 Minutes Resting Tone [place]: Relaxed Heart Rate FHR Baseline Rate: 135 Monitor Mode: External US Variability: Moderate 6-25 bpm Accelerations: 10X10 Decelerations: None Category: Category I Pain Assessment Pain Scale: 0 Pain Presence: None/Denies Pain Type: N/A Pain Goal: 3 Pain Relief Measures: Comfort Measures Datetime: 08/25/2018 08:11 Stage of : Antepartum Temperature Route: Oral Pain Assessment Pain Scale: 3 Pain Presence: None/Denies Pain Type: N/A Pain Goal: 0 Pain Relief Measures: Comfort Measures Datetime: 08/25/2018 08:06 Assessment Type: Ongoing Assessment Maternal Assessment Level of Consciousness: Fully Conscious Maternal Assessment Level of Consciousness: Fully Conscious DTR's/Clonus: DTRs 2+; No Clonus Headache: Denies Blurred Vision: No Respiratory Effort: Unlabored; Regular Rhythm; Equal Expansion Breath Sounds, Left: Clear and Equal Breath Sounds, Right: Clear and Equal Nausea/Vomiting: Denies RUQ Epigastric Pain: Denies Upper Extremities Edema: None Facial Edema: None Fall Risk Assessment History of Falling: (0) No Secondary Diagnosis: (0) No Ambulatory Aid: (0) Bedrest/Nurse Assist IV Therapy: (0) No Gait: (0) Normal/Bedrest/Immobile Mental Status: (0) Oriented to Own Ability Fall Score: 0 Fall Risk Score Definition: No Risk: No action required Datetime: 08/25/2018 07:00 Labor Evaluation Frequency: 0 Monitor Mode: External Datetime: 08/25/2018 06:00 Labor Evaluation Frequency: 0 Monitor Mode: External Datetime: 08/25/2018 05:00 Labor Evaluation Frequency: 0 Monitor Mode: External Datetime: 08/25/2018 04:00 Labor Evaluation Frequency: 0 Monitor Mode: External Datetime: 08/25/2018 03:00 Labor Evaluation Frequency: 0 Monitor Mode: External Datetime: 08/25/2018 02:00 Labor Evaluation Frequency: 0 Monitor Mode: External Datetime: 08/25/2018 01:00 Labor Evaluation Frequency: 0 Monitor Mode: External Datetime: 08/25/2018 00:00 Labor Evaluation Frequency: 0 Monitor Mode: External Datetime: 08/24/2018 23:04 Temperature Route: Oral Pain Assessment Pain Scale: 0 Pain Presence: None/Denies Datetime: 08/24/2018 23:00 Labor Evaluation Frequency: 0 Monitor Mode: External Datetime: 08/24/2018 22:00 Labor Evaluation Frequency: 0 Monitor Mode: External Datetime: 08/24/2018 21:00 Labor Evaluation Frequency: 0 Monitor Mode: External Datetime: 08/24/2018 20:14 Labor Evaluation Frequency: 0 Monitor Mode: External Heart Rate FHR Baseline Rate: 140 Monitor Mode: External US FHR Baseline Changes: No Baseline Change Variability: Moderate 6-25 bpm Accelerations: 15X15 Decelerations: Variable Category: Category I Comments: AGA 27 WKS. Datetime: 08/24/2018 20:00 Labor Evaluation Frequency: 0 Monitor Mode: External Datetime: 08/24/2018 19:39 Comments: NST STARTED Datetime: 08/24/2018 19:35 Assessment Type: Ongoing Assessment Maternal Assessment Level of Consciousness: Fully Conscious Headache: Denies Blurred Vision: No Respiratory Effort: Unlabored; Regular Rhythm; Equal Expansion Nausea/Vomiting: Denies RUQ Epigastric Pain: Denies Lower Extremities Edema: None Upper Extremities Edema: None Facial Edema: None Fall Risk Assessment History of Falling: (0) No Secondary Diagnosis: (0) No Ambulatory Aid: (0) Bedrest/Nurse Assist IV Therapy: (0) No Gait: (0) Normal/Bedrest/Immobile Mental Status: (0) Oriented to Own Ability Fall Score: 0 Fall Risk Score Definition: No Risk: No action required Datetime: 08/24/2018 19:33 Temperature Route: Oral Pain Assessment Pain Scale: 0 Pain Presence: None/Denies Datetime: 08/24/2018 19:00 Stage of : Antepartum Labor Evaluation Frequency: 0 Monitor Mode: External Resting Tone [place]: Relaxed Pain Assessment Pain Scale: 0 Pain Presence: None/Denies Pain Type: N/A Pain Goal: 0 Datetime: 08/24/2018 18:00 Stage of : Antepartum Labor Evaluation Frequency: 0 Monitor Mode: External Resting Tone [place]: Relaxed Pain Assessment Pain Scale: 0 Pain Presence: None/Denies Pain Type: N/A Pain Goal: 0 Datetime: 08/24/2018 17:00 Stage of : Antepartum Labor Evaluation Frequency: 0 Monitor Mode: External Resting Tone [place]: Relaxed Pain Assessment Pain Scale: 0 Pain Presence: None/Denies Pain Type: N/A Pain Goal: 0 Datetime: 08/24/2018 16:00 Stage of : Antepartum Labor Evaluation Frequency: 0 Monitor Mode: External Resting Tone [place]: Relaxed Pain Assessment Pain Scale: 0 Pain Presence: None/Denies Pain Type: N/A Pain Goal: 0 Datetime: 08/24/2018 15:00 Stage of : Antepartum Labor Evaluation Frequency: 0 Monitor Mode: External Resting Tone [place]: Relaxed Pain Assessment Pain Scale: 0 Pain Presence: None/Denies Pain Type: N/A Pain Goal: 0 Datetime: 08/24/2018 14:00 Stage of : Antepartum Labor Evaluation Frequency: 0 Monitor Mode: External Resting Tone [place]: Relaxed Pain Assessment Pain Scale: 0 Pain Presence: None/Denies Pain Type: N/A Pain Goal: 0 Datetime: 08/24/2018 13:00 Stage of : Antepartum Labor Evaluation Frequency: 0 Monitor Mode: External Resting Tone [place]: Relaxed Pain Assessment Pain Scale: 0 Pain Presence: None/Denies Pain Type: N/A Pain Goal: 0 Datetime: 08/24/2018 12:00 Stage of : Antepartum Labor Evaluation Frequency: 0 Monitor Mode: External Resting Tone [place]: Relaxed Pain Assessment Pain Scale: 0 Pain Presence: None/Denies Pain Type: N/A Pain Goal: 0 Datetime: 08/24/2018 11:00 Stage of : Antepartum Labor Evaluation Frequency: 0 Monitor Mode: External Resting Tone [place]: Relaxed Pain Assessment Pain Scale: 0 Pain Presence: None/Denies Pain Type: N/A Pain Goal: 0 Datetime: 08/24/2018 10:21 Stage of : Antepartum Heart Rate FHR Baseline Rate: 140 Monitor Mode: External US Variability: Moderate 6-25 bpm Decelerations: None Comments: monitor off Pain Assessment Pain Scale: 0 Pain Presence: None/Denies Pain Type: N/A Datetime: 08/24/2018 09:51 Stage of : Antepartum Temperature Route: Oral Datetime: 08/24/2018 09:49 Comments: fhts started Datetime: 08/24/2018 09:00 Stage of : Antepartum Labor Evaluation Frequency: 0 Monitor Mode: External Resting Tone [place]: Relaxed Pain Assessment Pain Scale: 0 Pain Presence: None/Denies Pain Type: N/A Membrane Status: Intact Datetime: 08/24/2018 08:24 Assessment Type: Ongoing Assessment Maternal Assessment Level of Consciousness: Fully Conscious DTR's/Clonus: DTRs 2+; No Clonus Headache: Denies Blurred Vision: No Respiratory Effort: Unlabored; Regular Rhythm; Equal Expansion Breath Sounds, Left: Clear and Equal Breath Sounds, Right: Clear and Equal Nausea/Vomiting: Denies RUQ Epigastric Pain: Denies Lower Extremities Edema: None Upper Extremities Edema: None Facial Edema: None Fall Risk Assessment History of Falling: (0) No Secondary Diagnosis: (0) No Ambulatory Aid: (0) Bedrest/Nurse Assist IV Therapy: (0) No Gait: (0) Normal/Bedrest/Immobile Mental Status: (0) Oriented to Own Ability Fall Score: 0 Fall Risk Score Definition: No Risk: No action required Datetime: 08/24/2018 08:00 Stage of : Antepartum Labor Evaluation Frequency: 0 Monitor Mode: External Resting Tone [place]: Relaxed Pain Assessment Pain Scale: 0 Pain Presence: None/Denies Pain Type: N/A Pain Assessment Comments: ABDOMEN SOFT ON PALPATION. DENIES PAIN AT THIS TIME Membrane Status: Intact Datetime: 08/24/2018 07:30 Stage of : Antepartum Datetime: 08/24/2018 07:00 Labor Evaluation Frequency: none Monitor Mode: External Resting Tone [place]: Relaxed Datetime: 08/24/2018 06:00 Labor Evaluation Frequency: none Monitor Mode: External Resting Tone [place]: Relaxed Datetime: 08/24/2018 05:57 Stage of : Antepartum Temperature Route: Oral Pain Assessment Pain Scale: 0 Pain Presence: None/Denies Pain Goal: 0 Datetime: 08/24/2018 05:00 Labor Evaluation Frequency: none Monitor Mode: External Resting Tone [place]: Relaxed Datetime: 08/24/2018 04:00 Labor Evaluation Frequency: none Monitor Mode: External Resting Tone [place]: Relaxed Datetime: 08/24/2018 03:00 Labor Evaluation Frequency: none Monitor Mode: External Resting Tone [place]: Relaxed Datetime: 08/24/2018 02:00 Labor Evaluation Frequency: none Monitor Mode: External Resting Tone [place]: Relaxed Datetime: 08/24/2018 01:00 Labor Evaluation Frequency: none Monitor Mode: External Resting Tone [place]: Relaxed Datetime: 08/24/2018 00:00 Labor Evaluation Frequency: none Monitor Mode: External Resting Tone [place]: Relaxed Datetime: 08/23/2018 23:35 Stage of : Antepartum Temperature Route: Oral Pain Assessment Pain Scale: 0 Pain Presence: None/Denies Pain Goal: 0 Datetime: 08/23/2018 23:00 Labor Evaluation Frequency: none Monitor Mode: External Resting Tone [place]: Relaxed Datetime: 08/23/2018 22:00 Labor Evaluation Frequency: none Monitor Mode: External Resting Tone [place]: Relaxed Datetime: 08/23/2018 21:43 Labor Evaluation Frequency: none Monitor Mode: External Resting Tone [place]: Relaxed Heart Rate FHR Baseline Rate: 140 Monitor Mode: External US FHR Baseline Changes: No Baseline Change Variability: Moderate 6-25 bpm Accelerations: 15X15 Decelerations: Variable Comments: FHR reactive and reassuring with +FM. Datetime: 08/23/2018 21:00 Labor Evaluation Frequency: none Monitor Mode: External Resting Tone [place]: Relaxed Datetime: 08/23/2018 20:40 Comments: EFM on. +FM noted. Datetime: 08/23/2018 20:29 Assessment Type: Ongoing Assessment Maternal Assessment Level of Consciousness: Fully Conscious DTR's/Clonus: DTRs 2+; No Clonus Headache: Denies Blurred Vision: No Respiratory Effort: Unlabored; Regular Rhythm; Equal Expansion Breath Sounds, Left: Clear and Equal Breath Sounds, Right: Clear and Equal Nausea/Vomiting: Denies RUQ Epigastric Pain: Denies Lower Extremities Edema: Left Lower Extremity Degree: 1+ Upper Extremities Edema: None Degree: None Facial Edema: None Fall Risk Assessment History of Falling: (0) No Secondary Diagnosis: (0) No Ambulatory Aid: (0) Bedrest/Nurse Assist IV Therapy: (0) No Gait: (0) Normal/Bedrest/Immobile Mental Status: (0) Oriented to Own Ability Fall Score: 0 Fall Risk Score Definition: No Risk: No action required Datetime: 08/23/2018 20:28 Stage of : Antepartum Temperature Route: Oral Pain Assessment Pain Scale: 0 Pain Presence: None/Denies Pain Goal: 0 Datetime: 08/23/2018 20:00 Labor Evaluation Frequency: none Monitor Mode: External Resting Tone [place]: Relaxed Datetime: 08/23/2018 19:30 Stage of : Antepartum Labor Evaluation Frequency: 0 Monitor Mode: External Datetime: 08/23/2018 19:00 Stage of : Antepartum Labor Evaluation Frequency: 0 Monitor Mode: External Duration (sec)2399: 0 Resting Tone [place]: Relaxed Pain Assessment Pain Scale: 0 Pain Presence: None/Denies Pain Type: N/A Datetime: 08/23/2018 18:00 Stage of : Antepartum Labor Evaluation Frequency: 0 Monitor Mode: External Resting Tone [place]: Relaxed Pain Assessment Pain Scale: 0 Pain Presence: None/Denies Pain Type: N/A Datetime: 08/23/2018 17:00 Stage of : Antepartum Labor Evaluation Frequency: 0 Monitor Mode: External Resting Tone [place]: Relaxed Pain Assessment Pain Scale: 0 Pain Presence: None/Denies Pain Type: N/A Datetime: 08/23/2018 16:00 Stage of : Antepartum Labor Evaluation Frequency: 0 Monitor Mode: External Pain Assessment Pain Scale: 0 Pain Presence: None/Denies Pain Type: N/A Datetime: 08/23/2018 15:00 Stage of : Antepartum Labor Evaluation Frequency: 0 Monitor Mode: External Pain Assessment Pain Scale: 0 Pain Presence: None/Denies Pain Type: N/A Datetime: 08/23/2018 14:00 Stage of : Antepartum Labor Evaluation Frequency: 0 Monitor Mode: External Pain Assessment Pain Scale: 0 Pain Presence: None/Denies Pain Type: N/A Datetime: 08/23/2018 13:00 Stage of : Antepartum Labor Evaluation Frequency: 0 Monitor Mode: External Pain Assessment Pain Scale: 0 Pain Presence: None/Denies Pain Type: N/A Datetime: 08/23/2018 12:50 Labor Evaluation Frequency: 0 Heart Rate FHR Baseline Rate: 150 Monitor Mode: External US Variability: Moderate 6-25 bpm Accelerations: 10X10 Decelerations: Variable Category: Category II Comments: fht's moderate reggie with one reggie decel noted lasting 10s to the 130's, otherwise cat 1 str ip Datetime: 08/23/2018 12:20 Monitor Mode: External US Datetime: 08/23/2018 12:00 Stage of : Antepartum Labor Evaluation Frequency: 0 Monitor Mode: External Pain Assessment Pain Scale: 0 Pain Presence: None/Denies Pain Type: N/A Datetime: 08/23/2018 11:00 Stage of : Antepartum Labor Evaluation Frequency: 0 Monitor Mode: External Pain Assessment Pain Scale: 0 Pain Presence: None/Denies Pain Type: N/A Datetime: 08/23/2018 10:00 Stage of : Antepartum Labor Evaluation Frequency: 0 Monitor Mode: External Datetime: 08/23/2018 09:00 Stage of : Antepartum Labor Evaluation Frequency: 0 Monitor Mode: External Contraction Comments: PT DENIES PAIN OR CTX'S AT THIS TIME Datetime: 08/23/2018 08:45 Stage of : Antepartum Maternal Assessment Level of Consciousness: Fully Conscious DTR's/Clonus: DTRs 2+; No Clonus Headache: Denies Breath Sounds, Left: Clear and Equal Breath Sounds, Right: Clear and Equal Nausea/Vomiting: Denies RUQ Epigastric Pain: Denies Pain Assessment Pain Scale: 0 Pain Presence: None/Denies Pain Type: N/A Datetime: 08/23/2018 08:00 Stage of : Antepartum Assessment Type: Ongoing Assessment Maternal Assessment Level of Consciousness: Fully Conscious DTR's/Clonus: DTRs 2+; No Clonus Headache: Denies Blurred Vision: No Respiratory Effort: Unlabored; Regular Rhythm; Equal Expansion Breath Sounds, Left: Clear and Equal Breath Sounds, Right: Clear and Equal Nausea/Vomiting: Denies RUQ Epigastric Pain: Denies Facial Edema: None Fall Risk Assessment History of Falling: (0) No Secondary Diagnosis: (0) No Ambulatory Aid: (0) Bedrest/Nurse Assist IV Therapy: (0) No Gait: (0) Normal/Bedrest/Immobile Mental Status: (0) Oriented to Own Ability Fall Score: 0 Fall Risk Score Definition: No Risk: No action required Labor Evaluation Frequency: 0 Monitor Mode: External Datetime: 08/23/2018 07:00 Labor Evaluation Frequency: 0 Monitor Mode: External Datetime: 08/23/2018 06:00 Labor Evaluation Frequency: 0 Monitor Mode: External Datetime: 08/23/2018 05:00 Labor Evaluation Frequency: 0 Monitor Mode: External Datetime: 08/23/2018 04:00 Maternal Assessment Level of Consciousness: SLEEPING SOUNDLY LEFT TILT Labor Evaluation Frequency: 0 Monitor Mode: External Datetime: 08/23/2018 03:00 Labor Evaluation Frequency: 0 Monitor Mode: External Datetime: 08/23/2018 02:00 Labor Evaluation Frequency: 0 Monitor Mode: External Datetime: 08/23/2018 01:00 Labor Evaluation Frequency: 0 Monitor Mode: External Datetime: 08/23/2018 00:00 Labor Evaluation Frequency: 0 Monitor Mode: External Datetime: 08/22/2018 23:00 Labor Evaluation Frequency: 0 Monitor Mode: External Datetime: 08/22/2018 22:00 Labor Evaluation Frequency: 0 Monitor Mode: External Datetime: 08/22/2018 21:44 Labor Evaluation Frequency: 0 Monitor Mode: External Heart Rate FHR Baseline Rate: 140 Monitor Mode: External US FHR Baseline Changes: No Baseline Change Variability: Moderate 6-25 bpm Accelerations: 15X15 Decelerations: None Category: Category I Datetime: 08/22/2018 21:06 Comments: MANY ATTEMPTS TO GET SOLID TRACING FOR NST D.T MATERNAL OBESITY AND PREMATURE BRRECH FETU S. Datetime: 08/22/2018 19:25 Maternal Assessment Level of Consciousness: Fully Conscious Headache: Denies Blurred Vision: No Respiratory Effort: Unlabored; Regular Rhythm; Equal Expansion Nausea/Vomiting: Denies RUQ Epigastric Pain: Denies Lower Extremities Edema: None Upper Extremities Edema: None Facial Edema: None Temperature Route: Oral Fall Risk Assessment History of Falling: (0) No Secondary Diagnosis: (0) No Ambulatory Aid: (0) Bedrest/Nurse Assist IV Therapy: (0) No Gait: (0) Normal/Bedrest/Immobile Mental Status: (0) Oriented to Own Ability Fall Score: 0 Fall Risk Score Definition: No Risk: No action required Pain Assessment Pain Scale: 0 Datetime: 08/22/2018 19:00 Labor Evaluation Frequency: none Monitor Mode: External Pattern: Normal: <= 5 Contractions in 10 Minutes Resting Tone [place]: Relaxed Datetime: 08/22/2018 18:00 Labor Evaluation Frequency: none Monitor Mode: External Pattern: Normal: <= 5 Contractions in 10 Minutes Resting Tone [place]: Relaxed Datetime: 08/22/2018 17:00 Labor Evaluation Frequency: none Monitor Mode: External Pattern: Normal: <= 5 Contractions in 10 Minutes Resting Tone [place]: Relaxed Datetime: 08/22/2018 16:00 Labor Evaluation Frequency: none Monitor Mode: External Pattern: Normal: <= 5 Contractions in 10 Minutes Resting Tone [place]: Relaxed Datetime: 08/22/2018 15:00 Labor Evaluation Frequency: none Monitor Mode: External Pattern: Normal: <= 5 Contractions in 10 Minutes Resting Tone [place]: Relaxed Datetime: 08/22/2018 14:00 Labor Evaluation Frequency: none Monitor Mode: External Pattern: Normal: <= 5 Contractions in 10 Minutes Resting Tone [place]: Relaxed Datetime: 08/22/2018 13:48 Labor Evaluation Frequency: NONE Monitor Mode: External Pattern: Normal: <= 5 Contractions in 10 Minutes Resting Tone [place]: Relaxed Heart Rate FHR Baseline Rate: 145 Monitor Mode: External US FHR Baseline Changes: No Baseline Change Variability: Moderate 6-25 bpm Accelerations: 15X15 Decelerations: None Category: Category I Datetime: 08/22/2018 13:00 Labor Evaluation Frequency: none Monitor Mode: External Pattern: Normal: <= 5 Contractions in 10 Minutes Resting Tone [place]: Relaxed Datetime: 08/22/2018 12:00 Labor Evaluation Frequency: NONE Monitor Mode: External Pattern: Normal: <= 5 Contractions in 10 Minutes Resting Tone [place]: Relaxed Datetime: 08/22/2018 11:00 Labor Evaluation Frequency: NONE Monitor Mode: External Pattern: Normal: <= 5 Contractions in 10 Minutes Resting Tone [place]: Relaxed Datetime: 08/22/2018 10:00 Labor Evaluation Frequency: NONE Monitor Mode: External Pattern: Normal: <= 5 Contractions in 10 Minutes Resting Tone [place]: Relaxed Datetime: 08/22/2018 09:00 Labor Evaluation Frequency: NONE Monitor Mode: External Pattern: Normal: <= 5 Contractions in 10 Minutes Resting Tone [place]: Relaxed Datetime: 08/22/2018 08:14 Temperature Route: Oral Datetime: 08/22/2018 08:00 Labor Evaluation Frequency: NONE Monitor Mode: External Pattern: Normal: <= 5 Contractions in 10 Minutes Resting Tone [place]: Relaxed Datetime: 08/22/2018 07:30 Stage of : Antepartum Datetime: 08/22/2018 07:00 Labor Evaluation Frequency: NONE Monitor Mode: External Resting Tone [place]: Relaxed Pain Presence: None/Denies Pain Type: N/A Datetime: 08/22/2018 06:35 Stage of : Antepartum Datetime: 08/22/2018 06:30 Stage of : Antepartum Temperature Route: Oral Datetime: 08/22/2018 06:00 Labor Evaluation Frequency: NONE Monitor Mode: External Resting Tone [place]: Relaxed Pain Presence: None/Denies Pain Type: N/A Datetime: 08/22/2018 05:00 Labor Evaluation Frequency: NONE Monitor Mode: External Resting Tone [place]: Relaxed Pain Presence: None/Denies Pain Type: N/A Pain Assessment Comments: CA SLEEPING WITH EVEN UNLABORED BREATHING Datetime: 08/22/2018 04:00 Labor Evaluation Frequency: NONE Monitor Mode: External Resting Tone [place]: Relaxed Pain Presence: None/Denies Pain Type: N/A Pain Assessment Comments: PT SLEEPING WITH EVEN UNLABORED BREATHING. Datetime: 08/22/2018 03:00 Labor Evaluation Frequency: NONE Monitor Mode: External Resting Tone [place]: Relaxed Pain Presence: None/Denies Pain Type: N/A Pain Assessment Comments: PT REQUESTED TO HAVE HER SCD'S PLACED BACK ON THE LEGS. NO IN PLACE AND CYCLING. Datetime: 08/22/2018 02:00 Labor Evaluation Frequency: NONE Monitor Mode: External Resting Tone [place]: Relaxed Pain Presence: None/Denies Pain Type: N/A Pain Assessment Comments: PT SLEEPING BUT EASILY AROUSED Datetime: 08/22/2018 01:00 Labor Evaluation Frequency: NONE Monitor Mode: External Resting Tone [place]: Relaxed Pain Presence: None/Denies Pain Type: N/A Pain Assessment Comments: PT SLEEPING WITH EVEN UNLABBORED BREATHING Datetime: 08/22/2018 00:04 Stage of : Antepartum Temperature Route: Oral Pain Presence: None/Denies Pain Type: N/A Datetime: 08/22/2018 00:00 Labor Evaluation Frequency: X1 Monitor Mode: External Duration (sec)2399: 50 Quality: Mild Resting Tone [place]: Relaxed Pain Presence: None/Denies Pain Type: N/A Datetime: 08/21/2018 23:00 Labor Evaluation Frequency: NONE Monitor Mode: External Quality: Mild Resting Tone [place]: Relaxed Pain Presence: None/Denies Pain Type: N/A Datetime: 08/21/2018 22:00 Labor Evaluation Frequency: X1 Monitor Mode: External Duration (sec)2399: 60 Quality: Mild Resting Tone [place]: Relaxed Pain Presence: None/Denies Pain Type: N/A Datetime: 08/21/2018 21:03 Labor Evaluation Frequency: NONE Monitor Mode: External Resting Tone [place]: Relaxed Heart Rate FHR Baseline Rate: 135 Monitor Mode: External US Variability: Moderate 6-25 bpm Accelerations: 15X15 Decelerations: None Category: Category I Pain Presence: None/Denies Pain Type: N/A Datetime: 08/21/2018 20:20 Stage of : Antepartum Datetime: 08/21/2018 19:54 Stage of : Antepartum Assessment Type: Ongoing Assessment Maternal Assessment Level of Consciousness: Fully Conscious DTR's/Clonus: DTRs 2+; No Clonus Headache: Denies Blurred Vision: No Respiratory Effort: Unlabored; Regular Rhythm; Equal Expansion Breath Sounds, Left: Clear and Equal Breath Sounds, Right: Clear and Equal Nausea/Vomiting: Denies RUQ Epigastric Pain: Denies Lower Extremities Edema: None Degree: None Upper Extremities Edema: None Degree: None Facial Edema: None Temperature Route: Oral Fall Risk Assessment History of Falling: (0) No Secondary Diagnosis: (0) No Ambulatory Aid: (0) Bedrest/Nurse Assist IV Therapy: (0) No Gait: (0) Normal/Bedrest/Immobile Mental Status: (0) Oriented to Own Ability Fall Score: 0 Fall Risk Score Definition: No Risk: No action required Labor Evaluation Frequency: NONE Monitor Mode: External Resting Tone [place]: Relaxed Contraction Comments: PT DENIES CRAMPING Monitor Mode: External US Comments: APPLIED FOR FHR MONITORING. PT STATES + FM. Pain Presence: None/Denies Pain Type: N/A Membrane Status: Intact Vaginal Bleeding: None Datetime: 08/21/2018 19:00 Labor Evaluation Frequency: 0 Monitor Mode: External Datetime: 08/21/2018 18:00 Labor Evaluation Frequency: 0 Monitor Mode: External Datetime: 08/21/2018 17:16 Stage of : Antepartum Temperature Route: Oral Pain Assessment Pain Scale: 0 Pain Presence: None/Denies Pain Goal: 0 Datetime: 08/21/2018 17:00 Labor Evaluation Frequency: 0 Monitor Mode: External Datetime: 08/21/2018 16:00 Labor Evaluation Frequency: 0 Monitor Mode: External Datetime: 08/21/2018 15:00 Labor Evaluation Frequency: 0 Monitor Mode: External Datetime: 08/21/2018 14:00 Labor Evaluation Frequency: 0 Monitor Mode: External Monitor Mode: PT FELT BABY MOVING Datetime: 08/21/2018 13:00 Labor Evaluation Frequency: 0 Monitor Mode: External Datetime: 08/21/2018 12:00 Stage of : Antepartum Temperature Route: Oral Labor Evaluation Frequency: 0 Monitor Mode: External Monitor Mode: PT FELT BABY MOVING Pain Assessment Pain Scale: 0 Pain Presence: None/Denies Pain Goal: 0 Datetime: 08/21/2018 11:00 Labor Evaluation Frequency: 0 Monitor Mode: External Datetime: 08/21/2018 10:00 Labor Evaluation Frequency: 0 Monitor Mode: External Datetime: 08/21/2018 09:00 Labor Evaluation Frequency: 0 Monitor Mode: External Pattern: Normal: <= 5 Contractions in 10 Minutes Resting Tone [place]: Relaxed Heart Rate FHR Baseline Rate: 130 Monitor Mode: External US FHR Baseline Changes: No Baseline Change Variability: Moderate 6-25 bpm Accelerations: 10X10 Decelerations: Variable (Annotations: 26 WKS EGA) Category: Category I Datetime: 08/21/2018 08:30 Labor Evaluation Frequency: 0 Monitor Mode: External Quality: Mild Pattern: Normal: <= 5 Contractions in 10 Minutes Monitor Mode: External US Datetime: 08/21/2018 07:50 Stage of : Antepartum Temperature Route: Oral Labor Evaluation Frequency: 0 Monitor Mode: External Pattern: Normal: <= 5 Contractions in 10 Minutes Resting Tone [place]: Relaxed Heart Rate FHR Baseline Rate: 140 Monitor Mode: External US FHR Baseline Changes: No Baseline Change Variability: Moderate 6-25 bpm Accelerations: 10X10 Decelerations: None Category: Category I Pain Assessment Pain Scale: 0 Pain Presence: None/Denies Pain Goal: 0 Datetime: 08/21/2018 07:36 Assessment Type: Ongoing Assessment Maternal Assessment Level of Consciousness: Fully Conscious DTR's/Clonus: DTRs 2+; No Clonus Headache: Denies Blurred Vision: No Respiratory Effort: Unlabored; Regular Rhythm; Equal Expansion Breath Sounds, Left: Clear and Equal Breath Sounds, Right: Clear and Equal Nausea/Vomiting: Denies RUQ Epigastric Pain: Denies Lower Extremities Edema: None Degree: None Upper Extremities Edema: None Degree: None Facial Edema: None Fall Risk Assessment History of Falling: (0) No Secondary Diagnosis: (0) No Ambulatory Aid: (0) Bedrest/Nurse Assist IV Therapy: (20) Yes Gait: (0) Normal/Bedrest/Immobile Mental Status: (0) Oriented to Own Ability Fall Score: 20 Fall Risk Score Definition: No Risk: No action required Datetime: 08/21/2018 07:31 Stage of : Antepartum Datetime: 08/21/2018 07:00 Stage of : Antepartum Datetime: 08/21/2018 06:37 Labor Evaluation Frequency: NONE Monitor Mode: External Resting Tone [place]: Relaxed Pain Presence: None/Denies Pain Type: N/A Datetime: 08/21/2018 06:00 Labor Evaluation Frequency: NONE Monitor Mode: External Resting Tone [place]: Relaxed Pain Presence: None/Denies Pain Type: N/A Datetime: 08/21/2018 05:00 Labor Evaluation Frequency: NONE Monitor Mode: External Resting Tone [place]: Relaxed Pain Presence: None/Denies Pain Type: N/A Datetime: 08/21/2018 04:00 DTR's/Clonus: DTRs 2+; No Clonus Breath Sounds, Left: Clear and Equal Breath Sounds, Right: Clear and Equal Labor Evaluation Frequency: NONE Monitor Mode: External Resting Tone [place]: Relaxed Pain Presence: None/Denies Pain Type: N/A Datetime: 08/21/2018 03:00 Labor Evaluation Frequency: X1 Monitor Mode: External Duration (sec)2399: 60 Quality: Mild Resting Tone [place]: Relaxed Pain Presence: None/Denies Pain Type: N/A Datetime: 08/21/2018 02:00 Labor Evaluation Frequency: X1 Monitor Mode: External Duration (sec)2399: 80 Quality: Mild Resting Tone [place]: Relaxed Pain Presence: None/Denies Pain Type: N/A Datetime: 08/21/2018 01:00 Labor Evaluation Frequency: NONE Monitor Mode: External Resting Tone [place]: Relaxed Pain Presence: None/Denies Pain Type: N/A Datetime: 08/21/2018 00:00 Maternal Assessment Level of Consciousness: Fully Conscious DTR's/Clonus: DTRs 2+; No Clonus Labor Evaluation Frequency: NONE Monitor Mode: External Resting Tone [place]: Relaxed Comments: PT STATES + FM Pain Presence: None/Denies Pain Type: N/A Datetime: 08/20/2018 23:00 Labor Evaluation Frequency: NONE Monitor Mode: External Resting Tone [place]: Relaxed Pain Presence: None/Denies Pain Type: N/A Datetime: 08/20/2018 22:46 Labor Evaluation Frequency: NONE Monitor Mode: External Resting Tone [place]: Relaxed Heart Rate FHR Baseline Rate: 130 Monitor Mode: External US Variability: Moderate 6-25 bpm Accelerations: 15X15 Decelerations: None Category: Category I Datetime: 08/20/2018 22:00 Labor Evaluation Frequency: NONE Monitor Mode: External Heart Rate FHR Baseline Rate: 130 Monitor Mode: External US Variability: Moderate 6-25 bpm Datetime: 08/20/2018 21:49 Monitor Mode: External US Comments: APPLIED FOR NST Datetime: 08/20/2018 21:00 Labor Evaluation Frequency: NONE Monitor Mode: External Resting Tone [place]: Relaxed Pain Presence: None/Denies Pain Type: N/A Datetime: 08/20/2018 20:00 Labor Evaluation Frequency: NONE Monitor Mode: External Resting Tone [place]: Relaxed Pain Presence: None/Denies Pain Type: N/A Datetime: 08/20/2018 19:47 Stage of : Antepartum Assessment Type: Ongoing Assessment Maternal Assessment Level of Consciousness: Fully Conscious DTR's/Clonus: DTRs 2+; No Clonus Headache: Denies Blurred Vision: No Respiratory Effort: Unlabored; Regular Rhythm; Equal Expansion Breath Sounds, Left: Clear and Equal Breath Sounds, Right: Clear and Equal Nausea/Vomiting: Denies RUQ Epigastric Pain: Denies Lower Extremities Edema: None Degree: None Upper Extremities Edema: None Degree: None Facial Edema: None Temperature Route: Oral Fall Risk Assessment History of Falling: (0) No Secondary Diagnosis: (0) No Ambulatory Aid: (0) Bedrest/Nurse Assist IV Therapy: (0) No Gait: (0) Normal/Bedrest/Immobile Mental Status: (0) Oriented to Own Ability Fall Score: 0 Fall Risk Score Definition: No Risk: No action required Contraction Comments: PT DENIES CRAMPING Comments: PT STATES + FM Pain Presence: None/Denies Pain Type: N/A Membrane Status: Intact Vaginal Bleeding: None Datetime: 08/20/2018 18:00 Stage of : Antepartum Maternal Assessment Level of Consciousness: Fully Conscious Headache: Denies Nausea/Vomiting: Denies RUQ Epigastric Pain: Denies Labor Evaluation Frequency: 0/hr Monitor Mode: External Pain Assessment Pain Scale: 0 Pain Presence: None/Denies Vaginal Bleeding: None Datetime: 08/20/2018 17:00 Stage of : Antepartum Maternal Assessment Level of Consciousness: Fully Conscious Headache: Denies Nausea/Vomiting: Denies RUQ Epigastric Pain: Denies Labor Evaluation Frequency: 0/hr Monitor Mode: External Pain Assessment Pain Scale: 0 Pain Presence: None/Denies Membrane Status: Intact Vaginal Bleeding: None Datetime: 08/20/2018 16:32 Maternal Assessment Level of Consciousness: Fully Conscious DTR's/Clonus: DTRs 2+ Headache: Denies Blurred Vision: No Respiratory Effort: Unlabored Nausea/Vomiting: Denies RUQ Epigastric Pain: Denies Monitor Mode: External Resting Tone [place]: Relaxed Datetime: 08/20/2018 15:00 Stage of : Antepartum Maternal Assessment Level of Consciousness: Fully Conscious Headache: Denies Nausea/Vomiting: Denies RUQ Epigastric Pain: Denies Labor Evaluation Frequency: 0/hr Monitor Mode: External Pain Assessment Pain Scale: 0 Pain Presence: None/Denies Membrane Status: Intact Vaginal Bleeding: None Datetime: 08/20/2018 14:00 Stage of : Antepartum Maternal Assessment Level of Consciousness: Fully Conscious Headache: Denies Nausea/Vomiting: Denies RUQ Epigastric Pain: Denies Labor Evaluation Frequency: 0/hr Monitor Mode: External Pain Assessment Pain Scale: 0 Pain Presence: None/Denies Membrane Status: Intact Vaginal Bleeding: None Datetime: 08/20/2018 13:00 Stage of : Antepartum Maternal Assessment Level of Consciousness: Fully Conscious Headache: Denies Nausea/Vomiting: Denies RUQ Epigastric Pain: Denies Labor Evaluation Frequency: 0/hr Monitor Mode: External Decelerations: None Pain Assessment Pain Scale: 0 Pain Presence: None/Denies Vaginal Bleeding: None Datetime: 08/20/2018 12:56 Maternal Assessment Level of Consciousness: Fully Conscious Headache: Denies Blurred Vision: No Nausea/Vomiting: Denies Pain Presence: None/Denies Datetime: 08/20/2018 12:04 Stage of : Antepartum Maternal Assessment Level of Consciousness: Fully Conscious Headache: Denies Nausea/Vomiting: Denies RUQ Epigastric Pain: Denies Labor Evaluation Frequency: 0/hr Monitor Mode: External Decelerations: None Pain Assessment Pain Scale: 0 Pain Presence: None/Denies Vaginal Bleeding: None Datetime: 08/20/2018 11:16 Maternal Assessment Level of Consciousness: Fully Conscious DTR's/Clonus: DTRs 2+ Headache: Denies Blurred Vision: No Respiratory Effort: Unlabored Nausea/Vomiting: Denies RUQ Epigastric Pain: Denies Monitor Mode: External Resting Tone [place]: Relaxed Pain Presence: None/Denies Datetime: 08/20/2018 11:03 Stage of : Antepartum Maternal Assessment Level of Consciousness: Fully Conscious DTR's/Clonus: DTRs 2+ Headache: Denies Nausea/Vomiting: Denies RUQ Epigastric Pain: Denies Labor Evaluation Frequency: 0/hr Monitor Mode: External Resting Tone [place]: Relaxed Heart Rate FHR Baseline Rate: 130 Monitor Mode: External US Variability: Moderate 6-25 bpm Accelerations: 15X15 Decelerations: None Comments: approp. for ega 26.4 Pain Assessment Pain Scale: 0 Pain Presence: None/Denies Vaginal Bleeding: None Datetime: 08/20/2018 10:22 Monitor Mode: Palpation Resting Tone [place]: Relaxed Datetime: 08/20/2018 10:00 Stage of : Antepartum Maternal Assessment Level of Consciousness: Fully Conscious Headache: Denies Nausea/Vomiting: Denies RUQ Epigastric Pain: Denies Labor Evaluation Frequency: 0/hr Monitor Mode: External Pain Assessment Pain Scale: 0 Pain Presence: None/Denies Vaginal Bleeding: None Datetime: 08/20/2018 09:04 Pain Presence: None/Denies Datetime: 08/20/2018 09:00 Stage of : Antepartum Maternal Assessment Level of Consciousness: Fully Conscious DTR's/Clonus: DTRs 2+ Headache: Denies Nausea/Vomiting: Denies RUQ Epigastric Pain: Denies Labor Evaluation Frequency: 0/hr Monitor Mode: External Pain Assessment Pain Scale: 0 Pain Presence: None/Denies Vaginal Bleeding: None Datetime: 08/20/2018 08:01 Stage of : Antepartum Maternal Assessment Level of Consciousness: Fully Conscious Headache: Denies Blurred Vision: No Respiratory Effort: Unlabored Nausea/Vomiting: Denies RUQ Epigastric Pain: Denies Labor Evaluation Frequency: 0/hr Monitor Mode: External Contraction Comments: pt. denies uc' Comments: pt. acknowledges movement ega 26.4 today/ nst q shift Pain Assessment Pain Scale: 0 Pain Presence: None/Denies Vaginal Bleeding: None Datetime: 08/20/2018 07:19 Stage of : Antepartum Assessment Type: Ongoing Assessment Maternal Assessment Level of Consciousness: Fully Conscious Headache: Denies Blurred Vision: No Respiratory Effort: Unlabored Nausea/Vomiting: Denies RUQ Epigastric Pain: Denies Temperature Route: Oral Monitor Mode: External Resting Tone [place]: Relaxed Datetime: 08/20/2018 06:10 Labor Evaluation Frequency: 0 Monitor Mode: External Duration (sec)2399: denies Resting Tone [place]: Relaxed Pain Presence: None/Denies Datetime: 08/20/2018 05:10 Labor Evaluation Frequency: 0 Monitor Mode: External Duration (sec)2399: denies Resting Tone [place]: Relaxed Pain Presence: None/Denies Datetime: 08/20/2018 04:10 Labor Evaluation Frequency: x1 Monitor Mode: External Duration (sec)2399: 40 Quality: Mild Resting Tone [place]: Relaxed Pain Presence: None/Denies Datetime: 08/20/2018 03:10 Labor Evaluation Frequency: x1 Monitor Mode: External Duration (sec)2399: 40 Quality: Mild Resting Tone [place]: Relaxed Pain Presence: None/Denies Datetime: 08/20/2018 02:15 Labor Evaluation Frequency: 0 Monitor Mode: External Resting Tone [place]: Relaxed Pain Presence: None/Denies Datetime: 08/20/2018 01:15 Labor Evaluation Frequency: 0 Monitor Mode: External Duration (sec)2399: denies Resting Tone [place]: Relaxed Datetime: 08/20/2018 00:15 Labor Evaluation Frequency: 0 Monitor Mode: External Duration (sec)2399: denies Resting Tone [place]: Relaxed Pain Presence: None/Denies Datetime: 08/19/2018 23:14 Labor Evaluation Frequency: 0 Monitor Mode: External Resting Tone [place]: Relaxed Heart Rate FHR Baseline Rate: 130 Monitor Mode: External US Variability: Moderate 6-25 bpm Accelerations: 15X15 Decelerations: None Comments: NST DONE APPROPRIATE FOR GA. Pain Presence: None/Denies Datetime: 08/19/2018 22:30 Monitor Mode: External US Comments: PLACED NST STARTED. Datetime: 08/19/2018 22:00 Labor Evaluation Frequency: 0 Monitor Mode: External Duration (sec)2399: DENIES Resting Tone [place]: Relaxed Pain Presence: None/Denies Datetime: 08/19/2018 21:00 Labor Evaluation Frequency: 0 Monitor Mode: External Duration (sec)2399: DENIES Resting Tone [place]: Relaxed Pain Presence: None/Denies Datetime: 08/19/2018 20:33 Stage of : Antepartum Assessment Type: Ongoing Assessment Maternal Assessment Level of Consciousness: Fully Conscious DTR's/Clonus: DTRs 2+; No Clonus Headache: Denies Blurred Vision: No Respiratory Effort: Unlabored; Regular Rhythm; Equal Expansion Breath Sounds, Left: Clear and Equal Breath Sounds, Right: Clear and Equal Nausea/Vomiting: Denies RUQ Epigastric Pain: Denies Lower Extremities Edema: None Degree: None Upper Extremities Edema: None Degree: None Facial Edema: None Temperature Route: Oral Fall Risk Assessment History of Falling: (0) No Secondary Diagnosis: (0) No Ambulatory Aid: (0) Bedrest/Nurse Assist IV Therapy: (0) No Gait: (0) Normal/Bedrest/Immobile Mental Status: (0) Oriented to Own Ability Fall Score: 0 Fall Risk Score Definition: No Risk: No action required Pain Presence: None/Denies Datetime: 08/19/2018 19:00 Stage of : Antepartum Maternal Assessment Level of Consciousness: Fully Conscious Headache: Denies Nausea/Vomiting: Denies RUQ Epigastric Pain: Denies Labor Evaluation Frequency: 0/hr Monitor Mode: External Pain Presence: None/Denies Vaginal Bleeding: None Datetime: 08/19/2018 17:30 Maternal Assessment Level of Consciousness: Fully Conscious DTR's/Clonus: DTRs 2+ Headache: Denies Blurred Vision: No Respiratory Effort: Unlabored Nausea/Vomiting: Denies RUQ Epigastric Pain: Denies Pain Presence: None/Denies Datetime: 08/19/2018 17:00 Stage of : Antepartum Maternal Assessment Level of Consciousness: Fully Conscious Headache: Denies Nausea/Vomiting: Denies RUQ Epigastric Pain: Denies Labor Evaluation Frequency: 0/hr Monitor Mode: External Pain Presence: None/Denies Vaginal Bleeding: None Datetime: 08/19/2018 16:12 Maternal Assessment Level of Consciousness: Fully Conscious Headache: Denies Blurred Vision: No Respiratory Effort: Unlabored Breath Sounds, Left: Clear and Equal Breath Sounds, Right: Clear and Equal Nausea/Vomiting: Denies RUQ Epigastric Pain: Denies Datetime: 08/19/2018 16:03 Stage of : Antepartum Maternal Assessment Level of Consciousness: Fully Conscious Headache: Denies Nausea/Vomiting: Denies RUQ Epigastric Pain: Denies Labor Evaluation Frequency: 0/hr Monitor Mode: External Comments: audible fht's 130's pt. rt. mid quad and audible movement by rn. pt. acknwledges in creased movement. abdomen soft and non tender to touch. pt. states baby has been difficult to m onitor. rn getting u.s. to verift fht's Pain Presence: None/Denies Vaginal Bleeding: None Datetime: 08/19/2018 15:00 Stage of : Antepartum Maternal Assessment Level of Consciousness: Fully Conscious DTR's/Clonus: DTRs 2+ Headache: Denies Nausea/Vomiting: Denies RUQ Epigastric Pain: Denies Labor Evaluation Frequency: 0/hr Monitor Mode: External Pain Presence: None/Denies Vaginal Bleeding: None Datetime: 08/19/2018 14:00 Stage of : Antepartum Maternal Assessment Level of Consciousness: Fully Conscious Headache: Denies Nausea/Vomiting: Denies RUQ Epigastric Pain: Denies Labor Evaluation Frequency: 0/hr Monitor Mode: External Pain Presence: None/Denies Vaginal Bleeding: None Datetime: 08/19/2018 13:33 Stage of : Antepartum Datetime: 08/19/2018 13:28 Pain Presence: None/Denies Datetime: 08/19/2018 13:19 Maternal Assessment Level of Consciousness: Fully Conscious DTR's/Clonus: DTRs 2+ Headache: Denies Blurred Vision: No Respiratory Effort: Unlabored Nausea/Vomiting: Denies RUQ Epigastric Pain: Denies Pain Presence: None/Denies Datetime: 08/19/2018 12:02 Stage of : Antepartum Maternal Assessment Level of Consciousness: Fully Conscious Headache: Denies Nausea/Vomiting: Denies RUQ Epigastric Pain: Denies Labor Evaluation Frequency: 0/hr Monitor Mode: External Pain Presence: None/Denies Vaginal Bleeding: None Datetime: 08/19/2018 11:11 Stage of : Antepartum Maternal Assessment Level of Consciousness: Fully Conscious Headache: Denies Blurred Vision: No Respiratory Effort: Unlabored Nausea/Vomiting: Denies RUQ Epigastric Pain: Denies Labor Evaluation Frequency: 0/hr Monitor Mode: External Pain Presence: None/Denies Vaginal Bleeding: None Datetime: 08/19/2018 10:18 Stage of : Antepartum Maternal Assessment Level of Consciousness: Fully Conscious Headache: Denies Blurred Vision: No Respiratory Effort: Unlabored Nausea/Vomiting: Denies RUQ Epigastric Pain: Denies Labor Evaluation Frequency: 0/hr Monitor Mode: External Resting Tone [place]: Relaxed Comments: pt. acknowledges movement ega 26.3 today Datetime: 08/19/2018 10:06 Pain Presence: None/Denies Datetime: 08/19/2018 09:33 Stage of : Antepartum Maternal Assessment Level of Consciousness: Fully Conscious DTR's/Clonus: DTRs 2+ Headache: Denies Nausea/Vomiting: Denies RUQ Epigastric Pain: Denies Labor Evaluation Frequency: 0/hr Monitor Mode: External Contraction Comments: pt. denies cramping or uc's at this time Pain Assessment Pain Scale: 0 Pain Presence: None/Denies Membrane Status: Intact (Annotations: pt. denies srom or leaking at this time) Vaginal Bleeding: None Datetime: 08/19/2018 08:27 Maternal Assessment Level of Consciousness: Fully Conscious Headache: Denies Blurred Vision: No Respiratory Effort: Unlabored Nausea/Vomiting: Denies RUQ Epigastric Pain: Denies Resting Tone [place]: Relaxed Comments: audible fht's when rn adjust and hold in place. when trying to secure loss of contact Pain Presence: None/Denies Pain Assessment Comments: pt. states her pain has improved and denies uc's, cramping, bleeding, or srom Datetime: 08/19/2018 08:00 Resting Tone [place]: Relaxed Monitor Mode: External US Datetime: 08/19/2018 07:18 Maternal Assessment Level of Consciousness: Fully Conscious DTR's/Clonus: DTRs 2+ Headache: Denies Blurred Vision: No Respiratory Effort: Unlabored Breath Sounds, Left: Clear and Equal Breath Sounds, Right: Clear and Equal Nausea/Vomiting: Denies RUQ Epigastric Pain: Denies Pain Presence: None/Denies Datetime: 08/19/2018 06:00 Labor Evaluation Frequency: NONE Monitor Mode: External Resting Tone [place]: Relaxed Heart Rate FHR Baseline Rate: 130 Variability: Moderate 6-25 bpm Comments: LOC DUE TO ACTIVE FETUS AND MATERNAL ODESITY. Datetime: 08/19/2018 05:35 Monitor Mode: External US Datetime: 08/19/2018 05:00 Labor Evaluation Frequency: NONE Monitor Mode: External Resting Tone [place]: Relaxed Heart Rate FHR Baseline Rate: 130 Monitor Mode: External US Variability: Moderate 6-25 bpm Accelerations: 15X15 Decelerations: None Comments: AGA Pain Presence: None/Denies Pain Type: N/A Datetime: 08/19/2018 04:00 Maternal Assessment Level of Consciousness: Fully Conscious DTR's/Clonus: DTRs 2+; No Clonus Breath Sounds, Left: Clear and Equal Breath Sounds, Right: Clear and Equal Labor Evaluation Frequency: NONE Monitor Mode: External Resting Tone [place]: Relaxed Contraction Comments: PT DENEIS CRAMPING AT THIS TME. PT STATES SHE FEELS MUCH BETTER THAT WHEN SH E CAME IN. Heart Rate FHR Baseline Rate: 130 Monitor Mode: External US Variability: Moderate 6-25 bpm Accelerations: None Decelerations: None Comments: AGA Pain Presence: None/Denies Pain Type: N/A Datetime: 08/19/2018 03:29 Comments: FM BELTS REMOVED AND BELLY BAND APPLIED. Datetime: 08/19/2018 03:00 Labor Evaluation Frequency: NONE Monitor Mode: External Resting Tone [place]: Relaxed Heart Rate FHR Baseline Rate: 135 Monitor Mode: External US Variability: Moderate 6-25 bpm Datetime: 08/19/2018 02:00 Labor Evaluation Frequency: NONE Monitor Mode: External Resting Tone [place]: Relaxed Datetime: 08/19/2018 01:00 Labor Evaluation Frequency: NONE Monitor Mode: External Resting Tone [place]: Relaxed Datetime: 08/19/2018 00:00 Labor Evaluation Frequency: Irregular Monitor Mode: External Resting Tone [place]: Relaxed Heart Rate FHR Baseline Rate: 135 Monitor Mode: External US Variability: Moderate 6-25 bpm Datetime: 08/18/2018 23:57 Pain Assessment Pain Scale: 0 Pain Presence: None/Denies Pain Type: N/A Datetime: 08/18/2018 23:00 Labor Evaluation Frequency: Irregular Monitor Mode: External Resting Tone [place]: Relaxed Heart Rate FHR Baseline Rate: 135 Monitor Mode: External US Variability: Moderate 6-25 bpm Datetime: 08/18/2018 22:50 Assessment Type: Admission Assessment Vaginal Bleeding: None Maternal Assessment Level of Consciousness: Fully Conscious DTR's/Clonus: DTRs 2+; No Clonus Headache: Denies Blurred Vision: No Respiratory Effort: Unlabored; Regular Rhythm; Equal Expansion Breath Sounds, Left: Clear and Equal Breath Sounds, Right: Clear and Equal Nausea/Vomiting: Denies RUQ Epigastric Pain: Denies Lower Extremities Edema: None Degree: None Upper Extremities Edema: None Degree: None Facial Edema: None Fall Risk Assessment History of Falling: (0) No Secondary Diagnosis: (0) No Ambulatory Aid: (0) Bedrest/Nurse Assist IV Therapy: (20) Yes Gait: (0) Normal/Bedrest/Immobile Mental Status: (0) Oriented to Own Ability Fall Score: 20 Fall Risk Score Definition: No Risk: No action required Pain Assessment Pain Scale: 4 Pain Presence: Constant Pain Type: Pressure Pain Location: Abdomen Datetime: 08/18/2018 22:44 Stage of : Antepartum Datetime: 08/18/2018 22:00 Labor Evaluation Frequency: Irregular Monitor Mode: External Resting Tone [place]: Relaxed Heart Rate FHR Baseline Rate: 140 Monitor Mode: External US Variability: Moderate 6-25 bpm Datetime: 08/18/2018 21:42 Maternal Assessment Level of Consciousness: Fully Conscious DTR's/Clonus: DTRs 2+; No Clonus Headache: Denies Blurred Vision: No Breath Sounds, Left: Clear and Equal Breath Sounds, Right: Clear and Equal Nausea/Vomiting: Denies RUQ Epigastric Pain: Denies Lower Extremities Edema: None Degree: None Upper Extremities Edema: None Degree: None Facial Edema: None Pain Assessment Pain Scale: 4 Pain Presence: Constant Pain Type: Pressure Pain Location: Abdomen Datetime: 08/18/2018 21:00 Labor Evaluation Frequency: x5 Monitor Mode: External Duration (sec)2399: 50-100 Quality: Mild Pattern: Normal: <= 5 Contractions in 10 Minutes Resting Tone [place]: Relaxed Datetime: 08/18/2018 20:00 Labor Evaluation Frequency: Irregular Monitor Mode: External Resting Tone [place]: Relaxed Heart Rate FHR Baseline Rate: 140 Monitor Mode: External US Variability: Moderate 6-25 bpm Comments: Appropriate for gestational age Datetime: 08/18/2018 19:55 Pain Assessment Pain Scale: 4 Pain Presence: Constant Pain Type: Pressure Pain Location: Abdomen Datetime: 08/18/2018 19:15 Stage of : OB Triage Pain Assessment Pain Scale: 0 Pain Presence: None/Denies Pain Type: N/A Datetime: 08/18/2018 17:44 Fall Score: 0 Fall Risk Score Definition: No Risk: No action required Datetime: 08/18/2018 17:43 EGA: 26.2
[2018-10-22] MEDS: PRENATAL VITAMIN PO SCH (09:11)
[2018-10-22] MEDS: FERROUS SULFATE (EC) 325 MG TAB PO SCH (09:11)
--- NOTE | 2018-10-22 21:35 | HP ---
Date/Time of Note Date/Time of Note DATE: 10/22/18 TIME: 21:29 OB - History Hx of Present Free Text/Dictation Late entry note. Patient seen on 10/21/2018 33-year-old 1 weeks intrauterine at 35 weeks and 3 days was seen at [facility] for visit and was noted to has elevated blood pressure of 153/101 with repeat blood pressure of 145/83 at 10 minutes. She was sent to [facility] her for admission and close that observation. She states good movement. She denies nausea, vomiting, shortness of breath, chest pain, headache, visual changes, vaginal bleeding or LOF. Risk factors: -Gestational hypertension versus preeclampsia -Short cervix, she was admitted previously he s/p magnesium sulfate for neuro protection and betamethasone for maturity of the long. Last ultrasound cervical length was 5 mm Chief Complaint: Elevated blood pressure : 1 Care: Good Care Ultrasounds: Normal mid trimester US Obstetrical Complications: Gestational Hypertension, Other (Short cervix ) Medical Complications: None Past Family/Social History * Past Medical, Surgical, Family and Obstetric Histories reviewed from chart. OB Admission Exam Vital Signs Vital Signs Vital Signs Date Temp Pulse Resp B/P (MAP) Pulse Ox O2 O2 Flow FiO2 Time Delivery Rate 10/21/18 98.3 99 18 150/80 16:02 (103) Physical Exam HEENT: WNL Heart: Rhythm Normal Lungs: Clear Abdomen: WNL Extremities: Normal Reflexes: Normal Accelerations: Accelerations Present Decelerations: No Decelerations Varibility: Moderate Contractions on Admission: None Last 72 hours Lab Results CBC & BMP 10/21/18 16:28 Liver Function Test 10/21/18 16:28 Alanine Aminotransferase (ALT/SGPT) 18 Albumin 3.4 Alkaline Phosphatase 157 H Aspartate Amino Transf (AST/SGOT) 18 Direct Bilirubin 0.00 Total Protein 6.7 OB Assessment/Plan Other plan: 33-year-old 1 with single intrauterine at 35 weeks and 3 days with short cervix and gestational hypertension versus preeclampsia - FHR: No sign of metabolic acidosis- Category I - Continuous EFM, toco - CBC, blood type and screen, CMP, uric acid, urinalysis - 24-hour urine protein creatinine clearance - Close monitoring of blood pressure, sign and symptom of preeclampsia with severe features - Please see the orders - Perinatology consult 2) Short cervix: Last ultrasound cervical length was 5 mm. She is status post receiving magnesium sulfate and betamethasone in prior admission MERA RICO Oct 22, 2018 21:35
--- NOTE | 2018-10-22 21:43 | QN ---
Documentation Comment 33-year-old 1 with single intrauterine at 35 weeks and 3 days with short cervix and preeclampsia. She had 2 elevated blood pressure at yesterday visit and one elevated blood pressure on arrival in triage yesterday. She states good movement. She denies nausea, vomiting, shortness of breath, chest pain, headache, visual changes, vaginal bleeding or LOF. All her blood pressure since admission were wnl. CBC, CMP: wnl. 24-hour urine protein is 656. - FHR: No sign of metabolic acidosis- Category I - Continuous EFM, toco - Please see the orders - Perinatology consult tomorrow MERA RICO Oct 22, 2018 21:42
[2018-10-23] MEDS: PRENATAL VITAMIN PO SCH (08:07)
[2018-10-23] MEDS: FERROUS SULFATE (EC) 325 MG TAB PO SCH (08:07)
--- NOTE | 2018-10-23 15:22 | PN ---
Date/Time of Note Date/Time of Note DATE: 10/23/18 TIME: 15:10 OB Subjective Subjective Subjective Patient denies any headache, blurred vision, epigastric pain in the right upper quadrant pain. Denies any leaking of fluid, vaginal bleeding or decreased movement. OB Objective Objective Objective General appearance: Alert and oriented x4 does not appear to be in any acute distress She is comfortable at bed Abdomen: Soft, gravid, fundal height and severe gestational age NST: Category 1 Extremities: Bilateral symmetric 2+ edema. Bilateral patellar reflexes normal VS - Last 72 Hours, by Label Date Temp Pulse Resp B/P (MAP) Pulse Ox O2 O2 Flow FiO2 Time Delivery Rate 10/21/18 98.3 99 18 150/80 16:02 (103) OB Assessment/Plan Other Assessment: IUP at 35 weeks and 5 days Hypertensin, PIH asymptomatic. Resolved with bed rest. Per perinatologist OK to go home with bed rest at home and prelcampsia precaution and follow up in 3 days with the Triage in 3 days for testiog. Strict preclampsia precaution explained and discussed with the patient labor precaution and kick counts discussed follow up in 2-3 days with primary OB office discussed as well as follow up with Triage in 2-3 days. PATSY DEVI MD Oct 23, 2018 15:22
== END 2018-10-23 16:00 | disposition home or self-care (01) | DRG 832 ==
LOC: OBT 15:51 → L-D 15:51 → OBT 17:36 → L-D 17:58
PROVIDERS: ADMIT Obstetrics & Gynecology; ATTEND Obstetrics & Gynecology
DX: O13.3 Gestational [pregnancy-induced] hypertension without significant proteinuria, third trimester (principal); O26.873 Cervical shortening, third trimester; Z3A.35 35 weeks gestation of pregnancy
CPT/HCPCS: 76818; 80053; 81001; 82575; 84156; 84560; 85025; G0463

== ENCOUNTER 2018-10-26 20:11 | Outpatient (CLI) | payer MEDICAID ==
[~2018-10-26] VITALS: Ht 154.9 cm; Wt 131.8 kg
[2018-10-26] MEDS ORDERED: PREN-93 PO (20:44)
[2018-10-26 20:45] VITALS: Ht 154.9 cm; Wt 131.8 kg
[2018-10-26 20:46] VITALS: BP 115/66; PULSE 74; RESP 18
--- NOTE | 2018-10-27 00:02 | PN ---
Triage Information Date/Time Reason for visit: h/o short cervix and preeclampsia Weeks of Gestation 36 weeks /Para Diabetes: none Hypertention: induced Objective Vital Signs Date Temp Pulse Resp B/P (MAP) Pulse Ox O2 O2 Flow FiO2 Time Delivery Rate 10/26/18 98.1 74 18 115/66 Room Air 20:46 (82) Heart Rate: 120's Heart Rate Comments Reactive Exam Patient declined pelvic exam Results/Medications Result Diagram: 10/26/18212310/26/182123 Results 24 hrs Laboratory Tests Test 10/26/18 20:05 10/26/18 21:24 Urine Color YELLOW Urine Clarity CLEAR Urine pH 7.0 Urine Specific [place] 1.006 Urine Ketones NEGATIVE Urine Nitrite NEGATIVE Urine Bilirubin NEGATIVE Urine Urobilinogen NEGATIVE Urine Leukocyte Esterase TRACE A Urine Microscopic RBC 1 Urine Microscopic WBC 1 Urine Bacteria FEW A Urine Hemoglobin NEGATIVE Urine Glucose NEGATIVE Urine Total Protein NEGATIVE White Blood Count 7.2 Red Blood Count 4.12 L Hemoglobin 12.1 Hematocrit 36.9 L Mean Corpuscular Volume 89.6 Mean Corpuscular Hemoglobin 29.4 Mean Corpuscular Hemoglobin Concent 32.8 Red Cell Distribution Width 14.0 Platelet Count 188 Mean Platelet Volume 11.5 H Immature Granulocytes % 0.300 Neutrophils % 68.2 Lymphocytes % 19.8 Monocytes % 10.3 Eosinophils % 1.1 Basophils % 0.3 Nucleated Red Blood Cells % 0.0 Immature Granulocytes # 0.020 Neutrophils # 4.9 Lymphocytes # 1.4 Monocytes # 0.7 Eosinophils # 0.1 Basophils # 0.0 Nucleated Red Blood Cells # 0.0 Sodium Level 138 Potassium Level 4.0 Chloride Level 110 Carbon Dioxide Level 21 Anion Gap 7 Blood Urea Nitrogen 10 Creatinine 0.66 Est Glomerular Filtrat Rate mL/min > 60 Glucose Level 84 Uric Acid 4.8 Calcium Level 9.4 Total Bilirubin 0.5 Direct Bilirubin 0.00 Indirect Bilirubin 0.5 Aspartate Amino Transf (AST/SGOT) 22 Alanine Aminotransferase (ALT/SGPT) 25 Alkaline Phosphatase 162 H Total Protein 6.4 Albumin 3.5 Globulin 2.90 Albumin/Globulin Ratio 1.20 Disposition: Discharge Assessment/Plan Follow up with Dr Sosa on 10/28/2018. FRANNIE ARMENDARIZ MD Oct 27, 2018 00:02
--- NOTE | 2018-10-27 04:01 | TRIAGE ---
OB Triage Datetime Report Generated by CPN: 10/27/2018 04:01 Datetime: 10/26/2018 20:32 Stage of : OB Triage Assessment Type: Triage Maternal Assessment Level of Consciousness: Fully Conscious DTR's/Clonus: DTRs 2+; No Clonus Headache: Denies Blurred Vision: No Respiratory Effort: Unlabored; Regular Rhythm; Equal Expansion Breath Sounds, Left: Clear and Equal Breath Sounds, Right: Clear and Equal Nausea/Vomiting: Denies RUQ Epigastric Pain: Denies Lower Extremities Edema: Bilateral Lower Extremities Degree: 1+ Upper Extremities Edema: None Degree: None Facial Edema: None Temperature Route: Oral Fall Risk Assessment History of Falling: (0) No Secondary Diagnosis: (0) No Ambulatory Aid: (0) Bedrest/Nurse Assist IV Therapy: (0) No Gait: (0) Normal/Bedrest/Immobile Mental Status: (0) Oriented to Own Ability Fall Score: 0 Fall Risk Score Definition: No Risk: No action required Pain Assessment Pain Scale: 0 Pain Presence: None/Denies Pain Type: N/A Datetime: 10/26/2018 20:28 Time of Arrival: 10/26/2018 20:03 EGA: 36.1 Arrived By: Ambulatory Arrived From: Home Chief Complaint: Follow-up for NST/BPP Movement: Present Contractions: Denies/Absent Rupture of Membranes: Denies Vaginal Bleeding: None Vaginal Discharge: Present Abdominal Trauma: Not Applicable Patient Complaints: None Additional Patient Complaints: Pt reports having short cervix _ hx elevated BP Time Provider Notified: 10/26/2018 20:44 Provider Notified: Initial Plan: NST/BPP Datetime: 10/23/2018 13:29 Maternal Assessment Level of Consciousness: Fully Conscious DTR's/Clonus: DTRs 2+ Headache: Denies Blurred Vision: No Respiratory Effort: Unlabored Nausea/Vomiting: Denies RUQ Epigastric Pain: Denies Facial Edema: None Labor Evaluation Frequency: 0 Monitor Mode: External Duration (sec)2399: 0 Resting Tone [place]: Relaxed Heart Rate FHR Baseline Rate: 130 Monitor Mode: External US Variability: Moderate 6-25 bpm Accelerations: 15X15 Decelerations: Early Category: Category I Pain Assessment Pain Scale: 0 Pain Presence: None/Denies Pain Goal: 0 Vaginal Exam Membrane Status: Intact Datetime: 10/23/2018 13:19 Labor Evaluation Frequency: 0 Monitor Mode: External Duration (sec)2399: 0 Resting Tone [place]: Relaxed Heart Rate FHR Baseline Rate: 130 Monitor Mode: External US Accelerations: 15X15 Decelerations: Early Category: Category I Comments: placed on monitor Datetime: 10/23/2018 10:26 Maternal Assessment Level of Consciousness: Fully Conscious DTR's/Clonus: DTRs 2+ Headache: Denies Blurred Vision: No Respiratory Effort: Unlabored Nausea/Vomiting: Denies RUQ Epigastric Pain: Denies Facial Edema: None Labor Evaluation Frequency: 0 Monitor Mode: External Duration (sec)2399: 0 Resting Tone [place]: Relaxed Contraction Comments: no uc's noted, off monitor per order Heart Rate FHR Baseline Rate: 130 Monitor Mode: External US Variability: Moderate 6-25 bpm Accelerations: 15X15 Decelerations: None Category: Category I Comments: reactive NST, off monitor per orders Pain Assessment Pain Scale: 0 Pain Presence: None/Denies Pain Type: N/A Pain Goal: 0 Pain Relief Measures: Comfort Measures Vaginal Exam Membrane Status: Intact Datetime: 10/23/2018 09:49 Maternal Assessment Level of Consciousness: Fully Conscious DTR's/Clonus: DTRs 2+ Headache: Denies Blurred Vision: No Respiratory Effort: Unlabored Nausea/Vomiting: Denies RUQ Epigastric Pain: Denies Facial Edema: None Monitor Mode: External Resting Tone [place]: Relaxed Contraction Comments: placed on monitor for NST Heart Rate FHR Baseline Rate: 135 Monitor Mode: External US Variability: Moderate 6-25 bpm Accelerations: 15X15 Decelerations: None Category: Category I Comments: placed on monitor for NST per order Pain Assessment Pain Scale: 0 Pain Presence: None/Denies Pain Type: N/A Pain Goal: 0 Pain Relief Measures: Comfort Measures Vaginal Exam Membrane Status: Intact Datetime: 10/23/2018 09:00 Maternal Assessment Level of Consciousness: Fully Conscious DTR's/Clonus: DTRs 2+ Headache: Denies Blurred Vision: No Respiratory Effort: Unlabored Nausea/Vomiting: Denies RUQ Epigastric Pain: Denies Facial Edema: None Contraction Comments: off Comments: off Pain Assessment Pain Scale: 0 Pain Presence: None/Denies Pain Type: N/A Pain Goal: 0 Pain Relief Measures: Comfort Measures Vaginal Exam Membrane Status: Intact Datetime: 10/23/2018 08:00 Maternal Assessment Level of Consciousness: Fully Conscious DTR's/Clonus: DTRs 2+ Headache: Denies Blurred Vision: No Respiratory Effort: Unlabored Breath Sounds, Left: Clear and Equal Breath Sounds, Right: Clear and Equal Nausea/Vomiting: Denies RUQ Epigastric Pain: Present Facial Edema: None Contraction Comments: pt denies feeling any uc's, no bleeding, no cramping Comments: off per orders Pain Assessment Pain Scale: 0 Pain Presence: None/Denies Pain Type: N/A Pain Goal: 0 Vaginal Exam Membrane Status: Intact Datetime: 10/23/2018 07:30 Assessment Type: Ongoing Assessment Maternal Assessment Level of Consciousness: Fully Conscious DTR's/Clonus: DTRs 2+; No Clonus Headache: Denies Blurred Vision: No Respiratory Effort: Unlabored; Regular Rhythm; Equal Expansion Breath Sounds, Left: Clear and Equal Breath Sounds, Right: Clear and Equal Nausea/Vomiting: Denies RUQ Epigastric Pain: Denies Lower Extremities Edema: None Upper Extremities Edema: None Facial Edema: None Fall Risk Assessment History of Falling: (0) No Secondary Diagnosis: (0) No Ambulatory Aid: (0) Bedrest/Nurse Assist IV Therapy: (0) No Gait: (0) Normal/Bedrest/Immobile Mental Status: (0) Oriented to Own Ability Fall Score: 0 Fall Risk Score Definition: No Risk: No action required Datetime: 10/23/2018 04:51 Maternal Assessment Level of Consciousness: Fully Conscious Headache: Denies Blurred Vision: No Respiratory Effort: Unlabored; Regular Rhythm; Equal Expansion Nausea/Vomiting: Denies RUQ Epigastric Pain: Denies Datetime: 10/23/2018 00:12 Maternal Assessment Level of Consciousness: Fully Conscious Headache: Denies Blurred Vision: No Respiratory Effort: Unlabored; Regular Rhythm; Equal Expansion Nausea/Vomiting: Denies Monitor Mode: External Monitor Mode: External US Comments: SECOND NST STARTED Pain Assessment Pain Scale: 0 Pain Presence: None/Denies Pain Type: N/A Datetime: 10/22/2018 20:28 Labor Evaluation Frequency: 0 Monitor Mode: External Pattern: Normal: <= 5 Contractions in 10 Minutes Heart Rate FHR Baseline Rate: 135 Monitor Mode: External US Variability: Moderate 6-25 bpm Accelerations: 15X15 Decelerations: None Category: Category I Comments: NST COMPLETE Datetime: 10/22/2018 19:59 Monitor Mode: External Monitor Mode: External US Comments: MONITORS APPLIED. NST STARTED. AUIBLE HEART TONES. Datetime: 10/22/2018 16:16 Maternal Assessment Level of Consciousness: Fully Conscious Headache: Denies Blurred Vision: No RUQ Epigastric Pain: Denies Datetime: 10/22/2018 14:51 Comments: NST complete and reactive. Datetime: 10/22/2018 14:27 Comments: NST starting now. Datetime: 10/22/2018 10:59 Comments: NST completed now. NST reactive. Datetime: 10/22/2018 10:38 Monitor Mode: External US Comments: NST started now. Datetime: 10/22/2018 07:41 Stage of : Antepartum Temperature Route: Oral Datetime: 10/22/2018 07:20 Assessment Type: Ongoing Assessment Maternal Assessment Level of Consciousness: Fully Conscious DTR's/Clonus: DTRs 2+; No Clonus Headache: Denies Blurred Vision: No Respiratory Effort: Unlabored; Regular Rhythm; Equal Expansion Breath Sounds, Left: Clear and Equal Breath Sounds, Right: Clear and Equal Nausea/Vomiting: Denies RUQ Epigastric Pain: Denies Lower Extremities Edema: None Degree: None Upper Extremities Edema: None Facial Edema: None Fall Risk Assessment History of Falling: (0) No Secondary Diagnosis: (0) No Ambulatory Aid: (0) Bedrest/Nurse Assist IV Therapy: (0) No Gait: (0) Normal/Bedrest/Immobile Mental Status: (0) Oriented to Own Ability Fall Score: 0 Fall Risk Score Definition: No Risk: No action required Datetime: 10/22/2018 04:27 Stage of : Antepartum Temperature Route: Oral Labor Evaluation Frequency: Occasional Monitor Mode: External Duration (sec)2399: 40-80 Resting Tone [place]: Relaxed Heart Rate FHR Baseline Rate: 120 Monitor Mode: External US Variability: Moderate 6-25 bpm Accelerations: 15X15 Decelerations: None Category: Category I Pain Presence: None/Denies Pain Type: N/A Pain Relief Measures: Comfort Measures Datetime: 10/22/2018 00:47 Stage of : Antepartum Temperature Route: Oral Datetime: 10/21/2018 21:03 Monitor Mode: External US Datetime: 10/21/2018 21:01 Monitor Mode: External US Datetime: 10/21/2018 20:59 Monitor Mode: External US Datetime: 10/21/2018 20:45 Stage of : Antepartum Labor Evaluation Frequency: NONE Monitor Mode: External Resting Tone [place]: Relaxed Heart Rate FHR Baseline Rate: 115 Monitor Mode: External US Variability: Moderate 6-25 bpm Accelerations: 15X15 Decelerations: None Category: Category I Pain Assessment Pain Scale: 0 Pain Presence: None/Denies Pain Type: N/A Pain Relief Measures: Comfort Measures Datetime: 10/21/2018 20:43 Stage of : Antepartum Monitor Mode: External Monitor Mode: External US Datetime: 10/21/2018 19:54 Stage of : Antepartum Labor Evaluation Frequency: x1 Monitor Mode: External Duration (sec)2399: 60 Pattern: Normal: <= 5 Contractions in 10 Minutes Resting Tone [place]: Relaxed Heart Rate FHR Baseline Rate: 120 Monitor Mode: External US Variability: Moderate 6-25 bpm Accelerations: 15X15 Decelerations: None Category: Category I Pain Assessment Pain Scale: 0 Pain Presence: None/Denies Pain Type: N/A Pain Relief Measures: Comfort Measures Datetime: 10/21/2018 19:36 Assessment Type: Ongoing Assessment Maternal Assessment Level of Consciousness: Fully Conscious DTR's/Clonus: DTRs 2+; No Clonus Headache: Denies Blurred Vision: No Respiratory Effort: Unlabored; Regular Rhythm; Equal Expansion Breath Sounds, Left: Clear and Equal Breath Sounds, Right: Clear and Equal Nausea/Vomiting: Denies RUQ Epigastric Pain: Denies Lower Extremities Edema: None Degree: None Upper Extremities Edema: None Degree: None Facial Edema: None Fall Risk Assessment History of Falling: (0) No Secondary Diagnosis: (0) No Ambulatory Aid: (0) Bedrest/Nurse Assist IV Therapy: (0) No Gait: (0) Normal/Bedrest/Immobile Mental Status: (0) Oriented to Own Ability Fall Score: 0 Fall Risk Score Definition: No Risk: No action required Datetime: 10/21/2018 19:32 Stage of : Antepartum Monitor Mode: External Monitor Mode: External US Pain Assessment Pain Scale: 0 Pain Presence: None/Denies Pain Type: N/A Pain Relief Measures: Comfort Measures Datetime: 10/21/2018 18:23 Labor Evaluation Frequency: none Pattern: Normal: <= 5 Contractions in 10 Minutes Resting Tone [place]: Relaxed Heart Rate FHR Baseline Rate: 148 Monitor Mode: External US FHR Baseline Changes: No Baseline Change Variability: Moderate 6-25 bpm Accelerations: 15X15 Decelerations: None Category: Category I Vaginal Exam Membrane Status: Intact Datetime: 10/21/2018 16:01 Fall Score: 0 Fall Risk Score Definition: No Risk: No action required Datetime: 10/21/2018 15:59 EGA: 35.3 Datetime: 09/14/2018 08:03 Fall Score: 0 Fall Risk Score Definition: No Risk: No action required Datetime: 09/13/2018 21:22 Fall Score: 0 Fall Risk Score Definition: No Risk: No action required Datetime: 09/13/2018 08:32 Fall Score: 0 Fall Risk Score Definition: No Risk: No action required Datetime: 09/12/2018 19:29 Fall Score: 0 Fall Risk Score Definition: No Risk: No action required Datetime: 09/11/2018 20:09 Fall Score: 0 Fall Risk Score Definition: No Risk: No action required Datetime: 09/11/2018 08:45 Fall Score: 0 Fall Risk Score Definition: No Risk: No action required Datetime: 09/10/2018 20:38 Fall Score: 0 Fall Risk Score Definition: No Risk: No action required Datetime: 09/09/2018 19:43 Fall Score: 0 Fall Risk Score Definition: No Risk: No action required Datetime: 09/09/2018 08:00 Fall Score: 0 Fall Risk Score Definition: No Risk: No action required Datetime: 09/08/2018 19:33 Fall Score: 0 Fall Risk Score Definition: No Risk: No action required Datetime: 09/07/2018 19:50 Fall Score: 0 Fall Risk Score Definition: No Risk: No action required Datetime: 09/07/2018 08:00 Fall Score: 0 Fall Risk Score Definition: No Risk: No action required Datetime: 09/06/2018 19:44 Fall Score: 0 Fall Risk Score Definition: No Risk: No action required Datetime: 09/06/2018 09:12 Fall Score: 0 Fall Risk Score Definition: No Risk: No action required Datetime: 09/05/2018 19:30 Fall Score: 0 Fall Risk Score Definition: No Risk: No action required Datetime: 09/05/2018 07:43 Fall Score: 0 Fall Risk Score Definition: No Risk: No action required Datetime: 09/04/2018 19:21 Fall Score: 0 Fall Risk Score Definition: No Risk: No action required Datetime: 09/04/2018 08:09 Fall Score: 0 Fall Risk Score Definition: No Risk: No action required Datetime: 09/03/2018 19:15 Fall Score: 0 Fall Risk Score Definition: No Risk: No action required Datetime: 09/02/2018 19:20 Fall Score: 0 Fall Risk Score Definition: No Risk: No action required Datetime: 09/02/2018 07:20 Fall Score: 0 Fall Risk Score Definition: No Risk: No action required Datetime: 09/01/2018 19:33 Fall Score: 0 Fall Risk Score Definition: No Risk: No action required Datetime: 08/31/2018 20:10 Fall Score: 0 Fall Risk Score Definition: No Risk: No action required Datetime: 08/30/2018 19:43 Fall Score: 0 Fall Risk Score Definition: No Risk: No action required Datetime: 08/30/2018 09:07 Fall Score: 0 Fall Risk Score Definition: No Risk: No action required Datetime: 08/29/2018 19:27 Fall Score: 0 Fall Risk Score Definition: No Risk: No action required Datetime: 08/29/2018 09:20 Fall Score: 0 Fall Risk Score Definition: No Risk: No action required Datetime: 08/28/2018 19:58 Fall Score: 0 Fall Risk Score Definition: No Risk: No action required Datetime: 08/28/2018 08:00 Fall Score: 0 Fall Risk Score Definition: No Risk: No action required Datetime: 08/27/2018 19:17 Fall Score: 0 Fall Risk Score Definition: No Risk: No action required Datetime: 08/26/2018 19:22 Fall Score: 0 Fall Risk Score Definition: No Risk: No action required Datetime: 08/26/2018 14:38 EGA: 27.3 Datetime: 08/26/2018 07:16 Fall Score: 0 Fall Risk Score Definition: No Risk: No action required Datetime: 08/25/2018 19:23 Fall Score: 0 Fall Risk Score Definition: No Risk: No action required Datetime: 08/25/2018 08:06 Fall Score: 0 Fall Risk Score Definition: No Risk: No action required Datetime: 08/24/2018 19:35 Fall Score: 0 Fall Risk Score Definition: No Risk: No action required Datetime: 08/24/2018 08:24 Fall Score: 0 Fall Risk Score Definition: No Risk: No action required Datetime: 08/23/2018 20:29 Fall Score: 0 Fall Risk Score Definition: No Risk: No action required Datetime: 08/23/2018 08:00 Fall Score: 0 Fall Risk Score Definition: No Risk: No action required Datetime: 08/22/2018 19:25 Fall Score: 0 Fall Risk Score Definition: No Risk: No action required Datetime: 08/21/2018 19:54 Fall Score: 0 Fall Risk Score Definition: No Risk: No action required Datetime: 08/21/2018 07:36 Fall Score: 20 Fall Risk Score Definition: No Risk: No action required Datetime: 08/20/2018 19:47 Fall Score: 0 Fall Risk Score Definition: No Risk: No action required Datetime: 08/19/2018 20:33 Fall Score: 0 Fall Risk Score Definition: No Risk: No action required Datetime: 08/18/2018 22:50 Fall Score: 20 Fall Risk Score Definition: No Risk: No action required Datetime: 08/18/2018 17:44 Fall Score: 0 Fall Risk Score Definition: No Risk: No action required Datetime: 08/18/2018 17:43 EGA: 26.2
== END 2018-10-27 00:22 | disposition home or self-care (01) ==
LOC: OBT 20:11 → L-D 20:13 → OBT 10-27 00:22
PROVIDERS: ATTEND Obstetrics & Gynecology
DX: O13.3 Gestational [pregnancy-induced] hypertension without significant proteinuria, third trimester (principal); Z3A.36 36 weeks gestation of pregnancy
CPT/HCPCS: 76818; 80053; 81001; 84560; 85025; Z7500; G0463

== ENCOUNTER 2018-10-30 15:10 | Inpatient (IN) | payer MEDICAID ==
[~2018-10-30] VITALS: Ht 154.9 cm; Wt 132.4 kg
[~2018-10-30 15:10] MED LIST changes: -ACET500C5 PO; -CEPH-443 PO; +PREN-93 PO
[2018-10-30 15:30] VITALS: BP 111/54; PULSE 73; RESP 18; Ht 154.9 cm; Wt 132.4 kg
[2018-10-30] MEDS ORDERED: LACTATED RINGER'S 1,000 ML IV* SCH (16:00)
[2018-10-30] MEDS ORDERED: AL HYDROX/MG HYDROX/SIMETH 30 ML CUP PO PRN (17:30)
[2018-10-30] MEDS ORDERED: ACETAMINOPHEN 325 MG TAB PO PRN (17:30)
--- NOTE | 2018-10-30 18:01 | HP ---
Date/Time of Note Date/Time of Note DATE: 10/30/18 TIME: 17:57 OB - History Hx of Present Free Text/Dictation October 30, 2018 : 1 Para: 0 Other Concerns: 33-year-old G1, P0 with IUP at 36 weeks and 5 days with history of mild hypertension and history of labor that currently resolved had been monitored and following up by testing twice a week she was noted to have variables during NST and was sent to labor and delivery for monitorimg. Due to presents of occasional variables and marked variability patient was admitted for observation and monitoring in house with a plan to deliver at 37 weeks. Patient status post 2 courses of steroid at 30's week and prior to that due to labor and Preclampsia, Currently BP well controlled when resting in the hosptial. Denies any headache, blurred vision, epigastric pain or right upper quadrant pain. Denies any leaking of fluid, vaginal bleeding or decreased movement. Past Family/Social History * Past Medical, Surgical, Family and Obstetric Histories reviewed from chart. OB Admission Exam Vital Signs Vital Signs Vital Signs Date Temp Pulse Resp B/P (MAP) Pulse Ox O2 O2 Flow FiO2 Time Delivery Rate 10/30/18 98.5 73 18 111/54 Room Air 15:30 (73) Physical Exam HEENT: WNL Lungs: Clear Abdomen: WNL Extremities: Normal Cervical Dilatation: None Effacement: 0% Membranes: Intact Heart Rate: 130's Accelerations: Accelerations Present Decelerations: Variable Decelerations Varibility: Marked Contractions on Admission: >10 Minutes Apart Intensity: Mild Last 72 hours Lab Results VS - Last 72 Hours, by Label Date Temp Pulse Resp B/P (MAP) Pulse Ox O2 O2 Flow FiO2 Time Delivery Rate 10/30/18 98.5 73 18 111/54 Room Air 15:30 (73) OB Assessment/Plan Other Assessment: IUP at 36 weeks and 5 days Gestational hypertension, currently blood pressures are within normal limits without meds, denies any symptoms Occasional variable deceleration with marked variability Status post 2 course of steroids We will admit the patient to the hospital for monitoring Consider delivery at 37 weeks or sooner if she had any evidence of nonreassuring heart tracing, preeclampsia symptoms signs or lab abnormalities patient verbalized understanding. All questions were answered to patient's best satisfaction PATSY DEVI MD October 30, 2018 18:01
--- NOTE | 2018-10-30 18:01 | TRIAGE ---
OB Triage Datetime Report Generated by CPN: 10/30/2018 18:01 Datetime: 10/30/2018 15:25 Assessment Type: Triage Maternal Assessment Level of Consciousness: Fully Conscious DTR's/Clonus: DTRs 2+; No Clonus Headache: Denies Blurred Vision: No Respiratory Effort: Unlabored; Regular Rhythm; Equal Expansion Breath Sounds, Left: Clear and Equal Breath Sounds, Right: Clear and Equal Nausea/Vomiting: Denies RUQ Epigastric Pain: Denies Lower Extremities Edema: Bilateral Lower Extremities Degree: None Upper Extremities Edema: None Degree: None Facial Edema: None Fall Risk Assessment History of Falling: (0) No Secondary Diagnosis: (0) No Ambulatory Aid: (0) Bedrest/Nurse Assist IV Therapy: (0) No Gait: (0) Normal/Bedrest/Immobile Mental Status: (0) Oriented to Own Ability Fall Score: 0 Fall Risk Score Definition: No Risk: No action required Datetime: 10/30/2018 15:24 Time of Arrival: 10/30/2018 14:52 EGA: 36.5 Arrived By: Ambulatory Arrived From: Other Unit in Hospital Chief Complaint: PT. SENT FROM [facility] FOR VARIABLE DECELS Movement: Present Contractions: Denies/Absent Rupture of Membranes: Denies Vaginal Bleeding: None Vaginal Discharge: Denies Recent Sexual Intercouse: Denies Abdominal Trauma: Not Applicable Patient Complaints: None Time Provider Notified: 10/30/2018 15:38 Provider Notified: HADADIAN Initial Plan: NST, BPP Datetime: 10/30/2018 15:23 Monitor Mode: External Monitor Mode: External US Datetime: 10/26/2018 23:56 Stage of : OB Triage Labor Evaluation Frequency: x4 Monitor Mode: External Duration (sec)2399: 50-110 Quality: Mild Pattern: Normal: <= 5 Contractions in 10 Minutes Resting Tone [place]: Relaxed Heart Rate FHR Baseline Rate: 120 Monitor Mode: External US FHR Baseline Changes: No Baseline Change Variability: Moderate 6-25 bpm Accelerations: 15X15 Decelerations: Variable Category: Category II Datetime: 10/26/2018 23:53 Stage of : OB Triage Datetime: 10/26/2018 23:00 Stage of : OB Triage Labor Evaluation Frequency: x1 Monitor Mode: External Duration (sec)2399: 40 Quality: Mild Pattern: Normal: <= 5 Contractions in 10 Minutes Resting Tone [place]: Relaxed Heart Rate FHR Baseline Rate: 120 Monitor Mode: External US FHR Baseline Changes: No Baseline Change Variability: Moderate 6-25 bpm Accelerations: 15X15 Datetime: 10/26/2018 22:00 Stage of : OB Triage Labor Evaluation Frequency: x2 Monitor Mode: External Duration (sec)2399: 60-70 Quality: Mild Pattern: Normal: <= 5 Contractions in 10 Minutes Resting Tone [place]: Relaxed Heart Rate FHR Baseline Rate: 120 Monitor Mode: External US Variability: Marked >25 bpm Accelerations: 15X15 Decelerations: Variable Category: Category II Datetime: 10/26/2018 21:43 Stage of : OB Triage Datetime: 10/26/2018 21:00 Stage of : OB Triage Labor Evaluation Frequency: x2 Monitor Mode: External Duration (sec)2399: 50-60 Quality: Mild Pattern: Normal: <= 5 Contractions in 10 Minutes Resting Tone [place]: Relaxed Heart Rate FHR Baseline Rate: 125 Monitor Mode: External US Variability: Marked >25 bpm Accelerations: 15X15 Decelerations: None Category: Category II Datetime: 10/26/2018 20:44 Stage of : OB Triage Datetime: 10/26/2018 20:32 Fall Score: 0 Fall Risk Score Definition: No Risk: No action required Datetime: 10/26/2018 20:28 EGA: 36.1 Datetime: 10/26/2018 20:26 Stage of : OB Triage Monitor Mode: External Contraction Comments: [place] applied Monitor Mode: External US Comments: EFM applied Datetime: 10/23/2018 07:30 Fall Score: 0 Fall Risk Score Definition: No Risk: No action required Datetime: 10/22/2018 07:20 Fall Score: 0 Fall Risk Score Definition: No Risk: No action required Datetime: 10/21/2018 19:36 Fall Score: 0 Fall Risk Score Definition: No Risk: No action required Datetime: 10/21/2018 16:01 Fall Score: 0 Fall Risk Score Definition: No Risk: No action required Datetime: 10/21/2018 15:59 EGA: 35.3 Datetime: 09/14/2018 08:03 Fall Score: 0 Fall Risk Score Definition: No Risk: No action required Datetime: 09/13/2018 21:22 Fall Score: 0 Fall Risk Score Definition: No Risk: No action required Datetime: 09/13/2018 08:32 Fall Score: 0 Fall Risk Score Definition: No Risk: No action required Datetime: 09/12/2018 19:29 Fall Score: 0 Fall Risk Score Definition: No Risk: No action required Datetime: 09/11/2018 20:09 Fall Score: 0 Fall Risk Score Definition: No Risk: No action required Datetime: 09/11/2018 08:45 Fall Score: 0 Fall Risk Score Definition: No Risk: No action required Datetime: 09/10/2018 20:38 Fall Score: 0 Fall Risk Score Definition: No Risk: No action required Datetime: 09/09/2018 19:43 Fall Score: 0 Fall Risk Score Definition: No Risk: No action required Datetime: 09/09/2018 08:00 Fall Score: 0 Fall Risk Score Definition: No Risk: No action required Datetime: 09/08/2018 19:33 Fall Score: 0 Fall Risk Score Definition: No Risk: No action required Datetime: 09/07/2018 19:50 Fall Score: 0 Fall Risk Score Definition: No Risk: No action required Datetime: 09/07/2018 08:00 Fall Score: 0 Fall Risk Score Definition: No Risk: No action required Datetime: 09/06/2018 19:44 Fall Score: 0 Fall Risk Score Definition: No Risk: No action required Datetime: 09/06/2018 09:12 Fall Score: 0 Fall Risk Score Definition: No Risk: No action required Datetime: 09/05/2018 19:30 Fall Score: 0 Fall Risk Score Definition: No Risk: No action required Datetime: 09/05/2018 07:43 Fall Score: 0 Fall Risk Score Definition: No Risk: No action required Datetime: 09/04/2018 19:21 Fall Score: 0 Fall Risk Score Definition: No Risk: No action required Datetime: 09/04/2018 08:09 Fall Score: 0 Fall Risk Score Definition: No Risk: No action required Datetime: 09/03/2018 19:15 Fall Score: 0 Fall Risk Score Definition: No Risk: No action required Datetime: 09/02/2018 19:20 Fall Score: 0 Fall Risk Score Definition: No Risk: No action required Datetime: 09/02/2018 07:20 Fall Score: 0 Fall Risk Score Definition: No Risk: No action required Datetime: 09/01/2018 19:33 Fall Score: 0 Fall Risk Score Definition: No Risk: No action required Datetime: 08/31/2018 20:10 Fall Score: 0 Fall Risk Score Definition: No Risk: No action required Datetime: 08/30/2018 19:43 Fall Score: 0 Fall Risk Score Definition: No Risk: No action required Datetime: 08/30/2018 09:07 Fall Score: 0 Fall Risk Score Definition: No Risk: No action required Datetime: 08/29/2018 19:27 Fall Score: 0 Fall Risk Score Definition: No Risk: No action required Datetime: 08/29/2018 09:20 Fall Score: 0 Fall Risk Score Definition: No Risk: No action required Datetime: 08/28/2018 19:58 Fall Score: 0 Fall Risk Score Definition: No Risk: No action required Datetime: 08/28/2018 08:00 Fall Score: 0 Fall Risk Score Definition: No Risk: No action required Datetime: 08/27/2018 19:17 Fall Score: 0 Fall Risk Score Definition: No Risk: No action required Datetime: 08/26/2018 19:22 Fall Score: 0 Fall Risk Score Definition: No Risk: No action required Datetime: 08/26/2018 14:38 EGA: 27.3 Datetime: 08/26/2018 07:16 Fall Score: 0 Fall Risk Score Definition: No Risk: No action required Datetime: 08/25/2018 19:23 Fall Score: 0 Fall Risk Score Definition: No Risk: No action required Datetime: 08/25/2018 08:06 Fall Score: 0 Fall Risk Score Definition: No Risk: No action required Datetime: 08/24/2018 19:35 Fall Score: 0 Fall Risk Score Definition: No Risk: No action required Datetime: 08/24/2018 08:24 Fall Score: 0 Fall Risk Score Definition: No Risk: No action required Datetime: 08/23/2018 20:29 Fall Score: 0 Fall Risk Score Definition: No Risk: No action required Datetime: 08/23/2018 08:00 Fall Score: 0 Fall Risk Score Definition: No Risk: No action required Datetime: 08/22/2018 19:25 Fall Score: 0 Fall Risk Score Definition: No Risk: No action required Datetime: 08/21/2018 19:54 Fall Score: 0 Fall Risk Score Definition: No Risk: No action required Datetime: 08/21/2018 07:36 Fall Score: 20 Fall Risk Score Definition: No Risk: No action required Datetime: 08/20/2018 19:47 Fall Score: 0 Fall Risk Score Definition: No Risk: No action required Datetime: 08/19/2018 20:33 Fall Score: 0 Fall Risk Score Definition: No Risk: No action required Datetime: 08/18/2018 22:50 Fall Score: 20 Fall Risk Score Definition: No Risk: No action required Datetime: 08/18/2018 17:44 Fall Score: 0 Fall Risk Score Definition: No Risk: No action required Datetime: 08/18/2018 17:43 EGA: 26.2
[2018-10-30] MEDS: LACTATED RINGER'S 1,000 ML IV SCH (18:46)
--- NOTE | 2018-10-30 22:40 | NSTRPT ---
NST Information Datetime Report Generated by CPN: 10/30/2018 22:40 Datetime: 10/30/2018 13:30 NST Information EGA: 36.5 Test Number: 1 Time on Monitor: 10/30/2018 14:06 Time off Monitor: 10/30/2018 14:20 NST Duration (Min): 14 Reason for NST: Gestational Hypertension Reason for NST Other: Short cervix Test and Monitor Explained: Monitor Explained; Test Explained; Verbalized Understanding; Breastfeed ing Info Given Pulse: 84 SBP: 125 DBP: 62 Test Evaluation NST Interventions: Reposition Patient Patient States Movement: Present Contraction Frequency: NONE FHR Baseline : 135 Variability: Moderate 6-25bpm Accelerations: 15X15 Decelerations: Variable FHR Category: Category II NST Results: Non-Reactive Comments: To US KAYCEE 10.6. CEPHALIC STRIP REVIEW BY DR ASHLEY. PT SENT TO HOSPITAL FOR EXTENDED MONITORING RT VARIABLES NST STOPPED BEFORE 20 MINS RT POC OF SENDING PT TO HOSPITAL Dr. Ashley: Delivery at 37 weeks is recommended unless there is evidence of NRFHT or sign/symptom of severe preeclampsia Electronically Signed By E-Signature: with User ID: [id number]
[2018-10-31] MEDS: LACTATED RINGER'S 1,000 ML IV SCH ×3 (01:05→22:43)
--- NOTE | 2018-10-31 21:16 | QN ---
Documentation Comment 33 years old 1 with single intrauterine at 36 weeks and 6 days with preeclampsia and obesity seen at the [facility] clinic yesterday, variable deceleration was noted, she transferred to labor and delivery for close monitoring. She states good movement. She denies nausea, vomiting, shortness of breath, chest pain, headache, visual changes, vaginal bleeding or LOF. She has a history of labor in current with short cervix which was admitted previously and currently is steroid benefited. heart rate category 1 No uterine contractions Induction of labor at 37 weeks Exam, labs, ultrasound, management discussed in detail with patient. She expressed understanding. All of her questions answered. Admission, procedures, expectations, risks and possible complications have been discussed in detail with the patient. Risk of vaginal delivery including but not limited to bleeding, infection, cervical laceration, placental retention, injury to fetus, blood transfusion, blood transfusion related infection, risk of anesthesia, adhesion, cervical laceration, episiotomy/laceration, possible delivery with risk of bleeding, infection, injury to other organs (bowel, bladder, ureter, vessels, nerves), injury to fetus, blood transfusion, blood transfusion related infection, risk of anesthesia, scar and hernia formation, needs for future , removal of uterus or any other indicated surgery discussed with the patient. She expressed understanding and repeats the risks. All of her questions were answered. She signed the informed consent. PHYSICIAN'S VERIFICATION OF INFORMED CONSENT The patient was counseled regarding the procedure, its indications, risks, potential complications and alternatives and any questions were answered. Consent was obtained. PLANNED PROCEDURE/TREATMENT: Vaginal delivery, episiotomy, repair of laceration possible delivery MERA RICO October 31, 2018 21:16
[2018-10-31] MEDS ORDERED: OXYTOCIN 30 UNITS/LR 500 ML IV SCH ×2 (21:30)
[2018-10-31] MEDS ORDERED: OXYTOCIN 30 UNITS/LR 500 ML IV PRN (21:30)
[2018-10-31] MEDS ORDERED: METHYLERGONOVINE 0.2 MG INJ IM PRN (21:30)
[2018-10-31] MEDS ORDERED: MISOPROSTOL 200 MCG TAB PR PRN (21:30)
[2018-10-31] MEDS ORDERED: BUTORPHANOL 2 MG INJ IV PRN ×2 (21:30)
[2018-10-31] MEDS ORDERED: LIDOCAINE 1% (MPF) 30 ML INJ INJ PRN (21:30)
[2018-10-31] MEDS ORDERED: CARBOPROST 250 MCG INJ IM PRN (21:30)
[2018-10-31] MEDS ORDERED: IBUPROFEN 600 MG TAB PO PRN (21:30)
[2018-10-31] MEDS: PRENATAL VITAMIN PO SCH (22:52)
[2018-11-01] MEDS ORDERED: MISOPROSTOL 50 MCG CAPSULE PO SCH
[2018-11-01] MEDS: OXYTOCIN 30 UNITS/LR 500 ML IV SCH (00:46)
[2018-11-01] MEDS: LACTATED RINGER'S 1,000 ML IV SCH ×4 (01:24→18:11)
[2018-11-01] MEDS: PRENATAL VITAMIN PO SCH (09:00)
[2018-11-02] MEDS: LACTATED RINGER'S 1,000 ML IV SCH ×3 (02:18→17:50)
[2018-11-02] MEDS: OXYTOCIN 30 UNITS/LR 500 ML IV SCH (02:29)
--- NOTE | 2018-11-02 10:11 | QN ---
Documentation Comment 33 years old 1 with single intrauterine at 37 weeks and 1 days with preeclampsia and obesity - FHR: No sign of metabolic acidosis- Category I - Continuous EFM, toco - Analgesia options with R/B/A discussed in detail with patient - Epidural per patient request - SVE: /-3/ceph/intact.difficult to monitor contractions and heart rate due to morbid obesity - AROM done, clear. IUPC and FS inserted. She tolerated procedure well - She is currently on Pitocin, continue to increase Pitocin as needed please see the orders MERA RICO November 02, 2018 10:11
--- NOTE | 2018-11-02 20:11 | LDN ---
Date/Time of Note Date/Time of Note DATE: 11/02/18 TIME: 20:06 Delivery Summary 33 years old 1 with single intrauterine at 37 weeks and 1 days delivered a viable male over third-degree laceration at 19:05. Delivery was vacuum-assisted due to bradycardia. There was nuchal cordx2, delivered through. Cord clamp and caught after stopping pulsation. Baby given to the nurse. Placenta delivered spontaneously with three-vessel cord and sent to pathology. Laceration repaired with 0 and 2-0 Vicryl. Patient tolerated procedure well. Weight 6 pounds 12 ounces Height 18 inches 9 at 1 minutes and 9 at 5 minutes EBL 350 mL, Cytotec 400 p.o. on 400 rectally given Weeks of Gestation 37 weeks and 1 day Assisted Vaginal Delivery: Vacuum (Due to bradycardia) Placenta Delivered: Spontaneously Anesthesia type: Local Estimated blood loss: 350 Sponge & Needle done & correct: Yes All needle counts correct: Yes Any foreign bodies felt in the: Yes Infant Delivery Information Sex Infant Sex: male Apgars 1 Minute: 9 5 Minute: 9 10 Minute: 10 Suctioning Nose & mouth suctioned at shannon: Yes Umbilical Cord Umbilical cord with: 3 Vessels Cord presentations: nuchal cord Nuchal cord present X: 2 Cord Blood was obtained: Yes Mother & Baby Disposition Disposition Mom & Baby to Maternity; Good: Yes MERA RICO November 02, 2018 20:11
[2018-11-02] MEDS ORDERED: DIPHENHYDRAMINE 50 MG INJ IV PRN (22:00)
[2018-11-02] MEDS ORDERED: OXYCODONE/ASPIRIN (4.88/325) TAB PO PRN (22:00)
[2018-11-02] MEDS ORDERED: DEXTROSE 5%-LR 1,000 ML IV SCH (22:00)
[2018-11-02] MEDS ORDERED: ZOLPIDEM 5 MG TAB PO PRN (22:00)
[2018-11-02] MEDS ORDERED: BENZOCAINE 20% 56 ML SPRAY TOP PRN (22:00)
[2018-11-02] MEDS ORDERED: LACTATED RINGER'S 1,000 ML IV* SCH (22:00)
[2018-11-02] MEDS ORDERED: METHYLERGONOVINE 0.2 MG INJ IM PRN (22:00)
[2018-11-02] MEDS ORDERED: ACETAMINOPHEN 325 MG TAB PO PRN (22:00)
[2018-11-02] MEDS ORDERED: MISOPROSTOL 200 MCG TAB PR PRN (22:00)
[2018-11-02] MEDS ORDERED: WITCH HAZEL/GLYCERIN PAD PR PRN (22:00)
[2018-11-02] MEDS ORDERED: LANOLIN HPA 1 PKT TOP PRN (22:00)
[2018-11-02] MEDS ORDERED: DIBUCAINE 1% 30 GM OINT TOP PRN (22:00)
[2018-11-02] MEDS ORDERED: MAGNESIUM HYDROXIDE 30ML CUP PO PRN (22:00)
[2018-11-02] MEDS ORDERED: ONDANSETRON 4 MG INJ IV PRN (22:00)
[2018-11-02] MEDS ORDERED: SENNA/DOCUSATE NA (8.6MG/50MG) TAB PO PRN (22:00)
[2018-11-02] MEDS ORDERED: CARBOPROST 250 MCG INJ IM PRN (22:00)
[2018-11-02] MEDS ORDERED: OXYTOCIN 30 UNITS/LR 500 ML IV PRN (22:00)
[2018-11-02 22:15] VITALS: BP 137/60; PULSE 68; RESP 19
[2018-11-03] MEDS: IBUPROFEN 600 MG TAB PO SCH ×4 (00:27→17:50)
[2018-11-03 04:18] VITALS: BP 124/59; RESP 19
--- NOTE | 2018-11-03 07:13 | QN ---
Documentation Comment day #1 Status post vacuum-assisted delivery Patient stable and afebrile Vital signs stable VS - Last 72 Hours, by Label Date Temp Pulse Resp B/P (MAP) Pulse Ox O2 O2 Flow FiO2 Time Delivery Rate 11/03/18 98.3 19 124/59 High Flow 04:18 (80) 11/02/18 98.2 68 19 137/60 Room Air 22:15 (85) Hematology - 72 Hrs Test 10/31/18 22:16 11/03/18 07:18 Hematocrit 37.6 % (37.0-47.0) 31.6 % (37.0-47.0) L Hemoglobin 12.1 g/dl (12.0-16.0) 10.4 g/dl (12.0-16.0) L Mean Corpuscular 29.2 pg (29.0-33.0) 29.5 pg (29.0-33.0) Hemoglobin Mean Corpuscular 32.2 g/dl (32.0-37.0) 32.9 g/dl (32.0-37.0) Hemoglobin Concent Mean Corpuscular Volume 90.8 fl (82.0-101.0) 89.8 fl (82.0-101.0) Mean Platelet Volume 10.8 fl (7.4-10.4) H 10.9 fl (7.4-10.4) H Platelet Count 220 10^3/UL (140-415) 198 10^3/UL (140-415) Red Blood Count 4.14 10^6/ul (4.20-5.40) 3.52 10^6/ul (4.20-5.40) L L Red Cell Distribution 14.5 % (11.5-14.5) 14.0 % (11.5-14.5) Width White Blood Count 6.8 10^3/ul (4.8-10.8) 11.5 10^3/ul (4.8-10.8) #H Abdomen soft, fundus firm Perineum intact Extremities nontender Assessment and plan Patient stable and doing well Colace 100 mg p.o. twice daily Continue with routine care MARGIE HALE MD November 03, 2018 07:13
[2018-11-03 08:00] VITALS: BP 101/48; PULSE 63; RESP 18
[2018-11-03] MEDS: DOCUSATE SODIUM 100 MG CAP PO SCH ×2 (09:03→21:41)
[2018-11-03 12:01] VITALS: BP 110/50; PULSE 64; RESP 18
[2018-11-03 15:50] VITALS: BP 100/56; PULSE 69; RESP 18
[2018-11-03 16:20] VITALS: BP 101/56; PULSE 69; RESP 18
[2018-11-03 19:40] VITALS: BP 106/56; PULSE 61; RESP 18
[2018-11-04] MEDS: IBUPROFEN 600 MG TAB PO SCH ×3 (00:36→12:33)
[2018-11-04 04:00] VITALS: BP 99/59; PULSE 65; RESP 20
[2018-11-04 08:00] VITALS: BP 99/58; PULSE 57; RESP 18
[2018-11-04] MEDS ORDERED: MEASLES,MUMPS,RUBELLA VACCINE INJ SC* ONE (09:00)
[2018-11-04] MEDS ORDERED: DIPHTH/TET/ACEL PERTUSS (ADULT) 0.5 ML VIAL IM* ONE (09:00)
[2018-11-04] MEDS: DOCUSATE SODIUM 100 MG CAP PO SCH (09:05)
--- NOTE | 2018-11-04 11:46 | QN ---
Documentation Comment day #2 Status post vacuum-assisted delivery Patient stable and afebrile Vital signs stable VS - Last 72 Hours, by Label Date Temp Pulse Resp B/P (MAP) Pulse Ox O2 O2 Flow FiO2 Time Delivery Rate 11/04/18 97.5 57 18 99/58 (72) 08:00 11/04/18 97.8 65 20 99/59 (72) Room Air 04:00 11/03/18 97.9 61 18 106/56 Room Air 19:40 (73) 11/03/18 97.8 69 18 101/56 16:20 (71) 11/03/18 97.8 69 18 100/56 15:50 (71) 11/03/18 97.9 64 18 110/50 12:01 (70) 11/03/18 97.9 63 18 101/48 08:00 (65) 11/03/18 98.3 19 124/59 High Flow 04:18 (80) 11/02/18 98.2 68 19 137/60 Room Air 22:15 (85) Hematology - 72 Hrs Test 11/03/18 07:18 Hematocrit 31.6 % (37.0-47.0) L Hemoglobin 10.4 g/dl (12.0-16.0) L Mean Corpuscular Hemoglobin 29.5 pg (29.0-33.0) Mean Corpuscular Hemoglobin Concent 32.9 g/dl (32.0-37.0) Mean Corpuscular Volume 89.8 fl (82.0-101.0) Mean Platelet Volume 10.9 fl (7.4-10.4) H Platelet Count 198 10^3/UL (140-415) Red Blood Count 3.52 10^6/ul (4.20-5.40) L Red Cell Distribution Width 14.0 % (11.5-14.5) White Blood Count 11.5 10^3/ul (4.8-10.8) #H Abdomen soft, fundus firm Perineum intact Extremities nontender Assessment and plan Patient stable and doing well Plan to discharge home Patient instructed to follow-up with her own CASH TELLER in 2 and 6 weeks MARGIE HALE MD November 04, 2018 11:46
--- NOTE | 2018-11-04 11:57 | DS ---
Date/Time of Note Date/Time of Note DATE: 11/04/18 TIME: 11:56 Obstetrical Discharge Record Final Diagnosis Final Diagnosis: Term delivered Other Final Diagnosis day #2 Status post vacuum-assisted delivery Patient stable and afebrile and doing well Plan to discharge home Patient instructed to follow-up with her own ENGINEERING LAB TECHNICIAN in 2 and 6 weeks Vaginal Delivery Obstetrical Delivery: Vacuum Extraction Condition on Discharge Physical Assessment Last Vitals: VS - Last 72 Hours, by Label Date Temp Pulse Resp B/P (MAP) Pulse Ox O2 O2 Flow FiO2 Time Delivery Rate 11/04/18 97.5 57 18 99/58 (72) 08:00 11/04/18 97.8 65 20 99/59 (72) Room Air 04:00 11/03/18 97.9 61 18 106/56 Room Air 19:40 (73) 11/03/18 97.8 69 18 101/56 16:20 (71) 11/03/18 97.8 69 18 100/56 15:50 (71) 11/03/18 97.9 64 18 110/50 12:01 (70) 11/03/18 97.9 63 18 101/48 08:00 (65) 11/03/18 98.3 19 124/59 High Flow 04:18 (80) 11/02/18 98.2 68 19 137/60 Room Air 22:15 (85) Voiding: Yes Bowel Movement: Yes Breast: Soft, non-tender Fundus: Firm Calf Tenderness: No Patient Condition: Good Copies To: CC: MERA RICO BAHAREH MD November 04, 2018 11:57
--- NOTE | 2018-11-05 18:42 | DELSUM ---
Delivery Summary A-C Datetime Report Generated by CPN: 11/05/2018 18:42 DELIVERY PERSONNEL Metal Filer: Orel, Chloe MATERNAL INFORMATION Delivery Anesthesia: Local Medications in Delivery: Pitocin 30 units in LR 500 ml, lidocaine, stadol 2 mg, cytotec Delivery QBL (ml): 350 Placenta Cultured: No Maternal Complications: Other Other Maternal Complications: obease, hx of AMA, short cervix, r/o PIH, LABOR SUMMARY EDC: 11/22/2018 00:00 No. Babies in Womb: 1 Attempted: No Labor Anesthesia: None LABOR INFORMATION Reason for Induction: Gest. HTN/PreEclam/Eclamp Onset of Labor: 11/01/2018 00:46 Complete Dilatation: 11/02/2018 18:50 Oxytocin: Augmentation Group B Beta Strep: Negative Steroids Given: Full Course; >24Hs before Delivery Reason Steroids Not Administered: Indication; Maternal Indication MEMBRANES Membranes Rupture Method: Artificial Rupture of Membranes: 11/02/2018 09:48 Length of Rupture (hr): 9.28 Amniotic Fluid Color: Clear Amniotic Fluid Amount: Moderate Amniotic Fluid Odor: None STAGES OF LABOR Stage 1 hr: 42 Stage 1 min: 4 Stage 2 hr: 0 Stage 2 min: 15 Stage 3 hr: 0 Stage 3 min: 3 Total Time in Labor hr: 42 Total Time in Labor min: 22 VAGINAL DELIVERY Episiotomy: None Laceration Extension: Third Degree Laceration Type: Perineal Laceration Repair: Yes Initial Vag Sponge Count: 10 Final Vag Sponge Count: 20 Initial Vag Sharps Count: 1 Final Vag Sharps Count: 4 Sponge Count Correct: Yes Sharps Count Correct: Yes BABY A INFORMATION Delivery Date/Time: 11/02/2018 19:05 Method of Delivery: Vaginal Born in Route : Yes : N/A Forceps: N/A Vacuum Extraction: Successful Shoulder Dystocia : N/A ASSISTED DELIVERY BABY A Indication for Assisted Delivery: Variable decelerations Catheter Prior to Procedure: Yes Vacuum Number of Pulls: 3 Vacuum Number of PopOffs: 0 Vacuum Chief Of Party: KIWI SHOULDER DYSTOCIA BABY A Delivery Date/Time: 11/02/2018 19:05 PRESENTATION/POSITION BABY A Presentation: Cephalic Cephalic Presentation: Vertex Vertex Position: Left Occipital Anterior Breech Presentation: N/A PLACENTA INFORMATION BABY A Placenta Delivery Time : 11/02/2018 19:08 Placenta Method of Delivery: Spontaneous Placenta Status: Delivered SCORES BABY A Heart Rate 1 min: >100 bpm Resp Effort 1 min: Good Cry Reflex Irritability 1 min: Cough/Sneeze/Pulls Away Muscle Tone 1 min: Active Motion Color 1 min: Body [place], Extremit Blue Resuscitation Effort 1 min: Tactile Stimulation SCORE 1 MIN: 9 Heart Rate 5 min: >100 bpm Resp Effort 5 min: Good Cry Reflex Irritability 5 min: Cough/Sneeze/Pulls Away Muscle Tone 5 min: Active Motion Color 5 min: Body [place], Extremit Blue Resuscitation Effort 5 min: Tactile Stimulation SCORE 5 MIN: 9 INFANT INFORMATION BABY A Gestational Age at Delivery: 37.0 Gestational Status: Early Term- 37- 38.6 Weeks Infant Outcome : Liveborn Infant Condition : Stable Sex: Male IDENTIFICATION/MEDS BABY A ID Band Number: [id number] ID Band Location: Right Leg; Left Arm Sensor Applied: Yes Sensor Number: [id number] Sensor Location : Cord Clamp Vitamin K Given : Not Given Erythromycin Given: Not Given WEIGHT/LENGTH BABY A Infant Birthweight (gm): 2790 Weight (lb): 6 Infant Weight (oz): 2 Infant Length (in): 18.00 Length (cm): 45.72 CORD INFORMATION BABY A No. Cord Vessels: 3 Nuchal Cord : Around Neck x2, Tight Cord Blood Taken: Yes Infant Suction: Mouth; Nose ASSESSMENT BABY A Complications: Multiple Variable Decels Complications- Other: procardia, beta 10/16/18 _ 10/17/18, short cervix, PIH Physical Findings at Delivery: Within Normal Limits Respirations: Grunting Motel Keeper/ALS Called : No Transferred To: Remains with Mother
== END 2018-11-04 18:42 | disposition home or self-care (01) | DRG 807 ==
LOC: OBT 15:10 → L-D 15:11 → OBT 16:55 → L-D 16:55 → PP1 11-02 22:02
PROVIDERS: ADMIT Obstetrics & Gynecology; ATTEND Obstetrics & Gynecology
PROC: 10D07Z8 Extraction of Products of Conception, Other, Via Natural or Artificial Opening (ICD-10-PCS; principal; 2018-11-02)
PROC: 3E033VJ Introduction of Other Hormone into Peripheral Vein, Percutaneous Approach (ICD-10-PCS; 2018-11-02)
DX: O13.4 Gestational [pregnancy-induced] hypertension without significant proteinuria, complicating childbirth (principal); Z37.0 Single live birth; O76 Abnormality in fetal heart rate and rhythm complicating labor and delivery; O69.81X0 Labor and delivery complicated by cord around neck, without compression, not applicable or unspecified; Z3A.37 37 weeks gestation of pregnancy
CPT/HCPCS: 36415; 76815; 76818; 85025; 85610; 85730; 86592; 86850; 86900; 86901; 87340; 90715; 96360; 99464; G0463; J0595; J2210; J2590; J7120; J7121